=== PATIENT | female | born 1955 | race Caucasian/White ===

== ENCOUNTER 2020-04-20 12:11 | Inpatient (IN) | payer MEDICARE, MEDICAID ==
[~2020-04-20] VITALS: Ht 160 cm; Wt 47.8 kg
[~2020-04-20 12:11] MED LIST: ACET1TAB55 PO; BACL10TA2 PO; BACT2OIN10 TOP; BISA10SU4 PR; BISA5TAB29 PO; BISA5TAB7 PO; CAL-1CHW PO; CALC500T61 PO; CEFD1CAP8 PO; CRAN425C2 PO; DIAZ2TAB PO; DOCU100C16 PO; DRIS50003 PO; FENT25DI33 TD; FLEEENE4 PR; KETO2SHA8 TOP; LEVO88TA3 PO; MAPA500C PO; MILK120011 PO; OXYC1TAB23 PO; PERC5TAB12 PO; TYLE325T5 PO; VITMTA PO; cholecalciferol OR; fentanyl patch TOP; ketoconazole; milk of magnesia OR; multivitamin OR; tylenol OR
[2020-04-20 18:25] VITALS: BP 148/91
[2020-04-20] MEDS ORDERED: ACETAMINOPHEN TAB 650MG DOSE (2X325MG) PO PRN (19:45)
[2020-04-20] MEDS ORDERED: LEVO112T2 PO (19:50)
[2020-04-20] MEDS ORDERED: VITA50005 PO (19:55)
[2020-04-20] MEDS ORDERED: MILKSUS3 PO (19:55)
[2020-04-20] MEDS ORDERED: K-PHTAB2 PO (19:59)
[2020-04-20] MEDS ORDERED: ENSULIQ9 PO (19:59)
[2020-04-20] MEDS ORDERED: VANCOMYCIN HCL 1,000 MG, VIAL MATE ADAPTER 1 EACH in D5W 250 ML IV SCH (20:00)
[2020-04-20] MEDS ORDERED: HYDR-4517 PO (20:02)
[2020-04-20] MEDS ORDERED: SENN-80 PO (20:02)
[2020-04-20] MEDS ORDERED: ACET650S3 PR (20:02)
[2020-04-20] MEDS ORDERED: FENT75DI5 TD (20:03)
[2020-04-20] MEDS ORDERED: KETO2SHA8 TOP (20:05)
[2020-04-20] MEDS ORDERED: OXYB-54 PO (20:10)
[2020-04-20] MEDS ORDERED: MIRA1POW3 PO (20:10)
[2020-04-20] MEDS ORDERED: GUAI100L6 PO (20:10)
[2020-04-20] MEDS ORDERED: BISA5TAB77 PO (20:10)
[2020-04-20] MEDS ORDERED: BISA10SU27 PR (20:10)
[2020-04-20] MEDS ORDERED: ESTR1CRE PV (20:13)
[2020-04-20] MEDS ORDERED: FLEEENE12 PR (20:13)
--- NOTE | 2020-04-20 20:20 | HPEPDOC ---
General Date of Admission Apr 20, 2020 at 18:25 Date of Service: Apr 20, 2020 Chief Complaint The patient is a 64-year-old female admitted with a reason for visit of Metabolic Encephalopathy. Source: Patient, Family Exam Limitations: Clinical conditions Timing/Duration: Day(s) Severity: Moderate ( ) History of Present Illness Patient is 64 years old female with past mental history of nephrolithiasis, recurrent UTI, multiple sclerosis, tetraplegic was transferred from [facility] with UTI. Patient was admitted to the [facility] on 04/18/2020 with sepsis secondary to UTI. Patient received antibiotic treatment with ceftriaxone. During hospital stay patient developed oropharyngeal dysfunction and was unable to tolerate oral intake. Patient was transferred to [facility] for possible PEG placement. Blood culture was positive for gram- positive cocci in clusters. Patient denied fever, chills, chest pain, palpitations, nausea, vomiting, diarrhea Home Medications Scheduled Baclofen (Baclofen) 10 Mg Tab, 10 MG PO QID, (Reported) Ergocalciferol (Vitamin D2) (Vitamin D2) 50,000 Units Cap, 50,000 UNITS PO QWEEK , (Reported) Estradiol (Estrace) 42.5 Gm Cream.appl, 1 APLCT PV QHS, (Reported) Ketoconazole (Ketoconazole) 120 Ml Shampoo, 1 DOSE TOP DAILY, (Reported) Lactose-Reduced Food (Ensure Plus) 237 Ml Liquid, 237 ML PO DAILY, (Reported) Levothyroxine Sodium (Levothyroxine Sodium) 112 Mcg Tablet, 112 MCG PO QAM, (Reported) Oxybutynin Chloride (Oxybutynin Chloride ER) 5 Mg Tab.er.24, 5 MG PO DAILY, (Reported) Polyethylene Glycol 3350 (Miralax) 17 Gm Powd.pack, 17 GM PO DAILY, (Reported) Sennosides (Senna) 8.6 Mg Tablet, 17.2 MG PO QHS, (Reported) Sod Phos Di, [place]/K Phos [place] (K-Phos Neutral Tablet) 250 Mg Tablet, 250 MG PO TID, (Reported) Sodium Phosphate,[place]-Dibasic (Fleet Enema) 133 Ml Enema, 1 SILVESTRE MT DAILY, (Reported) fentaNYL (fentaNYL) 75 Mcg Patch.td72, 75 MCG TD Q3D, (Reported) Scheduled PRN Acetaminophen (Acetaminophen) 325 Mg Tab, 650 MG PO Q6H PRN for FEVER, (Reported) Acetaminophen (Acetaminophen) 650 Mg Supp.rect, 650 MG MT Q6H PRN for PAIN, (Reported) Bisacodyl (Bisacodyl) 10 Mg Supp.rect, 10 MG MT QHS PRN for CONSTIPATION, (Reported) Bisacodyl (Bisacodyl) 5 Mg Tablet.dr, 5 MG PO QHS PRN for CONSTIPATION, (Reported) Guaifenesin (Guaifenesin) 100 Mg/5 Ml Liquid, 10 ML PO Q4H PRN for emeli, (Reported) Hydrocodone/Acetaminophen (Hydrocodone-Acetamin 10-325 mg) 1 Each Tablet, 1 TAB PO Q6H PRN for PAIN, (Reported) Magnesium Hydroxide (Milk of Magnesia) 400 Mg/5 Ml Oral.susp, 30 ML PO DAILY PRN for CONSTIPATION, (Reported) Allergies Coded Allergies: MS - Ciprofloxacin (Verified Allergy, Unknown, UNKNOWN REACTION, 03/13/15) Past Medical History Medical History Multiple sclerosis, tetraplegic, GERD, anxiety, chronic anemia, depression, c hronic constipation, hypothyroidism, sleep apnea, nephrolithiasis, vancomycin resistant enterococcus infections, osteoporosis, neurology gallbladder due to MS Surgical History Dental surgery, nephrostomy, tubal ligation Family History I personally reviewed family history and found not pertinent Social History * Smoker: former Smoker Alcohol: Denies Drugs: denies A-FIB/CHADSVASC A-FIB History Current/History of A-Fib/PAF?: No Current PO Anticoag Therapy: No Review of Systems Constitutional: Denies: Chills Eyes: Denies: Pain ENT: Denies: Head Aches Skin: Denies: Rash Pulmonary: Denies: Dyspnea Cardiovascular: Denies: Chest Pain Gastrointestinal: Denies: Nausea, Vomiting Genitourinary: Denies: Dysuria Hematologic: Denies: Bruising, Bleeding Excessively Endocrine: Denies: Polydipsia Musculoskeletal: Denies: Neck Pain Neurological: Reports: Incoordination (quadriplegic), Other Symptoms (didn't reach) Psych: Reports: Anxiety Physical Examination General Exam: Positive: Cooperative, Mild Distress Eye Exam: Positive: PERRLA ENT Exam: Positive: Atraumatic Neck Exam: Positive: Supple; Negative: JVD Chest Exam: Positive: Clear to auscultation Heart Exam: Positive: Rate Normal Telemetry: Positive: No significant arrhythmia Abdomen Exam: Positive: Normal bowel sounds, Soft Extremity Exam: Negative: Clubbing, Cyanosis Skin Exam: Positive: Nl turgor and temperature Neuro Exam: Positive: Other (quadriplegic) Psych Exam: Positive: Anxiety Vital Signs Vital Signs Date Time Temp Pulse Resp B/P (MAP) Pulse Ox O2 Delivery O2 Flow Rate FiO2 04/20/20 18:25 98.3 97 19 148/91 (110) 95 Room Air Assessment/Plan Patient is 64 years old female with past mental history of nephrolithiasis, recurrent UTI, multiple sclerosis, tetraplegic was transferred from [facility] with UTI. Patient was admitted to the [facility] on 04/18/2020 with sepsis secondary to UTI. Patient received antibiotic treatment with ceftriaxone. During hospital stay patient developed oropharyngeal dysfunction and was unable to tolerate oral intake. Patient was transferred to [facility] for possible PEG placement. Blood culture was positive for gram- positive cocci in clusters. Patient denied fever, chills, chest pain, palpitations, nausea, vomiting, diarrhea Problems (1) UTI (urinary tract infection) Status: Acute Problem Text: Patient has been treated for UTI in [facility] with ceftriaxone However patient has history of VRE and multiple UTIs in the past Blood culture positive for gram-positive cocci in clusters I will start Linezolid IV Will repeat blood culture, urine culture IV fluid (2) Hypothyroidism Status: Chronic Problem Text: Continue home meds (3) Metabolic encephalopathy Problem Text: Patient slightly confused Secondary to UTI Continue treatment with antibiotics (4) Multiple sclerosis Status: Chronic Problem Text: Follow-up with neurologist in the outpatient settings (5) Oropharyngeal aspiration Status: Acute Problem Text: Could be secondary to natural progression of multiple sclerosis or secondary to UTI Speech evaluation tomorrow. We'll discuss with surgical team PEG placement Plan / VTE VTE Prophylaxis Ordered?: Yes TG HARVEY DO Apr 20, 2020 20:20
[2020-04-20] MEDS ORDERED: MOM 30ML SUSPENSION UDC PO PRN (20:30)
[2020-04-20] MEDS ORDERED: guaiFENesin SYRUP 200 MG/10 ML UDC PO PRN (20:30)
[2020-04-20] MEDS ORDERED: BISACODYL 10 MG SUPP PR PRN (20:30)
[2020-04-20] MEDS: D5W/0.9% SODIUM CHLORIDE 1,000 ML IV SCH (20:52)
[2020-04-20] MEDS ORDERED: SENNA 8.6 MG TAB (SENOKOT) PO SCH (21:00)
[2020-04-20] MEDS: K-PHOS NEUTRAL 250MG TABLET (SOD.PHOSPHATE/POT.PHOSPHATE) PO SCH (21:00)
[2020-04-20] MEDS: BACLOFEN 10 MG TAB PO SCH (21:00)
[2020-04-20] MEDS: LINEZOLID 600 MG in IV 1 EA IV SCH (21:01)
[2020-04-20 21:02] LABS: HEMOGLOBIN 10.7 g/dl (12.0-15.5); MEAN CORPUSCULAR HEMOGLOBIN 25.4 pg (27.0-33.0); MEAN CORPUSCULAR HGB CONC 30.6 g/dl (32.0-36.5); MEAN CORPUSCULAR VOLUME 83.1 fl (80.0-96.0); PLATELET COUNT, AUTOMATED 254 10^3/uL (150-450); RED BLOOD COUNT 4.21 10^6/uL (4.00-5.40); WHITE BLOOD COUNT 12.5 10^3/uL (4.0-10.0)
[2020-04-20 21:19] LABS: ALBUMIN 3.4 GM/DL (3.2-5.2); ALT/SGPT 13 U/L (12-78); BILIRUBIN,TOTAL 0.5 MG/DL (0.2-1.0); BLOOD UREA NITROGEN 9 MG/DL (7-18); CALCIUM LEVEL 8.5 MG/DL (8.8-10.2); CARBON DIOXIDE LEVEL 15 MEQ/L (21-32); CHLORIDE LEVEL 112 MEQ/L (98-107); CREATININE FOR GFR 0.49 MG/DL (0.55-1.30); GLOMERULAR FILTRATION RATE > 60.0 (>45); GLUCOSE, FASTING 53 MG/DL (70-100); POTASSIUM SERUM 3.3 MEQ/L (3.5-5.1); SODIUM LEVEL 138 MEQ/L (136-145); TOTAL PROTEIN 7.6 GM/DL (6.4-8.2)
[2020-04-20 22:00] VITALS: BP 146/86
[2020-04-20] MEDS ORDERED: ACETAMINOPHEN 650 MG SUPP PR PRN (22:00)
[2020-04-21] MEDS: D5W/0.9% SODIUM CHLORIDE 1,000 ML IV SCH (04:20)
[2020-04-21] MEDS ORDERED: LEVOTHYROXINE 112MCG TABLET (0.112MG) PO SCH (06:00)
[2020-04-21] MEDS ORDERED: KCL 10MEQ/100ML SWI (KRUN) 10 MEQ in IV 1 EA IV ONE (08:15)
[2020-04-21] MEDS: BACLOFEN 10 MG TAB PO SCH (08:22)
[2020-04-21] MEDS: K-PHOS NEUTRAL 250MG TABLET (SOD.PHOSPHATE/POT.PHOSPHATE) PO SCH (08:22)
[2020-04-21] MEDS ORDERED: MIRALAX *UNIT DOSE* 17GM PACKET PO SCH (09:00)
[2020-04-21] MEDS ORDERED: ENOXAPARIN 30MG/0.3ML SYRINGE (J1650 PER 10MG) SC SCH (09:00)
[2020-04-21] MEDS ORDERED: oxyBUTYnin *DITROPAN XL* 5 MG TABCR PO SCH (09:00)
[2020-04-21] MEDS ORDERED: FLEET ENEMA PR SCH (09:00)
--- NOTE | 2020-04-21 10:09 | REPVR ---
PROCEDURE INFORMATION: Exam: US Retroperitoneal Limited, Kidneys Exam date and time: 04/21/2020 9:52 AM Age: 64 years old Clinical indication: Screening exam; Other: Metabolic encephalopathy; Additional info: Kidneys and bladder TECHNIQUE: Imaging protocol: Real-time ultrasound of the retroperitoneum with image documentation. Examination was focused on the kidneys. COMPARISON: CT ABD PELVIS W/O FOL BY WIT 06/13/2015 12:01 PM FINDINGS: Right kidney: Right kidney measures 8.6 x 4.0 x 4.5 cm. There is preservation of the parenchymal echotexture. No hydronephrosis. There are two calculi within the mid to lower pole of the right kidney measuring 10 x 10 mm and 7 x 9 mm respectively. Left kidney: Left kidney measures 10.5 x 4.3 x 5.5 cm. Preservation of the parenchymal echotexture. Mild left hydronephrosis. No definite calculi visualized. Bladder: Urinary bladder is partially distended and otherwise unremarkable. Bilateral ureteral jets are visualized. IMPRESSION: 1. Right nephrolithiasis. No evidence of hydronephrosis on the right. 2. Mild left hydronephrosis. 3. Bilateral ureteral jets are visualized. Electronically signed by: Emre Dior On 04/21/2020 10:09:52 AM
[2020-04-21] MEDS: LINEZOLID 600 MG in IV 1 EA IV SCH (10:48)
[2020-04-21] MEDS ORDERED: LINE1TAB6 PO (10:50)
--- NOTE | 2020-04-21 14:52 | DS.PDOC ---
Discharge Summary General Date of Admission Apr 20, 2020 at 18:25 Date of Discharge 04/21/20 Discharge Summary PROCEDURES PERFORMED DURING STAY: [None]. ADMITTING DIAGNOSES: UTI (urinary tract infection) Hypothyroidism Metabolic encephalopathy Multiple sclerosis Oropharyngeal aspiration DISCHARGE DIAGNOSES: UTI (urinary tract infection) Hypothyroidism Metabolic encephalopathy Multiple sclerosis Oropharyngeal aspiration COMPLICATIONS/CHIEF COMPLAINT: Metabolic Encephalopathy. HISTORY OF PRESENT ILLNESS: Patient is 64 years old female with past mental history of nephrolithiasis, recurrent UTI, multiple sclerosis, tetraplegic [facility]2020 with sepsis secondary to UTI. Patient received antibiotic treatment with ceftriaxone. During hospital stay patient developed oropharyngeal dysfunction and was unable to tolerate oral intake. Patient was transferred to [facility] for possible PEG placement. Blood culture was positive for gram-positive cocci in clusters. Patient denied fever, chills, chest pain, palpitations, nausea, vomiting, diarrhea HOSPITAL COURSE: During hospital stay the following issues addressed (1) UTI (urinary tract infection) Patient has been treated for [facility]TI in [facility] with ceftriaxone However patient has history of VRE and multiple UTIs in the past Blood culture positive for gram-positive cocci in clusters Linezolid IV started blood culture, urine culture pending IV fluid (2) Hypothyroidism Continue home meds (3) Metabolic encephalopathy Patient slightly confused Secondary to UTI Continue treatment with antibiotics (4) Multiple sclerosis Follow-up with neurologist in the outpatient settings (5) Oropharyngeal aspiration Could be secondary to natural progression of multiple sclerosis or secondary to UTI Speech therapist evaluated patient and modified diet. No need for PEG tube placement DISCHARGE MEDICATIONS: Please see below. ALLERGIES: Please see below. PHYSICAL EXAMINATION ON DISCHARGE: Physical Examination General Exam: Positive: Cooperative, Mild Distress Eye Exam: Positive: PERRLA ENT Exam: Positive: Atraumatic Neck Exam: Positive: Supple; Negative: JVD Chest Exam: Positive: Clear to auscultation Heart Exam: Positive: Rate Normal Telemetry: Positive: No significant arrhythmia Abdomen Exam: Positive: Normal bowel sounds, Soft Extremity Exam: Negative: Clubbing, Cyanosis Skin Exam: Positive: Nl turgor and temperature Neuro Exam: Positive: Other (quadriplegic) Psych Exam: Positive: Anxiety LABORATORY DATA: Please see below. IMAGING: [facility] NAME: GRAEME JENSEN DATE OF : 1955 BUSINESS NUMBER: [id number] AGE: 64 SEX: F REPORT #: [id number] ROOM: [address] TECHNOLOGIST: AMANDA DOCTOR: TG HARVEY DO Ordered for Date&Time: 04/21/2054 cc: [~ rep ct ivnm] Service Date&Time: 04/21/20951 This report is in Signed status. Interpretation performed by [facility]. Thank you for having your radiology procedures performed at [facility] RADIOLOGY REPORT Date&Time printed: [~ rep prt dt last] [~ rep prt tm last] Page 2 of 2 [place] [id number] RADIOLOGY REPORT This report is in Signed status. Interpretation performed by [facility]. Thank you for having your radiology procedures performed at [facility] RADIOLOGY REPORT Date&Time printed: [~ rep prt dt last] [~ rep prt tm last] Page 1 of 1 PROCEDURE INFORMATION: Exam: US Retroperitoneal Limited, Kidneys Exam date and time: 04/21/2020 9:52 AM Age: 64 years old Clinical indication: Screening exam; Other: Metabolic encephalopathy; Additional info: Kidneys and bladder TECHNIQUE: Imaging protocol: Real-time ultrasound of the retroperitoneum with image documentation. Examination was focused on the kidneys. COMPARISON: CT ABD PELVIS W/O FOL BY ADIA 06/13/2015 12:01 PM FINDINGS: Right kidney: Right kidney measures 8.6 x 4.0 x 4.5 cm. There is preservation of the parenchymal echotexture. No hydronephrosis. There are two calculi within the mid to lower pole of the right kidney measuring 10 x 10 mm and 7 x 9 mm respectively. Left kidney: Left kidney measures 10.5 x 4.3 x 5.5 cm. Preservation of the parenchymal echotexture. Mild left hydronephrosis. No definite calculi visualized. Bladder: Urinary bladder is partially distended and otherwise unremarkable. Bilateral ureteral jets are visualized. IMPRESSION: 1. Right nephrolithiasis. No evidence of hydronephrosis on the right. 2. Mild left hydronephrosis. 3. Bilateral ureteral jets are visualized. Electronically signed by: Collins Dior On 04/21/2020 10:09:52 AM DD: COLLINS DIOR MD 04/21/20951 DT: VR 04/21/209 DS: GERALD 04/21/20 100 [~ rep ct labl] PROGNOSIS: ACTIVITY: [As tolerated]. DIET: Modified diet DISPOSITION: Snf Other [facility]. ITEMS TO FOLLOWUP ON ON OUTPATIENT: Follow-up with PCP, neurologist and urologist DISCHARGE CONDITION: [Stable]. TIME SPENT ON DISCHARGE: Greater than 40 minutes. Vital Signs/I&Os Vital Signs Date Time Temp Pulse Resp B/P (MAP) Pulse Ox O2 Delivery O2 Flow Rate FiO2 04/20/20 22:00 98.6 97 20 146/86 (106) 97 Room Air I&O- Last 24 Hours up to 6 AM 04/21/20 06:00 Intake Total 300 ml Balance 300 ml Laboratory Data Labs 24H Laboratory Tests 2 04/20/20 20:41: Urine Color STRAW, Urine Appearance CLOUDYH, Urine pH 6.0, Urine Specific Grav ity 1.010, Urine Protein NEGATIVE, Urine Glucose (UA) NEGATIVE, Urine Ketones 2+H, Urine Blood 2+H, Urine Nitrite NEGATIVE, Urine Bilirubin NEGATIVE, Urine Urobilinogen 0.2, Urine Leukocyte Esterase 3+H, Urine WBC (Auto) 89H, Urine RBC (Auto) 30H, Urine Hyaline Casts (Auto) 0, Urine Bacteria (Auto) NEGATIVE, Urine Squamous Epithelial Cells 8, Urine Transitional Epithelial Cells 1, Urine Amorphous Sediment SMALLH, Urine Mucus (Auto) SMALL, Urine Sperm (Auto) 04/20/20 20:44: Nucleated Red Blood Cells % (auto) 0.0, Anion Gap 11, Glomerular Filtration Rate > 60.0, Lactic Acid Level 1.1, Calcium Level 8.5L, Total Bilirubin 0.5, Aspartate Amino Transf (AST/SGOT) 13, Alanine Aminotransferase (ALT/SGPT) 13, Alkaline Phosphatase 59, Total Protein 7.6, Albumin 3.4, Albumin/Globulin Ratio 0.8L, Methicillin-Resist S.aureus DNA PCR NOT DETECTED CBC/BMP Laboratory Tests 04/20/20 20:44 Microbiology Microbiology 04/21/20 Respiratory Virus Panel (PCR) (KRISTINA) - Final, Complete 04/20/20 Blood Culture, Received Pending 04/20/20 Blood Culture, Received Pending 04/20/20 Urine Culture, Received Pending Discharge Medications Scheduled Baclofen (Baclofen) 10 Mg Tab, 10 MG PO QID, (Reported) Ergocalciferol (Vitamin D2) (Vitamin D2) 50,000 Units Cap, 50,000 UNITS PO QWEEK, (Reported) Estradiol (Estrace) 42.5 Gm Cream.appl, 1 APLCT PV QHS, (Reported) Ketoconazole (Ketoconazole) 120 Ml Shampoo, 1 DOSE TOP DAILY, (Reported) Lactose-Reduced Food (Ensure Plus) 237 Ml Liquid, 237 ML PO DAILY, (Reported) Levothyroxine Sodium (Levothyroxine Sodium) 112 Mcg Tablet, 112 MCG PO QAM, (Reported) Linezolid (Linezolid) 600 Mg Tablet, 1 TAB PO BID Oxybutynin Chloride (Oxybutynin Chloride ER) 5 Mg Tab.er.24, 5 MG PO DAILY, (Reported) Polyethylene Glycol 3350 (Miralax) 17 Gm Powd.pack, 17 GM PO DAILY, (Reported) Sennosides (Senna) 8.6 Mg Tablet, 17.2 MG PO QHS, (Reported) Sod Phos Di, [place]/K Phos [place] (K-Phos Neutral Tablet) 250 Mg Tablet, 250 MG PO TID, (Reported) Sodium Phosphate,[place]-Dibasic (Fleet Enema) 133 Ml Enema, 1 SILVESTRE [place] DAILY, (Reported) fentaNYL (fentaNYL) 75 Mcg Patch.td72, 75 MCG TD Q3D, (Reported) Scheduled PRN Acetaminophen (Acetaminophen) 325 Mg Tab, 650 MG PO Q6H PRN for FEVER, (Reported) Acetaminophen (Acetaminophen) 650 Mg Supp.rect, 650 MG RI Q6H PRN for PAIN, (Reported) Bisacodyl (Bisacodyl) 10 Mg Supp.rect, 10 MG RI QHS PRN for CONSTIPATION, (Reported) Bisacodyl (Bisacodyl) 5 Mg Tablet.dr, 5 MG PO QHS PRN for CONSTIPATION, (Reported) Guaifenesin (Guaifenesin) 100 Mg/5 Ml Liquid, 10 ML PO Q4H PRN for emeli, (Reported) Hydrocodone/Acetaminophen (Hydrocodone-Acetamin 10-325 mg) 1 Each Tablet, 1 TAB PO Q6H PRN for PAIN, (Reported) Magnesium Hydroxide (Milk of Magnesia) 400 Mg/5 Ml Oral.susp, 30 ML PO DAILY PRN for CONSTIPATION, (Reported) Allergies Coded Allergies: ciprofloxacin (Verified Allergy, Unknown, 04/20/20) TG HARVEY DO Apr 21, 2020 14:52
== END 2020-04-21 12:00 | DRG 689 ==
LOC: M MS5PR 18:25
PROVIDERS: ADMIT Internal Medicine; ATTEND Internal Medicine
DX: N39.0 Urinary tract infection, site not specified (principal); G93.41 Metabolic encephalopathy; G82.50 Quadriplegia, unspecified; E03.9 Hypothyroidism, unspecified; G35 Multiple sclerosis; Z66 Do not resuscitate; Z79.899 Other long term (current) drug therapy; Z87.442 Personal history of urinary calculi; Z88.1 Allergy status to other antibiotic agents

== ENCOUNTER 2020-04-23 13:11 | Inpatient (IN) | payer MEDICARE, MEDICAID ==
[~2020-04-23 13:11] MED LIST changes: +ACET650S3 PR; +BISA10SU27 PR; +BISA5TAB77 PO; +ENSULIQ9 PO; +ESTR1CRE PV; +FENT75DI5 TD; +FLEEENE12 PR; +GUAI100L6 PO; +HYDR-4517 PO; +K-PHTAB2 PO; +LEVO112T2 PO; +LINE1TAB6 PO; +MILKSUS3 PO; +MIRA1POW3 PO; +OXYB-54 PO; +SENN-80 PO; +VITA50005 PO
[2020-04-23 14:17] LABS: BASO # 0.1 10^3/uL (0.0-0.2); BASO % 0.5 % (0.0-1.0); EOS # 0.6 10^3/uL (0.0-0.5); HEMATOCRIT 38.6 % (36.0-47.0); HEMOGLOBIN 12.3 g/dl (12.0-15.5); LYMPH # 3.5 10^3/uL (1.5-5.0); LYMPH % 22.6 % (24.0-44.0); MEAN CORPUSCULAR HEMOGLOBIN 25.8 pg (27.0-33.0); MEAN CORPUSCULAR HGB CONC 31.9 g/dl (32.0-36.5); MEAN CORPUSCULAR VOLUME 80.9 fl (80.0-96.0); MONO # 1.2 10^3/uL (0.0-0.8); MONO % 7.9 % (0.0-5.0); NEUTROPHILS # 10.1 10^3/uL (1.5-8.5); NEUTROPHILS % 64.5 % (36.0-66.0); PLATELET COUNT, AUTOMATED 330 10^3/uL (150-450); RED BLOOD COUNT 4.77 10^6/uL (4.00-5.40); WHITE BLOOD COUNT 15.7 10^3/uL (4.0-10.0)
--- NOTE | 2020-04-23 14:29 | REPVR ---
PROCEDURE INFORMATION: Exam: XR Chest, 1 View Exam date and time: 04/23/2020 2:05 PM Age: 64 years old Clinical indication: Cough and dyspnea; Additional info: Dyspnea/cough TECHNIQUE: Imaging protocol: XR of the chest Views: 1 view. COMPARISON: CR Chest, 2 view PA, Lat 06/13/2015 11:54 AM FINDINGS: Tubes, catheters and devices: External monitoring devices present. Lungs: Unremarkable. No consolidation. Pleural space: Unremarkable. No pleural effusion. No pneumothorax. Heart/Mediastinum: Unremarkable. No cardiomegaly. Bones/joints: Rotatory dextroscoliosis of the thoracic spine Generalized decrease in bone density. Deformity of the right humeral head suggest fracture likely chronic. IMPRESSION: No acute findings Electronically signed by: Zena Denney On 04/23/2020 14:28:30 PM
[2020-04-23 15:00] LABS: ALBUMIN 3.1 GM/DL (3.2-5.2); ALT/SGPT 13 U/L (12-78); BILIRUBIN,DIRECT 0.2 MG/DL (0.0-0.2); BILIRUBIN,TOTAL 0.6 MG/DL (0.2-1.0); BLOOD UREA NITROGEN 14 MG/DL (7-18); CARBON DIOXIDE LEVEL 25 MEQ/L (21-32); CHLORIDE LEVEL 105 MEQ/L (98-107); CK-MB VALUE MASS 2.3 NG/ML (<3.6); CPK CREATINE PHOSPHOKINASE 33 U/L (26-192); CREATININE FOR GFR 0.61 MG/DL (0.55-1.30); GLOMERULAR FILTRATION RATE > 60.0 (>45); GLUCOSE, FASTING 82 MG/DL (70-100); MB/CK RELATIVE INDEX 6.97 (< OR =4); NT-PRO BNP 1156 PG/ML (<125); POTASSIUM SERUM 2.7 MEQ/L (3.5-5.1); SODIUM LEVEL 139 MEQ/L (136-145); THYROXINE (T4) 15.9 UG/DL (4.5-12.0); TOTAL PROTEIN 7.7 GM/DL (6.4-8.2); TROPONIN I 0.02 NG/ML (< 0.10)
[2020-04-23] MEDS ORDERED: POTASSIUM CHLORIDE 10% LIQ 20 MEQ/15 ML UDC PO ONE ×2 (15:45→16:45)
[2020-04-23] MEDS ORDERED: KCL 10MEQ/100ML SWI (KRUN) 10 MEQ in IV 1 EA IV ONE (16:30)
[2020-04-23] MEDS ORDERED: LINE1TAB6 PO (17:11)
[2020-04-23] MEDS ORDERED: VITA50005 PO (17:11)
[2020-04-23] MEDS ORDERED: KPHOS50TA PO (17:11)
[2020-04-23] MEDS ORDERED: ACET1TAB55 PO (17:11)
[2020-04-23] MEDS ORDERED: MOM 30ML SUSPENSION UDC PO PRN (18:15)
--- NOTE | 2020-04-23 19:51 | HPEPDOC ---
[facility] Medical History & Physical Date of Admission Apr 23, 2020 Date of Service: Apr 23, 2020 Attending Physician: ALAN KEITH MD History and Physical CHIEF COMPLAINT: confusion HISTORY OF PRESENT ILLNESS: 65 yo F with a hx of advanced MS (bed bound, tetraplegic), nephrolithiasis, recurrent UTIs (hx of VRE), was brought from [place] in [place] after she developed AMS with confusion, hallucinations. Her sister is a bedside, and describes the patient stating that "wild dogs were eating my feet". Patient was admitted to [facility] on 04/18/20 with sepsis 2/2 UTI. She was empirically treated with ceftriaxone. Urine Cx available with patient chart from 04/18/20 - 1 bottle positive for MRSA sensitive to Levaquin, Gent, Linezolid. During that admission patient developed dysphagia, reduced PO intake and was transfered to [facility] for PEG placement on 04/20/20. Per chart review, patient was started on Linezolid for then suspected gram positive bacteremia. RE[employer]URANCE CLAIMS ANALYST eval however did not indicate need for PEG, and patent was discharged to [facility] with PO linezolid for 10 days. Patient now returns with continue reduced PO intake, AMS with hallucination. WBC 15.5. Afebrile. THS 5.4. FT4 15.9. Trop 0.02. CKMB 6.97. K 2.7. LA 1.2. CXR showed no acute findings. Patient admitted for failure to thrive, REINSURANCE CLAIMS ANALYST eval, workup of bacteremia. PAST MEDICAL HISTORY: MS Tetraplegia Hypothyroidism GERD Nephrolithiasis UTI (VRE) GERD Chronic anemia Depression Anxiety Osteoporosis Neurogenic bladder 2/2 MS PAST SURGICAL HISTORY: nephrostomy tubal ligation dental surgery SOCIAL HISTORY: Resides in [place]. Otherwise no smoking, no drinking etoh, no illicit drug use FAMILY HISTORY: hx of unspecified cancer in father No MS in family ALLERGIES: Please see below. REVIEW OF SYSTEMS: limited, as patient is altered CONSTITUTIONAL: denies fevers, chills HEENT: denies blurred vision CARDIOVASCULAR: denies chest pain. RESPIRATORY: denies shortness of breath. GASTROINTESTINAL: denies abdominal pain . GENITOURINARY: unable to confirm or deny dysuria. MUSCULOSKELETAL: able to move R arm NEUROLOGICAL: unable to move both legs, L arm PSYCHIATRIC: AAO 0-1, confused. Per sister - had hallucination - dogs biting her legs HOME MEDICATIONS: Please see below. PHYSICAL EXAMINATION: VITAL SIGNS: please see below General: comfortable HEENT: PERRLA, EOMI, sclerae clear Neck: supple, normal ROM, no JVD Resp: lungs CTAB, no wheeze, no rales, no crackles CVS: RRR, normal S1, S2, blowing systolic murmur Abdo: soft, no masses, no hepatosplenomegaly, BS+, no rebound tenderness Extremities: no edema, pulses 2+ MSK: no joint deformities, normal ROM Neuro: unable to move both legs, left arm. contractures. minimal movement of R arm/hand, can grasp towel. contracted. Psych: calm, AAO x 0-1 LABORATORY DATA: See below. IMAGING: CXR (04/23): No acute abnormality MICROBIOLOGY: Please see below. ASSESSMENT: 65 yo F with a hx of advanced MS (bed bound, tetraplegic), nephrolithiasis, recurrent UTIs (hx of VRE), was brought from [place] in [place] after she developed AMS with confusion, hallucinations. Admitted for workup of acute encephalopathy likely secondary to infectious process. . PLAN: 1. Leukocytosis - Blood culture from 04/18/20 MRSA+ (1 bottle) at [facility] - started on linezolid at [facility] on 04/20/20, discharged with 10 days course - repeat BCx, UA, althoght I suspect little diagnostic yield at this stage. - resume IV linezolid - ordered TTE, examine for vegetations - IVF 2. Encephalopathy - likely 2/2 infectious process - continue IV antibiotics 3. Hypothyroidism - THS, FT4 elevated - increase home med - PCP f/u 4. Dysphagia - RE[employer]URANCE CLAIMS ANALYST eval 5. Hypokalemia - K 2.7 on admission - replace as needed - repeat BMP 6. MS - chronic, to f/u with neurologist in outpatient setting 7. Nephrolithiasis - hx of stents in past - reviewed renal US - L kidney mild hydronephrosis, no stones - R kidney, no hydronephrosis, 2 stones (10x10 mm, 7x9 mm) DVT ppx: lovenox Dispo: NH on DC Vital Signs Vital Signs Date Time Temp Pulse Resp B/P (MAP) Pulse Ox O2 Delivery O2 Flow Rate FiO2 04/23/20 15:02 97.6 83 19 123/56 (78) 96 Room Air Laboratory Data Labs 24H Laboratory Tests 2 04/23/20 13:58: Immature Granulocyte % (Auto) 0.5, Neutrophils (%) (Auto) 64.5, Lymphocytes (%) (Auto) 22.6L, Monocytes (%) (Auto) 7.9H, Eosinophils (%) (Auto) 4.0H, Basophils (%) (Auto) 0.5, Neutrophils # (Auto) 10.1H, Lymphocytes # (Auto) 3.5, Monocytes # (Auto) 1.2H, Eosinophils # (Auto) 0.6H, Basophils # (Auto) 0.1, Nucleated Red Blood Cells % (auto) 0.0, Anion Gap 9, Glomerular Filtration Rate > 60.0, Lactic Acid Level 1.2, Calcium Level 9.0, Total Bilirubin 0.6, Direct Bilirubin 0.2, Aspartate Amino Transf (AST/SGOT) 8, Alanine Aminotransferase (ALT/SGPT) 13, Alkaline Phosphatase 63, Total Creatine Kinase 33, Creatine Kinase MB 2.3, Creatine Kinase MB Relative Index 6.97H, Troponin I 0.02, KP-Uje-D-Type Natriuretic Peptide 1156H, Total Protein 7.7, Albumin 3.1L, Albumin/Globulin Ratio 0.7L, Thyroid Stimulating Hormone (TSH) 5.420H, Thyroxine (T4) 15.9H CBC/BMP Laboratory Tests 04/23/20 13:58 Microbiology Microbiology 04/23/20 Blood Culture, Received Pending 04/23/20 Blood Culture, Received Pending Home Medications Scheduled Baclofen (Baclofen) 10 Mg Tab, 10 MG PO QID Bisacodyl (Bisacodyl) 5 Mg Tablet.dr, 5 MG PO QHS Ergocalciferol (Vitamin D2) (Vitamin D2) 50,000 Units Cap, 50,000 UNITS PO QMONTH 13TH OF EACH MONTH Ergocalciferol (Vitamin D2) (Vitamin D2) 50,000 Units Cap, 50,000 UNITS PO DAILY FOR 7 DAYS START ON 04/22/20 Estradiol (Estrace) 42.5 Gm Cream.appl, 1 GM PV QHS Ketoconazole (Ketoconazole) 120 Ml Shampoo, 1 DOSE TOP QWEEK MONDAYS Lactose-Reduced Food (Ensure Plus) 237 Ml Liquid, 237 ML PO DAILY Levothyroxine Sodium (Levothyroxine Sodium) 112 Mcg Tablet, 112 MCG PO QAM Linezolid (Linezolid) 600 Mg Tablet, 600 MG PO BID FOR 10 DAYS, STARTED 04/21/20 AT 1900 Oxybutynin Chloride (Oxybutynin Chloride ER) 5 Mg Tab.er.24, 5 MG PO DAILY Polyethylene Glycol 3350 (Miralax) 17 Gm Powd.pack, 17 GM PO DAILY Potassium Phosphate Monobasic (K-Phos Original) 500 Mg Tablet.stephanie, 250 MG PO TID Sennosides (Senna) 8.6 Mg Tablet, 8.6 MG PO QHS fentaNYL (fentaNYL) 75 Mcg Patch.td72, 75 MCG TD Q3RD APPLIED TO LEFT CHEST Scheduled PRN Acetaminophen (Acetaminophen) 325 Mg Tab, 650 MG PO Q6H PRN for FEVER Acetaminophen (Acetaminophen) 650 Mg Supp.rect, 650 MG [place] Q6H PRN for PAIN Acetaminophen (Acetaminophen) 325 Mg Tablet, 650 MG PO BID PRN for PAIN LEVEL 1- 6 Bisacodyl (Bisacodyl) 10 Mg Supp.rect, 10 MG [place] QHS PRN for CONSTIPATION Guaifenesin (Guaifenesin) 100 Mg/5 Ml Liquid, 10 ML PO Q4H PRN for emeli Hydrocodone/Acetaminophen (Hydrocodone-Acetamin 10-325 mg) 1 Each Tablet, 1 TAB PO Q6H PRN for PAIN Magnesium Hydroxide (Milk of Magnesia) 400 Mg/5 Ml Oral.susp, 30 ML PO DAILY PRN for CONSTIPATION Sodium Phosphate,[place]-Dibasic (Fleet Enema) 133 Ml Enema, 1 SILVESTRE [place] DAILY PRN for CONSTIPATION Allergies Coded Allergies: ciprofloxacin (Verified Allergy, Unknown, 04/20/20) A-FIB/CHADSVASC A-FIB History Current/History of A-Fib/PAF?: No Current PO Anticoag Therapy: No ALAN KEITH MD Apr 23, 2020 19:51
[2020-04-23] MEDS ORDERED: guaiFENesin SYRUP 200 MG/10 ML UDC PO PRN (20:00)
[2020-04-23] MEDS ORDERED: NORCO, ANEXSIA 5/325MG TABLET (HYDROcodone/ACETAMINOPHEN) PO PRN (20:00)
[2020-04-23 20:30] VITALS: BP 96/63
[2020-04-23] MEDS ORDERED: POTASSIUM CHLORIDE 10 MEQ SR TABLET PO ONE (22:00)
[2020-04-23] MEDS: D5W 1,000 ML IV SCH (22:17)
[2020-04-23] MEDS: ENOXAPARIN 40MG/0.4ML SYRINGE (J1650 PER 10MG) SC SCH (22:18)
[2020-04-23] MEDS: ACETAMINOPHEN 325 MG TAB PO PRN (22:19)
[2020-04-23] MEDS: SENNA 8.6 MG TAB (SENOKOT) PO SCH (22:19)
[2020-04-23] MEDS: BACLOFEN 10 MG TAB PO SCH (22:19)
[2020-04-23] MEDS: BISACODYL 5 MG TAB PO SCH (22:20)
[2020-04-23] MEDS: DOCUSATE SODIUM 100 MG CAP PO SCH (22:21)
[2020-04-23 22:43] LABS: BLOOD UREA NITROGEN 13 MG/DL (7-18); CARBON DIOXIDE LEVEL 24 MEQ/L (21-32); CHLORIDE LEVEL 110 MEQ/L (98-107); GLOMERULAR FILTRATION RATE > 60.0 (>45); GLUCOSE, FASTING 90 MG/DL (70-100); POTASSIUM SERUM 4.4 MEQ/L (3.5-5.1); SODIUM LEVEL 139 MEQ/L (136-145)
[2020-04-23] MEDS: LINEZOLID 600 MG in IV 1 EA IV SCH (23:26)
[2020-04-24 06:00] VITALS: BP 116/70
[2020-04-24] MEDS ORDERED: LEVOTHYROXINE 112MCG TABLET (0.112MG) PO SCH (06:00)
[2020-04-24 06:18] LABS: BASO # 0.1 10^3/uL (0.0-0.2); BASO % 0.5 % (0.0-1.0); EOS # 0.4 10^3/uL (0.0-0.5); EOS % 3.2 % (0.0-3.0); HEMATOCRIT 40.6 % (36.0-47.0); HEMOGLOBIN 12.5 g/dl (12.0-15.5); LYMPH # 3.1 10^3/uL (1.5-5.0); MEAN CORPUSCULAR HEMOGLOBIN 25.5 pg (27.0-33.0); MEAN CORPUSCULAR HGB CONC 30.8 g/dl (32.0-36.5); MEAN CORPUSCULAR VOLUME 82.7 fl (80.0-96.0); MONO % 7.3 % (0.0-5.0); NEUTROPHILS # 8.4 10^3/uL (1.5-8.5); NEUTROPHILS % 64.6 % (36.0-66.0); PLATELET COUNT, AUTOMATED 327 10^3/uL (150-450); RED BLOOD COUNT 4.91 10^6/uL (4.00-5.40); WHITE BLOOD COUNT 12.9 10^3/uL (4.0-10.0)
[2020-04-24] MEDS: ACETAMINOPHEN 325 MG TAB PO PRN ×2 (06:27→22:36)
[2020-04-24 06:38] LABS: ALBUMIN 2.9 GM/DL (3.2-5.2); ALT/SGPT 12 U/L (12-78); BILIRUBIN,TOTAL 0.6 MG/DL (0.2-1.0); BLOOD UREA NITROGEN 14 MG/DL (7-18); CALCIUM LEVEL 8.8 MG/DL (8.8-10.2); CARBON DIOXIDE LEVEL 26 MEQ/L (21-32); CHLORIDE LEVEL 106 MEQ/L (98-107); CREATININE FOR GFR 0.62 MG/DL (0.55-1.30); GLOMERULAR FILTRATION RATE > 60.0 (>45); GLUCOSE, FASTING 118 MG/DL (70-100); MAGNESIUM LEVEL 2.1 MG/DL (1.8-2.4); SODIUM LEVEL 139 MEQ/L (136-145); TOTAL PROTEIN 7.4 GM/DL (6.4-8.2)
[2020-04-24] MEDS: oxyBUTYnin *DITROPAN XL* 5 MG TABCR PO SCH (09:16)
[2020-04-24] MEDS: BACLOFEN 10 MG TAB PO SCH ×4 (09:16→22:35)
[2020-04-24] MEDS: DOCUSATE SODIUM 100 MG CAP PO SCH ×2 (09:17→22:36)
[2020-04-24] MEDS: LINEZOLID 600 MG in IV 1 EA IV SCH ×2 (09:18→22:35)
[2020-04-24] MEDS: D5W 1,000 ML IV SCH (09:19)
--- NOTE | 2020-04-24 11:00 | IPNPDOC ---
Date Seen The patient was seen on 04/24/20. Progress Note SUBJECTIVE: Patient was seen and examined at bedside. Confused, disoriented to time and place, but oriented to person. Denies pain, fevers, chills. No acute events overnight. Afebrile. OBJECTIVE PHYSICAL EXAMINATION: VITAL SIGNS: Please see below. General: comfortable HEENT: PERRLA, EOMI, sclerae clear Neck: supple, normal ROM, no JVD Resp: lungs CTAB, no wheeze, no rales, no crackles CVS: RRR, normal S1, S2, blowing systolic murmur Abdo: soft, no masses, no hepatosplenomegaly, BS+, no rebound tenderness Extremities: no edema, pulses 2+ MSK: no joint deformities, normal ROM Neuro: unable to move both legs, left arm. contractures. minimal movement of R arm/hand, can grasp towel. contracted. Psych: calm, AAO x 0-1 LABORATORY DATA, IMAGING STUDIES, MICROBIOLOGY: Please see below. Echocardiogram: ordered, pending. DVT prophylaxis ordered?: Y, lovenox ASSESSMENT: 65 yo F with a hx of advanced MS (bed bound, tetraplegic), nephrolithiasis, recurrent UTIs (hx of VRE), was brought from [place] in [place] after she developed AMS with confusion, hallucinations. Admitted for workup of acute encephalopathy likely secondary to infectious process. . PLAN: 1. Leukocytosis - WBC trending down 15.7-> 12.9 - Blood culture from 04/18/20 MRSA+ (1 bottle) at [facility] - started on linezolid at [facility] on 04/20/20, discharged with 10 days course - repeat BCx, UA, althoght I suspect little diagnostic yield at this stage. - resume IV linezolid - ordered TTE, examine for vegetations - IVFf 2. Encephalopathy - likely 2/2 infectious process - continue IV antibiotics 3. Hypothyroidism - THS, FT4 elevated - increase home med synthroid to 125 mcg/day - PCP f/u 4. Dysphagia - MVA REACTOR OPERATOR eval - decision for PEG after re-eval 5. Hypokalemia - K 4.0. 6. MS - chronic, to f/u with neurologist in outpatient setting - tetraplegia - frequent turning 7. Nephrolithiasis - hx of stents in past - reviewed renal US - L kidney mild hydronephrosis, no stones - R kidney, no hydronephrosis, 2 stones (10x10 mm, 7x9 mm) - Cr remains wnl, if rising, consider urology consult DVT ppx: lovenox Dispo: NH on DC VS, I&O, 24H, Fishbone Vital Signs/I&O Vital Signs Date Time Temp Pulse Resp B/P (MAP) Pulse Ox O2 Delivery O2 Flow Rate FiO2 04/24/20 06:00 97.8 83 18 116/70 (85) 98 Room Air I&O- Last 24 Hours up to 6 AM 04/24/20 06:00 Intake Total 0 ml Output Total 500 ml Balance -500 ml Laboratory Data 24H LABS Laboratory Tests 2 04/23/20 13:58: Immature Granulocyte % (Auto) 0.5, Neutrophils (%) (Auto) 64.5, Lymphocytes (%) (Auto) 22.6L, Monocytes (%) (Auto) 7.9H, Eosinophils (%) (Auto) 4.0H, Basophils (%) (Auto) 0.5, Neutrophils # (Auto) 10.1H, Lymphocytes # (Auto) 3.5, Monocytes # (Auto) 1.2H, Eosinophils # (Auto) 0.6H, Basophils # (Auto) 0.1, Nucleated Red Blood Cells % (auto) 0.0, Anion Gap 9, Glomerular Filtration Rate > 60.0, Lactic Acid Level 1.2, Calcium Level 9.0, Total Bilirubin 0.6, Direct Bilirubin 0.2, Aspartate Amino Transf (AST/SGOT) 8, Alanine Aminotransferase (ALT/SGPT) 13, Alkaline Phosphatase 63, Total Creatine Kinase 33, Creatine Kinase MB 2.3, Creatine Kinase MB Relative Index 6.97H, Troponin I 0.02, SO-Pls-Q-Type Natriuretic Peptide 1156H, Total Protein 7.7, Albumin 3.1L, Albumin/Globulin Ratio 0.7L, Thyroid Stimulating Hormone (TSH) 5.420H, Thyroxine (T4) 15.9H 04/23/20 22:08: Anion Gap 5L, Glomerular Filtration Rate > 60.0, Calcium Level 9.0 04/23/20 22:59: Urine Color YELLOW, Urine Appearance HAZY, Urine pH 6.0, Urine Specific Burkett 1.014, Urine Protein 1+H, Urine Glucose (UA) 1+H, Urine Ketones 1+H, Urine Blood 1+H, Urine Nitrite NEGATIVE, Urine Bilirubin NEGATIVE, Urine Urobilinogen 0.2, Urine Leukocyte Esterase 1+H, Urine WBC (Auto) 67H, Urine RBC (Auto) 7H, Urine Hyaline Casts (Auto) 1, Urine Bacteria (Auto) NEGATIVE, Urine Squamous Epithelial Cells 4, Urine Mucus (Auto) SMALL, Urine Sperm (Auto) 04/24/20 05:28: Immature Granulocyte % (Auto) 0.4, Neutrophils (%) (Auto) 64.6, Lymphocytes (%) (Auto) 24.0, Monocytes (%) (Auto) 7.3H, Eosinophils (%) (Auto) 3.2H, Basophils (%) (Auto) 0.5, Neutrophils # (Auto) 8.4, Lymphocytes # (Auto) 3.1, Monocytes # (Auto) 1.0H, Eosinophils # (Auto) 0.4, Basophils # (Auto) 0.1, Nucleated Red Blood Cells % (auto) 0.0, Anion Gap 7L, Glomerular Filtration Rate > 60.0, Calcium Level 8.8, Total Bilirubin 0.6, Aspartate Amino Transf (AST/SGOT) 7, Alanine Aminotransferase (ALT/SGPT) 12, Alkaline Phosphatase 62, Total Protein 7.4, Albumin 2.9L, Albumin/Globulin Ratio 0.6L, Magnesium Level 2.1 CBC/BMP Laboratory Tests 04/23/20 13:58 04/23/20 22:08 04/24/20 05:28 Microbiology Microbiology 04/23/20 Urine Culture, Received Pending 04/23/20 Blood Culture, Received Pending 04/23/20 Blood Culture, Received Pending ALAN KEITH MD Apr 24, 2020 11:00
[2020-04-24 14:00] VITALS: BP 115/64
[2020-04-24 20:00] VITALS: BP 158/83
[2020-04-24] MEDS: ENOXAPARIN 40MG/0.4ML SYRINGE (J1650 PER 10MG) SC SCH (22:35)
[2020-04-24] MEDS: SENNA 8.6 MG TAB (SENOKOT) PO SCH (22:35)
[2020-04-24] MEDS: BISACODYL 5 MG TAB PO SCH (22:35)
[2020-04-25] MEDS: D5W 1,000 ML IV SCH ×2 (00:51→08:31)
[2020-04-25] MEDS: LEVOTHYROXINE 125MCG TABLET (0.125MG) PO SCH (05:41)
[2020-04-25 06:00] VITALS: BP 119/70
[2020-04-25 08:24] LABS: BASO % 0.5 % (0.0-1.0); EOS # 0.6 10^3/uL (0.0-0.5); EOS % 6.8 % (0.0-3.0); HEMATOCRIT 44.3 % (36.0-47.0); HEMOGLOBIN 13.5 g/dl (12.0-15.5); LYMPH # 1.9 10^3/uL (1.5-5.0); LYMPH % 21.5 % (24.0-44.0); MEAN CORPUSCULAR HEMOGLOBIN 25.4 pg (27.0-33.0); MEAN CORPUSCULAR HGB CONC 30.5 g/dl (32.0-36.5); MEAN CORPUSCULAR VOLUME 83.4 fl (80.0-96.0); MONO # 0.7 10^3/uL (0.0-0.8); MONO % 7.6 % (0.0-5.0); NEUTROPHILS # 5.5 10^3/uL (1.5-8.5); NEUTROPHILS % 63.4 % (36.0-66.0); PLATELET COUNT, AUTOMATED 287 10^3/uL (150-450); RED BLOOD COUNT 5.31 10^6/uL (4.00-5.40); WHITE BLOOD COUNT 8.6 10^3/uL (4.0-10.0)
[2020-04-25] MEDS: DOCUSATE SODIUM 100 MG CAP PO SCH ×2 (08:31→21:00)
[2020-04-25] MEDS: oxyBUTYnin *DITROPAN XL* 5 MG TABCR PO SCH (08:31)
[2020-04-25] MEDS: BACLOFEN 10 MG TAB PO SCH ×4 (08:31→21:23)
[2020-04-25] MEDS: LINEZOLID 600 MG in IV 1 EA IV SCH ×2 (08:31→21:25)
[2020-04-25 09:16] LABS: ALBUMIN 2.9 GM/DL (3.2-5.2); ALT/SGPT 11 U/L (12-78); BILIRUBIN,TOTAL 0.6 MG/DL (0.2-1.0); BLOOD UREA NITROGEN 7 MG/DL (7-18); CALCIUM LEVEL 8.8 MG/DL (8.8-10.2); CARBON DIOXIDE LEVEL 22 MEQ/L (21-32); CHLORIDE LEVEL 106 MEQ/L (98-107); CREATININE FOR GFR 0.68 MG/DL (0.55-1.30); GLOMERULAR FILTRATION RATE > 60.0 (>45); GLUCOSE, FASTING 102 MG/DL (70-100); SODIUM LEVEL 136 MEQ/L (136-145); TOTAL PROTEIN 7.9 GM/DL (6.4-8.2)
[2020-04-25] MEDS: ACETAMINOPHEN TAB 650MG DOSE (2X325MG) PO PRN (10:58)
[2020-04-25] MEDS ORDERED: POTASSIUM CHLORIDE 10 MEQ SR TABLET PO ONE (11:00)
--- NOTE | 2020-04-25 13:47 | IPNPDOC ---
Date Seen The patient was seen on 04/25/20. Progress Note SUBJECTIVE: Patient was seen and examined at bedside. Confused, disoriented to time and place, but oriented to person. Denies pain, fevers, chills. No acute events overnight. Afebrile. OBJECTIVE PHYSICAL EXAMINATION: VITAL SIGNS: Please see below. General: comfortable HEENT: PERRLA, EOMI, sclerae clear Neck: supple, normal ROM, no JVD Resp: lungs CTAB, no wheeze, no rales, no crackles CVS: RRR, normal S1, S2, blowing systolic murmur Abdo: soft, no masses, no hepatosplenomegaly, BS+, no rebound tenderness Extremities: no edema, pulses 2+ MSK: no joint deformities, normal ROM Neuro: unable to move both legs, left arm. contractures. minimal movement of R arm/hand, can grasp towel. contracted. Skin: examined back, sacrum. Barrier ointment. No ulceration noted. No skin breakdown on lower back. Psych: calm, AAO x 0-1 LABORATORY DATA, IMAGING STUDIES, MICROBIOLOGY: Please see below. Echocardiogram: ordered, pending. DVT prophylaxis ordered?: Y, lovenox ASSESSMENT: 65 yo F with a hx of advanced MS (bed bound, tetraplegic), nephrolithiasis, recurrent UTIs (hx of VRE), was brought from [place] in [place] after she developed AMS with confusion, hallucinations. Admitted for workup of acute encephalopathy likely secondary to infectious process. . PLAN: 1. Leukocytosis - WBC trending down 15.7-> 12.9 --> 8.6 - Blood culture from 04/18/20 MRSA+ (1 bottle) at [facility] - started on linezolid at [facility] on 04/20/20, discharged with 10 days course - repeat BCx, UA, althoght I suspect little diagnostic yield at this stage. - UCX - no growth - prelim BCx no growth - resume IV linezolid - ordered TTE, examine for vegetations - IVF 2. Encephalopathy - likely 2/2 infectious process - continue IV antibiotics 3. Hypothyroidism - THS, FT4 elevated - increase home med synthroid to 125 mcg/day - PCP f/u 4. Dysphagia - ANIMAL SKINNER eval: mechanical soft diet, regular/thin liquids - PEG tube not indicated at this time 5. Hypokalemia - K 4.0. 6. MS - chronic, to f/u with neurologist in outpatient setting - tetraplegia - frequent turning 7. Nephrolithiasis - hx of stents in past - reviewed renal US - L kidney mild hydronephrosis, no stones - R kidney, no hydronephrosis, 2 stones (10x10 mm, 7x9 mm) - Cr remains wnl, if rising, consider urology consult DVT ppx: lovenox Dispo: NH on DC VS, I&O, 24H, Fishbone Vital Signs/I&O Vital Signs Date Time Temp Pulse Resp B/P (MAP) Pulse Ox O2 Delivery O2 Flow Rate FiO2 04/25/20 06:00 98.8 80 20 119/70 (86) 99 Room Air I&O- Last 24 Hours up to 6 AM 04/25/20 05:59 Intake Total 2320 ml Output Total 1450 ml Balance 870 ml Laboratory Data 24H LABS Laboratory Tests 2 04/25/20 07:46: Immature Granulocyte % (Auto) 0.2, Neutrophils (%) (Auto) 63.4, Lymphocytes (%) (Auto) 21.5L, Monocytes (%) (Auto) 7.6H, Eosinophils (%) (Auto) 6.8H, Basophils (%) (Auto) 0.5, Neutrophils # (Auto) 5.5, Lymphocytes # (Auto) 1.9, Monocytes # (Auto) 0.7, Eosinophils # (Auto) 0.6H, Basophils # (Auto) 0.0, Nucleated Red Blood Cells % (auto) 0.0, Anion Gap 8, Glomerular Filtration Rate > 60.0, Calc ium Level 8.8, Magnesium Level 2.0, Total Bilirubin 0.6, Aspartate Amino Transf (AST/SGOT) 13, Alanine Aminotransferase (ALT/SGPT) 11L, Alkaline Phosphatase 63, Total Protein 7.9, Albumin 2.9L, Albumin/Globulin Ratio 0.6L CBC/BMP Laboratory Tests 04/25/20 07:46 Microbiology Microbiology 04/23/20 Urine Culture - Final, Complete 04/23/20 Blood Culture - Preliminary, Resulted No growth after 24 hours . All specim... 04/23/20 Blood Culture - Preliminary, Resulted No growth after 24 hours . All specim... ALAN KEITH MD Apr 25, 2020 13:47
[2020-04-25 14:00] VITALS: BP 137/84
[2020-04-25] MEDS: SENNA 8.6 MG TAB (SENOKOT) PO SCH (21:00)
[2020-04-25] MEDS: BISACODYL 5 MG TAB PO SCH (21:00)
[2020-04-25] MEDS: ENOXAPARIN 40MG/0.4ML SYRINGE (J1650 PER 10MG) SC SCH (21:24)
[2020-04-25 22:00] VITALS: BP 119/70
[2020-04-26] MEDS: D5W 1,000 ML IV SCH ×2 (00:34→10:16)
[2020-04-26 06:00] VITALS: BP 137/84
[2020-04-26] MEDS: LEVOTHYROXINE 125MCG TABLET (0.125MG) PO SCH (06:10)
[2020-04-26 07:52] LABS: BASO # 0.1 10^3/uL (0.0-0.2); BASO % 0.7 % (0.0-1.0); EOS # 0.6 10^3/uL (0.0-0.5); EOS % 5.4 % (0.0-3.0); HEMATOCRIT 41.1 % (36.0-47.0); HEMOGLOBIN 12.3 g/dl (12.0-15.5); LYMPH # 2.7 10^3/uL (1.5-5.0); LYMPH % 24.6 % (24.0-44.0); MEAN CORPUSCULAR HEMOGLOBIN 25.3 pg (27.0-33.0); MEAN CORPUSCULAR HGB CONC 29.9 g/dl (32.0-36.5); MEAN CORPUSCULAR VOLUME 84.4 fl (80.0-96.0); MONO # 0.6 10^3/uL (0.0-0.8); MONO % 5.8 % (0.0-5.0); NEUTROPHILS # 6.9 10^3/uL (1.5-8.5); NEUTROPHILS % 63.1 % (36.0-66.0); PLATELET COUNT, AUTOMATED 318 10^3/uL (150-450); RED BLOOD COUNT 4.87 10^6/uL (4.00-5.40); WHITE BLOOD COUNT 10.9 10^3/uL (4.0-10.0)
[2020-04-26 08:23] LABS: ALBUMIN 2.8 GM/DL (3.2-5.2); ALT/SGPT 10 U/L (12-78); BILIRUBIN,TOTAL 0.4 MG/DL (0.2-1.0); BLOOD UREA NITROGEN 5 MG/DL (7-18); CALCIUM LEVEL 8.5 MG/DL (8.8-10.2); CARBON DIOXIDE LEVEL 25 MEQ/L (21-32); CHLORIDE LEVEL 104 MEQ/L (98-107); GLOMERULAR FILTRATION RATE > 60.0 (>45); GLUCOSE, FASTING 109 MG/DL (70-100); MAGNESIUM LEVEL 1.9 MG/DL (1.8-2.4); POTASSIUM SERUM 3.8 MEQ/L (3.5-5.1); SODIUM LEVEL 136 MEQ/L (136-145)
[2020-04-26] MEDS: LINEZOLID 600 MG in IV 1 EA IV SCH ×2 (10:16→20:59)
[2020-04-26] MEDS: oxyBUTYnin *DITROPAN XL* 5 MG TABCR PO SCH (10:17)
[2020-04-26] MEDS: BACLOFEN 10 MG TAB PO SCH ×4 (10:17→20:59)
[2020-04-26] MEDS: DOCUSATE SODIUM 100 MG CAP PO SCH ×2 (10:17→20:59)
--- NOTE | 2020-04-26 10:58 | IPNPDOC ---
Date Seen The patient was seen on 04/26/20. Progress Note SUBJECTIVE: Patient was seen and examined at bedside. Confused, disoriented to time and place, but oriented to person. Denies pain, fevers, chills. No acute events overnight. Afebrile. OBJECTIVE PHYSICAL EXAMINATION: VITAL SIGNS: Please see below. General: comfortable HEENT: PERRLA, EOMI, sclerae clear Neck: supple, normal ROM, no JVD Resp: lungs CTAB, no wheeze, no rales, no crackles CVS: RRR, normal S1, S2, blowing systolic murmur Abdo: soft, no masses, no hepatosplenomegaly, BS+, no rebound tenderness Extremities: no edema, pulses 2+ MSK: no joint deformities, normal ROM Neuro: unable to move both legs, left arm. contractures. minimal movement of R arm/hand, can grasp towel. contracted. Skin: examined back, sacrum. Barrier ointment. No ulceration noted. No skin breakdown on lower back. Psych: calm, AAO x 0-1 LABORATORY DATA, IMAGING STUDIES, MICROBIOLOGY: Please see below. Echocardiogram: ordered, pending. DVT prophylaxis ordered?: Y, lovenox ASSESSMENT: 65 yo F with a hx of advanced MS (bed bound, tetraplegic), nephrolithiasis, recurrent UTIs (hx of VRE), was brought from [place] in [place] after she developed AMS with confusion, hallucinations. Admitted for workup of acute encephalopathy likely secondary to infectious process. . PLAN: 1. Leukocytosis - WBC trending down 15.7-> 12.9 --> 8.6 - Blood culture from 04/18/20 MRSA+ (1 bottle) at [facility] - Urine cx from 04/20/20 - positive for enteroccocus sens to linezolid - started on linezolid at [facility] on 04/20/20, discharged with 10 days course - repeat BCx, UA, althoght I suspect little diagnostic yield at this stage. - UCX - no growth - prelim BCx no growth - resume IV linezolid - TTE negative for vegetations 2. Encephalopathy - likely 2/2 infectious process - continue IV antibiotics 3. Hypothyroidism - THS, FT4 elevated - increase home med synthroid to 125 mcg/day - PCP f/u 4. Dysphagia - MEDICAL DOCTOR MD/MEDICAL DIRECTOR eval: mechanical soft diet, regular/thin liquids - PEG tube not indicated at this time 5. Hypokalemia - K 4.0. 6. MS - chronic, to f/u with neurologist in outpatient setting - tetraplegia - frequent turning 7. Nephrolithiasis - hx of stents in past - reviewed renal US - L kidney mild hydronephrosis, no stones - R kidney, no hydronephrosis, 2 stones (10x10 mm, 7x9 mm) - Cr remains wnl - discussed with Dr. Adame(urology), refer patient to clinic within 1 week, for eval of stones, will consider lithotripsy to assist passage, may be contributing to recurrent UTI DVT ppx: lovenox Dispo: NH on DC VS, I&O, 24H, Fishbone Vital Signs/I&O Vital Signs Date Time Temp Pulse Resp B/P (MAP) Pulse Ox O2 Delivery O2 Flow Rate FiO2 04/26/20 06:00 98.2 85 16 137/84 (101) 96 Room Air I&O- Last 24 Hours up to 6 AM 04/26/20 06:00 Intake Total 1600 ml Output Total 1300 ml Balance 300 ml Laboratory Data 24H LABS Laboratory Tests 2 04/26/20 07:32: Immature Granulocyte % (Auto) 0.4, Neutrophils (%) (Auto) 63.1, Lymphocytes (%) (Auto) 24.6, Monocytes (%) (Auto) 5.8H, Eosinophils (%) (Auto) 5.4H, Basophils (%) (Auto) 0.7, Neutrophils # (Auto) 6.9, Lymphocytes # (Auto) 2.7, Monocytes # (Auto) 0.6, Eosinophils # (Auto) 0.6H, Basophils # (Auto) 0.1, Nucleated Red Blood Cells % (auto) 0.0, Anion Gap 7L, Glomerular Filtration Rate > 60.0, Calci um Level 8.5L, Magnesium Level 1.9, Total Bilirubin 0.4, Aspartate Amino Transf (AST/SGOT) 10, Alanine Aminotransferase (ALT/SGPT) 10L, Alkaline Phosphatase 63, Total Protein 7.0, Albumin 2.8L, Albumin/Globulin Ratio 0.7L CBC/BMP Laboratory Tests 04/26/20 07:32 Microbiology Microbiology 04/23/20 Urine Culture - Final, Complete 04/23/20 Blood Culture - Preliminary, Resulted No Growth after 48 hours. All Specime... 04/23/20 Blood Culture - Preliminary, Resulted No Growth after 48 hours. All Specime... ALAN KEITH MD Apr 26, 2020 10:58
--- NOTE | 2020-04-26 11:18 | ECGEPIP ---
[facility] - ED Test Date: 2020-04-23 Pat Name: GRAEME JENSEN Department: Room: - Gender: Female Fly Raiser Lockstitch: kk : [id number] Requested By: TEO Silva Order Number: [id number] Reading MD: Naldo Palomino Measurements Intervals [place] Rate: 87 P: 26 AL: 141 QRS: -4 QRSD: 139 T: 90 QT: 420 QTc: 506 Interpretive Statements SINUS RHYTHM LEFT ATRIAL ENLARGEMENT LEFT BUNDLE BRANCH BLOCK NO PRIORS FOR COMPARISON Electronically Signed on 04-26-2020 11:18:44 EDT by Naldo Palomino
[2020-04-26 14:00] VITALS: BP 150/98
[2020-04-26] MEDS: BISACODYL 5 MG TAB PO SCH (20:54)
[2020-04-26] MEDS: SENNA 8.6 MG TAB (SENOKOT) PO SCH (20:54)
[2020-04-26] MEDS: ENOXAPARIN 40MG/0.4ML SYRINGE (J1650 PER 10MG) SC SCH (20:59)
[2020-04-26] MEDS: ACETAMINOPHEN 325 MG TAB PO PRN (21:00)
[2020-04-26 22:00] VITALS: BP 139/94
[2020-04-27] MEDS: D5W 1,000 ML IV SCH ×3 (02:50→22:11)
[2020-04-27 06:00] VITALS: BP 119/81
[2020-04-27] MEDS: LEVOTHYROXINE 125MCG TABLET (0.125MG) PO SCH (06:07)
--- NOTE | 2020-04-27 07:42 | IPNPDOC ---
Date Seen The patient was seen on 04/27/20. Progress Note SUBJECTIVE: Patient was seen and examined at bedside. Confused, disoriented to time and place, but oriented to person. Denies pain, fevers, chills. No acute events overnight. Afebrile. OBJECTIVE PHYSICAL EXAMINATION: VITAL SIGNS: Please see below. General: comfortable HEENT: PERRLA, EOMI, sclerae clear Neck: supple, normal ROM, no JVD Resp: lungs CTAB, no wheeze, no rales, no crackles CVS: RRR, normal S1, S2, blowing systolic murmur Abdo: soft, no masses, no hepatosplenomegaly, BS+, no rebound tenderness Extremities: no edema, pulses 2+ MSK: no joint deformities, normal ROM Neuro: unable to move both legs, left arm. contractures. minimal movement of R arm/hand, can grasp towel. contracted. Skin: examined back, sacrum. Barrier ointment. No ulceration noted. No skin breakdown on lower back. Psych: calm, AAO x 0-1 LABORATORY DATA, IMAGING STUDIES, MICROBIOLOGY: Please see below. Echocardiogram: ordered, pending. DVT prophylaxis ordered?: Y, lovenox ASSESSMENT: 65 yo F with a hx of advanced MS (bed bound, tetraplegic), nephrolithiasis, recurrent UTIs (hx of VRE), was brought from [place] in [place] after she developed AMS with confusion, hallucinations. Admitted for workup of acute encephalopathy likely secondary to infectious process. . PLAN: 1. Leukocytosis - WBC trending down 15.7-> 12.9 --> 8.6 - Blood culture from 04/18/20 MRSA+ (1 bottle) at [facility] - Urine cx from 04/20/20 - positive for enteroccocus sens to linezolid - started on linezolid at [facility] on 04/20/20, discharged with 10 days course - repeat BCx, UA, althoght I suspect little diagnostic yield at this stage. - UCX - no growth - prelim BCx no growth - resume IV linezolid - TTE negative for vegetations 2. Encephalopathy - likely 2/2 infectious process - continue IV antibiotics 3. Hypothyroidism - THS, FT4 elevated - increase home med synthroid to 125 mcg/day - PCP f/u 4. Dysphagia - PADDER eval: mechanical soft diet, regular/thin liquids - PEG tube not indicated at this time 5. Hypokalemia - K 4.0. 6. MS - chronic, to f/u with neurologist in outpatient setting - tetraplegia - frequent turning 7. Nephrolithiasis - hx of stents in past - reviewed renal US - L kidney mild hydronephrosis, no stones - R kidney, no hydronephrosis, 2 stones (10x10 mm, 7x9 mm) - Cr remains wnl - discussed with Dr. Adame(urology), refer patient to clinic within 1 week, for eval of stones, will consider lithotripsy to assist passage, may be contributing to recurrent UTI DVT ppx: lovenox Dispo: NH on DC VS, I&O, 24H, Fishbone Vital Signs/I&O Vital Signs Date Time Temp Pulse Resp B/P (MAP) Pulse Ox O2 Delivery O2 Flow Rate FiO2 04/27/20 06:00 97.3 86 18 119/81 (94) 98 Room Air I&O- Last 24 Hours up to 6 AM 04/27/20 05:59 Intake Total 2200 ml Balance 2200 ml Laboratory Data Microbiology Microbiology 04/23/20 Urine Culture - Final, Complete 04/23/20 Blood Culture - Preliminary, Resulted No Growth after 72 hours. All specime... 04/23/20 Blood Culture - Preliminary, Resulted No Growth after 72 hours. All specime... ALAN KEITH MD Apr 27, 2020 07:42
[2020-04-27] MEDS: LINEZOLID 600 MG in IV 1 EA IV SCH ×2 (08:44→20:38)
[2020-04-27] MEDS: DOCUSATE SODIUM 100 MG CAP PO SCH ×2 (08:44→20:37)
[2020-04-27] MEDS: BACLOFEN 10 MG TAB PO SCH ×4 (08:44→20:37)
[2020-04-27] MEDS: oxyBUTYnin *DITROPAN XL* 5 MG TABCR PO SCH (08:44)
[2020-04-27 10:52] LABS: BASO # 0.1 10^3/uL (0.0-0.2); BASO % 0.7 % (0.0-1.0); EOS # 0.6 10^3/uL (0.0-0.5); EOS % 6.1 % (0.0-3.0); HEMATOCRIT 42.3 % (36.0-47.0); HEMOGLOBIN 12.8 g/dl (12.0-15.5); LYMPH # 2.7 10^3/uL (1.5-5.0); LYMPH % 28.3 % (24.0-44.0); MEAN CORPUSCULAR HEMOGLOBIN 25.3 pg (27.0-33.0); MEAN CORPUSCULAR HGB CONC 30.3 g/dl (32.0-36.5); MEAN CORPUSCULAR VOLUME 83.8 fl (80.0-96.0); MONO # 0.7 10^3/uL (0.0-0.8); MONO % 7.4 % (0.0-5.0); NEUTROPHILS # 5.4 10^3/uL (1.5-8.5); NEUTROPHILS % 57.1 % (36.0-66.0); PLATELET COUNT, AUTOMATED 339 10^3/uL (150-450); RED BLOOD COUNT 5.05 10^6/uL (4.00-5.40); WHITE BLOOD COUNT 9.4 10^3/uL (4.0-10.0)
[2020-04-27 11:15] LABS: ALBUMIN 2.7 GM/DL (3.2-5.2); ALT/SGPT 10 U/L (12-78); BILIRUBIN,TOTAL 0.3 MG/DL (0.2-1.0); BLOOD UREA NITROGEN 6 MG/DL (7-18); CALCIUM LEVEL 8.8 MG/DL (8.8-10.2); CARBON DIOXIDE LEVEL 27 MEQ/L (21-32); CHLORIDE LEVEL 101 MEQ/L (98-107); CREATININE FOR GFR 0.61 MG/DL (0.55-1.30); GLOMERULAR FILTRATION RATE > 60.0 (>45); GLUCOSE, FASTING 116 MG/DL (70-100); MAGNESIUM LEVEL 2.1 MG/DL (1.8-2.4); POTASSIUM SERUM 3.7 MEQ/L (3.5-5.1); SODIUM LEVEL 134 MEQ/L (136-145); TOTAL PROTEIN 7.1 GM/DL (6.4-8.2)
[2020-04-27 14:00] VITALS: BP 119/79
[2020-04-27] MEDS: BISACODYL 5 MG TAB PO SCH (20:37)
[2020-04-27] MEDS: SENNA 8.6 MG TAB (SENOKOT) PO SCH (20:37)
[2020-04-27] MEDS: ENOXAPARIN 40MG/0.4ML SYRINGE (J1650 PER 10MG) SC SCH (20:38)
[2020-04-27 22:00] VITALS: BP 119/83
[2020-04-28 05:37] LABS: BASO # 0.1 10^3/uL (0.0-0.2); BASO % 0.9 % (0.0-1.0); EOS # 0.8 10^3/uL (0.0-0.5); EOS % 5.1 % (0.0-3.0); HEMATOCRIT 42.8 % (36.0-47.0); HEMOGLOBIN 13.1 g/dl (12.0-15.5); LYMPH # 2.9 10^3/uL (1.5-5.0); MEAN CORPUSCULAR HEMOGLOBIN 25.8 pg (27.0-33.0); MEAN CORPUSCULAR HGB CONC 30.6 g/dl (32.0-36.5); MEAN CORPUSCULAR VOLUME 84.4 fl (80.0-96.0); MONO # 0.9 10^3/uL (0.0-0.8); MONO % 5.7 % (0.0-5.0); NEUTROPHILS # 10.3 10^3/uL (1.5-8.5); NEUTROPHILS % 68.8 % (36.0-66.0); PLATELET COUNT, AUTOMATED 357 10^3/uL (150-450); RED BLOOD COUNT 5.07 10^6/uL (4.00-5.40)
[2020-04-28 06:00] LABS: ALBUMIN 2.7 GM/DL (3.2-5.2); ALT/SGPT 9 U/L (12-78); BILIRUBIN,TOTAL 0.5 MG/DL (0.2-1.0); BLOOD UREA NITROGEN 6 MG/DL (7-18); CALCIUM LEVEL 8.7 MG/DL (8.8-10.2); CARBON DIOXIDE LEVEL 24 MEQ/L (21-32); CHLORIDE LEVEL 102 MEQ/L (98-107); CREATININE FOR GFR 0.77 MG/DL (0.55-1.30); GLOMERULAR FILTRATION RATE > 60.0 (>45); GLUCOSE, FASTING 112 MG/DL (70-100); MAGNESIUM LEVEL 1.9 MG/DL (1.8-2.4); POTASSIUM SERUM 3.9 MEQ/L (3.5-5.1); SODIUM LEVEL 137 MEQ/L (136-145)
[2020-04-28] MEDS: LEVOTHYROXINE 125MCG TABLET (0.125MG) PO SCH (06:07)
[2020-04-28] MEDS: ACETAMINOPHEN TAB 650MG DOSE (2X325MG) PO PRN (06:33)
[2020-04-28] MEDS: D5W 1,000 ML IV SCH (07:04)
--- NOTE | 2020-04-28 07:48 | ECHO ---
DATE OF PROCEDURE: 04/24/2020 Age: Gender: Female Height: 160 cm Weight: 56 kg REFERRING PHYSICIAN: Gilberto Patel MD INDICATION: Sepsis. MEASUREMENTS: 2D Measurements: Intraventricular septum 1.13 cm Posterior wall 0.79 cm Proximal ascending aorta 2.8 cm Left ventricle diastole 4.1 cm Left atrium 2.3 cm Doppler Measurements: No aortic regurgitation No aortic stenosis Aortic valve velocity 135 cm/s LVOT velocity 113 cm/s LVOT VTI 20.3 cm Mild mitral regurgitation No mitral stenosis Mitral E velocity 56.3 cm/s Mitral A velocity 80.0 cm/s Mitral deceleration time 280 msec Trace tricuspid regurgitation No pulmonic regurgitation MITRAL ANNULAR TISSUE DOPPLER E prime septal 6.4 cm/s, E prime lateral 5.1 cm/s DESCRIPTION: Rhythm was sinus with a left bundle branch block type morphology. This was a moderately technically difficult echocardiogram. This was a 2D, M- mode, color flow Doppler, and pulsed wave Doppler examination including mitral annular tissue Doppler. CONCLUSIONS: 1. Normal left ventricle internal dimensions and wall thickness. Normal regional LV wall motion and wall thickening. Normal LV systolic function. LVEF 60% by visual estimate. Grade 1 LV diastolic dysfunction. 2. Moderately technically difficult echocardiogram. 3. Mild mitral annular calcification. Mild mitral regurgitation. 4. Very mild aortic valve sclerosis of a 3-cuspid aortic valve. No aortic regurgitation. 5. Otherwise normal appearing echocardiogram Doppler. No pericardial effusion. MTDD
[2020-04-28] MEDS: oxyBUTYnin *DITROPAN XL* 5 MG TABCR PO SCH (09:00)
--- NOTE | 2020-04-28 09:26 | REPVR ---
PROCEDURE INFORMATION: Exam: US Duplex Lower Extremity Veins, Bilateral Exam date and time: 04/28/2020 9:19 AM Age: 64 years old Clinical indication: Pain; Leg, lower; Bilateral; Additional info: R/p dvt TECHNIQUE: Imaging protocol: Real-time duplex ultrasound of the extremities with 2-D [place] scale, color Doppler flow and spectral waveform analysis with image documentation. Complete exam focused on the bilateral lower extremity veins. COMPARISON: No relevant prior studies available. FINDINGS: Right deep veins: Unremarkable. The common femoral, femoral and popliteal veins are patent without thrombus. Normal Doppler waveforms. Normal compressibility and/or augmentation response. Right superficial veins: Saphenofemoral junction is patent without thrombus. Left deep veins: Unremarkable. The common femoral, femoral and popliteal veins are patent without thrombus. Normal Doppler waveforms. Normal compressibility and/or augmentation response. Left superficial veins: Saphenofemoral junction is patent without thrombus. Soft tissues: Unremarkable. IMPRESSION: No evidence of deep vein thrombosis in the lower extremities bilaterally. Electronically signed by: Sergio Ku On 04/28/2020 09:26:02 AM
[2020-04-28] MEDS ORDERED: ISOVUE-370 76% 100ML VIAL As Ordered ONE (09:42)
--- NOTE | 2020-04-28 10:29 | IPNPDOC ---
Date Seen The patient was seen on 04/28/20. Progress Note SUBJECTIVE: Patient was seen and examined at bedside. Disoriented to time and place, but oriented to person. Denies pain, fevers, chills. Tachycardic overnight. Denies chest pain or shortness of breath. No acute events overnight. Afebrile. Noted to have WBC elevation to 15 this morning. OBJECTIVE PHYSICAL EXAMINATION: VITAL SIGNS: Please see below. General: comfortable HEENT: PERRLA, EOMI, sclerae clear Neck: supple, normal ROM, no JVD Resp: lungs CTAB, no wheeze, no rales, no crackles CVS: RRR, normal S1, S2, blowing systolic murmur Abdo: soft, no masses, no hepatosplenomegaly, BS+, no rebound tenderness Extremities: no edema, pulses 2+ MSK: no joint deformities, normal ROM Neuro: unable to move both legs, left arm. contractures. minimal movement of R arm/hand, can grasp towel. contracted. Skin: examined back, sacrum. Barrier ointment. No ulceration noted. No skin breakdown on lower back. Psych: calm, AAO x 0-1 LABORATORY DATA, IMAGING STUDIES, MICROBIOLOGY: Please see below. Echocardiogram: ordered, pending. DVT prophylaxis ordered?: Y, lovenox ASSESSMENT: 65 yo F with a hx of advanced MS (bed bound, tetraplegic), nephrolithiasis, recurrent UTIs (hx of VRE), was brought from [place] in [place] after she developed AMS with confusion, hallucinations. Admitted for workup of acute encephalopathy likely secondary to infectious process. . PLAN: 1. Suspected bacteremia - Blood culture from 04/18/20 MRSA+ (1 bottle) at [facility] - Urine cx from 04/20/20 - positive for enteroccocus sens to linezolid - started on linezolid at [facility] on 04/20/20, discharged with 10 days course - UCX - no growth - prelim BCx no growth - TTE negative for vegetations - discussed with Dr. Marshall. Concern for VISA (vancomycin intermediate staphyloccocus) infection. - will see patient. 2. Encephalopathy - likely 2/2 infectious process 3. Hypothyroidism - THS, FT4 elevated - increase home med synthroid to 125 mcg/day - PCP f/u 4. Dysphagia - FINE ARTS INSTRUCTOR eval: mechanical soft diet, regular/thin liquids - PEG tube not indicated at this time 5. Hypokalemia - K 4.0. 6. MS - chronic, to f/u with neurologist in outpatient setting - tetraplegia - frequent turning 7. Nephrolithiasis - hx of stents in past - reviewed renal US - L kidney mild hydronephrosis, no stones - R kidney, no hydronephrosis, 2 stones (10x10 mm, 7x9 mm) - Cr remains wnl - discussed with Dr. Adame(urology), refer patient to clinic within 1 week, for eval of stones, will consider lithotripsy to assist passage, may be contributing to recurrent UTI 8. Tachycardia - D-dimer 850 - Wells score for PE 3 - hx prolonged immobilzation - obtain CTA/PE - venous BLE dupplex negative for DVT DVT ppx: lovenox Dispo: NH on DC VS, I&O, 24H, Fishbone Vital Signs/I&O Vital Signs Date Time Temp Pulse Resp B/P (MAP) Pulse Ox O2 Delivery O2 Flow Rate FiO2 04/27/20 22:00 98.6 118 18 119/83 (95) 96 Room Air I&O- Last 24 Hours up to 6 AM 04/28/20 06:00 Intake Total 1540 ml Output Total 100 ml Balance 1440 ml Laboratory Data 24H LABS Laboratory Tests 2 04/28/20 05:11: Immature Granulocyte % (Auto) 0.5, Neutrophils (%) (Auto) 68.8H, Lymphocytes (%) (Auto) 19.0L, Monocytes (%) (Auto) 5.7H, Eosinophils (%) (Auto) 5.1H, Basophils (%) (Auto) 0.9, Neutrophils # (Auto) 10.3H, Lymphocytes # (Auto) 2.9, Monocytes # (Auto) 0.9H, Eosinophils # (Auto) 0.8H, Basophils # (Auto) 0.1, Nucleated Red Blood Cells % (auto) 0.0, Anion Gap 11, Glomerular Filtration Rate > 60.0, Calcium Level 8.7L, Magnesium Level 1.9, Total Bilirubin 0.5#, Aspartate Amino Transf (AST/SGOT) 12, Alanine Aminotransferase (ALT/SGPT) 9L, Alkaline Phosphatase 76, Total Protein 7.0, Albumin 2.7L, Albumin/Globulin Ratio 0.6L 04/28/20 08:14: D-Dimer, Quantitative 850.32H CBC/BMP Laboratory Tests 04/28/20 05:11 Microbiology Microbiology 04/23/20 Urine Culture - Final, Complete 04/23/20 Blood Culture - Preliminary, Resulted No Growth after 72 hours. All specime... 04/23/20 Blood Culture - Preliminary, Resulted No Growth after 72 hours. All specime... ALAN KEITH MD Apr 28, 2020 10:29
--- NOTE | 2020-04-28 10:53 | REPVR ---
PROCEDURE INFORMATION: Exam: CT Angiography Chest With Contrast Exam date and time: 04/28/2020 9:51 AM Age: 64 years old Clinical indication: Chest pain; Additional info: R/O pe TECHNIQUE: Imaging protocol: Computed tomographic angiography of the chest with intravenous contrast. 3D rendering (Not supervised by radiologist): MIP and/or 3D reconstructed images were created by the technologist. Radiation optimization: All CT scans at this facility use at least one of these dose optimization techniques: automated exposure control; mA and/or kV adjustment per patient size (includes targeted exams where dose is matched to clinical indication); or iterative reconstruction. Contrast material: [id number]; Contrast volume: 75 ml; Contrast route: INTRAVENOUS (IV); COMPARISON: CT CHEST W/O CONTRAST - OUTSIDE PRIOR 02/04/2015 9:59 AM FINDINGS: Pulmonary arteries: No CT evidence of acute pulmonary embolism. Aorta: No CT evidence of acute thoracic aortic dissection, thoracic aneurysm or acute intramural thoracic aortic hematoma. Lungs: Mild bilateral centrilobular emphysema is present. Pleural space: Unremarkable. No pneumothorax. No pleural effusion. Heart: The heart size is normal. Minimal coronary artery calcification is present. Lymph nodes: Unremarkable. No enlarged lymph nodes. Liver: Multiple hypodense masses are present in the left and right lobes of the liver with the largest measuring 2.4 cm in AP diameter on image 142 of series 401. These have benign features with well-defined castellanos and internal homogeneous low attenuation density of less than 20 Hounsfield units and are likely small simple cysts or hemangiomas. Kidneys and ureters: There is a questionable metallic coil versus calcification less likely present within the left kidney on image 168 of series 401. Bones/joints: A chronic anterior wedge compression fracture of the T12 vertebral body is present, with anterior height loss less than 25%. A questionable old fracture deformity is seen in the proximal right humerus. Soft tissues: Unremarkable. IMPRESSION: 1. No CT evidence of acute pulmonary embolism. 2. No CT evidence of acute thoracic aortic dissection, thoracic aneurysm or acute intramural thoracic aortic hematoma. 3. The heart size is normal. Minimal coronary artery calcification is present. 4. Mild bilateral centrilobular emphysema is present. 5. A chronic anterior wedge compression fracture of the T12 vertebral body is present, with anterior height loss less than 25%. 6. A questionable old fracture deformity is seen in the proximal right humerus. 7. Multiple hypodense masses are present in the left and right lobes of the liver with the largest measuring 2.4 cm in AP diameter on image 142 of series 401. These have benign features with well-defined castellanos and internal homogeneous low attenuation density of less than 20 Hounsfield units and are likely small simple cysts or hemangiomas. No further follow-up is recommended. Reference: Managing Incidental Findings on Abdominal CT: White Paper of the ACR Incidental Findings Committee Yovani Smith MD, et al. JACR, May 2010. 8. There is a questionable endovascular metallic coil versus calculus less likely present within the left kidney, on image 168 of series 401. Electronically signed by: Sergio Ku On 04/28/2020 10:53:07 AM
[2020-04-28] MEDS: DOCUSATE SODIUM 100 MG CAP PO SCH ×2 (11:04→21:48)
[2020-04-28] MEDS: BACLOFEN 10 MG TAB PO SCH ×4 (11:04→21:49)
[2020-04-28] MEDS: LINEZOLID 600 MG in IV 1 EA IV SCH (11:05)
[2020-04-28 14:00] VITALS: BP 106/60
[2020-04-28] MEDS: SENNA 8.6 MG TAB (SENOKOT) PO SCH ×2 (21:00→21:48)
[2020-04-28] MEDS: BISACODYL 5 MG TAB PO SCH ×2 (21:00→21:49)
[2020-04-28] MEDS: ENOXAPARIN 40MG/0.4ML SYRINGE (J1650 PER 10MG) SC SCH (21:49)
[2020-04-28 22:00] VITALS: BP 104/67
[2020-04-29] MEDS: D5W 1,000 ML IV SCH ×2 (05:19→12:19)
[2020-04-29] MEDS: LEVOTHYROXINE 125MCG TABLET (0.125MG) PO SCH (05:19)
[2020-04-29 06:00] VITALS: BP 106/62
[2020-04-29 06:12] LABS: BASO # 0.1 10^3/uL (0.0-0.2); BASO % 0.8 % (0.0-1.0); EOS # 0.9 10^3/uL (0.0-0.5); EOS % 7.8 % (0.0-3.0); HEMATOCRIT 41.9 % (36.0-47.0); HEMOGLOBIN 12.9 g/dl (12.0-15.5); LYMPH # 2.7 10^3/uL (1.5-5.0); LYMPH % 23.2 % (24.0-44.0); MEAN CORPUSCULAR HEMOGLOBIN 25.6 pg (27.0-33.0); MEAN CORPUSCULAR HGB CONC 30.8 g/dl (32.0-36.5); MEAN CORPUSCULAR VOLUME 83.3 fl (80.0-96.0); MONO # 0.8 10^3/uL (0.0-0.8); MONO % 6.5 % (0.0-5.0); NEUTROPHILS # 7.2 10^3/uL (1.5-8.5); NEUTROPHILS % 61.4 % (36.0-66.0); PLATELET COUNT, AUTOMATED 312 10^3/uL (150-450); RED BLOOD COUNT 5.03 10^6/uL (4.00-5.40); WHITE BLOOD COUNT 11.8 10^3/uL (4.0-10.0)
[2020-04-29 06:32] LABS: ERYTHROCYTE SEDIMENTATION RATE 27 mm/hr (0-30)
[2020-04-29 07:56] LABS: ALBUMIN 2.6 GM/DL (3.2-5.2); ALT/SGPT 10 U/L (12-78); BILIRUBIN,TOTAL 0.4 MG/DL (0.2-1.0); BLOOD UREA NITROGEN 8 MG/DL (7-18); C REACTIVE PROTEIN QUANTITATIV 2.02 MG/DL (0.00-0.30); CALCIUM LEVEL 8.7 MG/DL (8.8-10.2); CARBON DIOXIDE LEVEL 27 MEQ/L (21-32); CHLORIDE LEVEL 102 MEQ/L (98-107); CREATININE FOR GFR 0.76 MG/DL (0.55-1.30); GLOMERULAR FILTRATION RATE > 60.0 (>45); GLUCOSE, FASTING 104 MG/DL (70-100); MAGNESIUM LEVEL 2.3 MG/DL (1.8-2.4); POTASSIUM SERUM 3.5 MEQ/L (3.5-5.1); SODIUM LEVEL 136 MEQ/L (136-145); TOTAL PROTEIN 7.4 GM/DL (6.4-8.2)
[2020-04-29] MEDS: DOCUSATE SODIUM 100 MG CAP PO SCH ×2 (09:00→21:00)
[2020-04-29] MEDS: BACLOFEN 10 MG TAB PO SCH ×4 (09:10→22:20)
[2020-04-29] MEDS: oxyBUTYnin *DITROPAN XL* 5 MG TABCR PO SCH (09:10)
[2020-04-29] MEDS: ACETAMINOPHEN 325 MG TAB PO PRN (12:28)
[2020-04-29 14:00] VITALS: BP 96/64
[2020-04-29] MEDS ORDERED: LEVO125T4 PO (20:10)
--- NOTE | 2020-04-29 20:25 | IPNPDOC ---
Date Seen The patient was seen on 04/29/20. Progress Note SUBJECTIVE: WBC decreased, afebrile, all cx NG. Discussed case with Dr. Marshall. Keeping off all abx at this time. Echo: no concerning acute findings. Patient denies chest pain, fevers, chills, n/v/d, abdominal pain, lightheadedness. Remains tachycardic. OBJECTIVE: PHYSICAL EXAMINATION: VITAL SIGNS: Please see below. General: comfortable, in NAD resting in bed HEENT: PERRLA, EOMI, sclerae clear Neck: supple, no JVD Resp: lungs CTAB, no wheeze, no rales, no crackles CVS: RRR, normal S1, S2, blowing systolic murmur Abdo: soft, no masses, no hepatosplenomegaly, BS+, no rebound tenderness Extremities: contracted upper ext b/l- baseline. Thin, no edema, pulses 2+ MSK: joint deformities of the upper ext/hands, ROM not tested Neuro: AAOx2, unable to move both legs, left arm. minimal movement of R arm/hand, can grasp towel- all chronic findings, no new focal deficits Skin: Intact, no ulcers, erythema Psych: mood and affect appropriate LABORATORY DATA, IMAGING STUDIES, MICROBIOLOGY: Please see below. Echocardiogram: 1. Normal left ventricle internal dimensions and wall thickness. Normal regional LV wall motion and wall thickening. Normal LV systolic function. LVEF 60% by visual estimate. Grade 1 LV diastolic dysfunction. 2. Moderately technically difficult echocardiogram. 3. Mild mitral annular calcification. Mild mitral regurgitation. 4. Very mild aortic valve sclerosis of a 3-cuspid aortic valve. No aortic regurgitation. 5. Otherwise normal appearing echocardiogram Doppler. No pericardial effusion. CTA chest: neg for PE, see complete report US lower ext: neg for DVT ASSESSMENT: 65 yo F with a hx of advanced MS (bed bound, tetraplegic), nephrolithiasis, recurrent UTIs (hx of VRE) admitted to [facility] for acute encephalopathy likely secondary to infectious process, poss prior UTI. PLAN: 1. Suspected bacteremia possibly from recurrent UTI - Blood culture from 04/18/20 MRSA+ (1 bottle) at [facility], ? VISA (vancomycin intermediate staphyloccocus) infection. - Urine cx from 04/20/20 - positive for enteroccocus sens to linezolid. Later di scharged with 10 days course - UCX here- no growth - BCx- NGTD - inflammatory markers elevated;however, not dramatically - TTE negative for vegetations - At this time, there is no proof that the patient had VISA, a reportable bacteria to the state. Dr. Marshall will be looking further into this. For now; however, with all cultures and w/u neg, there is no indication to continue abx. Tachycardia is isolated with no other s/s of SIRS or sepsis. 2. Encephalopathy likely 2/2 to infectious process -Since resolved and patient is at believed baseline -No confirmation of bacteremia as mentioned above. 3. Hypothyroidism - THS, FT4 elevated - C/w increased dose of synthroid 125 mcg/day - PCP f/u 4. Dysphagia - PARA PROFESSIONAL eval: mechanical soft diet, regular/thin liquids - PEG tube not indicated at this time 5. Hypokalemia - K wnl, f/u in AM 6. MS - chronic, to f/u with neurologist in outpatient setting - tetraplegia - frequent turning 7. Nephrolithiasis - hx of stents in past - reviewed renal US - L kidney mild hydronephrosis, no stones - R kidney, no hydronephrosis, 2 stones (10x10 mm, 7x9 mm) - Cr remains wnl - discussed with Dr. Adame(urology), refer patient to clinic within 1 week, for eval of stones, will consider lithotripsy to assist passage, may be contributing to recurrent UTI 8. Tachycardia possibly baseline, poss anxiety? - D-dimer 850, CTA neg for PE - f/u with PCP 9. DVT ppx - lovenox Dispo: NH on DC VS, I&O, 24H, Fishbone Vital Signs/I&O Vital Signs Date Time Temp Pulse Resp B/P (MAP) Pulse Ox O2 Delivery O2 Flow Rate FiO2 04/29/20 14:00 97.6 117 16 96/64 (75) 97 Room Air I&O- Last 24 Hours up to 6 AM 04/29/20 06:00 Intake Total 2300 ml Output Total 0 ml Balance 2300 ml Laboratory Data 24H LABS Laboratory Tests 2 04/29/20 05:33: Anion Gap 7L, Glomerular Filtration Rate > 60.0, Calcium Level 8.7L, Magnesium Level 2.3, Total Bilirubin 0.4, Aspartate Amino Transf (AST/SGOT) 11, Alanine Aminotransferase (ALT/SGPT) 10L, Alkaline Phosphatase 75, C-Reactive Protein, Quantitative 2.02H, Total Protein 7.4, Albumin 2.6L, Albumin/Globulin Ratio 0.5L 04/29/20 05:34: Immature Granulocyte % (Auto) 0.3, Neutrophils (%) (Auto) 61.4, Lymphocytes (%) (Auto) 23.2L, Monocytes (%) (Auto) 6.5H, Eosinophils (%) (Auto) 7.8H, Basophils (%) (Auto) 0.8, Neutrophils # (Auto) 7.2, Lymphocytes # (Auto) 2.7, Monocytes # (Auto) 0.8, Eosinophils # (Auto) 0.9H, Basophils # (Auto) 0.1, Nucleated Red B lood Cells % (auto) 0.0, Erythrocyte Sedimentation Rate 27, Procalcitonin 0.09 04/29/20 16:20: Coronavirus (COVID-19)(PCR) NEGATIVE CBC/BMP Laboratory Tests 04/29/20 05:33 04/29/20 05:34 Microbiology Microbiology 04/23/20 Urine Culture - Final, Complete 04/23/20 Blood Culture - Final, Complete NO GROWTH AFTER 5 DAYS 04/23/20 Blood Culture - Final, Complete NO GROWTH AFTER 5 DAYS Current Medications Current Medications Medications (Trade) Dose Ordered Sig/Akua Route PRN Reason Start Time Stop Time Status Last Admin Dose Admin Acetaminophen (Tylenol Tab) 650 mg Q4H PRN PO PAIN OR FEVER 04/23/20 18:15 04/28/20 16:56 DC 04/28/20 06:33 Acetaminophen (Tylenol Tab) 650 mg Q6H PRN PO FEVER 04/23/20 20:00 04/29/20 12:28 Acetaminophen/ Hydrocodone Bitart ([place], Anexsia 5/325) 1 tab Q6HP PRN PO MILD/MODERATE PAIN (PS 1-7) 04/23/20 20:00 Baclofen (Lioresal) 10 mg QID PO 04/23/20 21:00 04/29/20 16:16 Bisacodyl (Dulcolax Tab) 5 mg QHS PO 04/23/20 21:00 04/24/20 22:35 Dextrose/Water 1,000 ml @ 80 mls/hr [id number] IV 04/23/20 18:11 04/29/20 12:19 Docusate Sodium (Colace) 100 mg BID PO 04/23/20 21:00 04/28/20 21:48 Enoxaparin Sodium (Lovenox) 40 mg DAILY@2100 SC 04/23/20 21:00 04/28/20 21:49 Guaifenesin (Robitussin) 10 ml Q4HP PRN PO CONGESTION 04/23/20 20:00 Home Med (Med Rec Complete!) ASDIRECTED XX 04/23/20 17:15 04/23/20 17:14 DC Levothyroxine Sodium (Synthroid) 112 mcg QAM@0600 PO 04/24/20 06:00 04/24/20 10:59 DC 04/24/20 06:26 Levothyroxine Sodium (Synthroid) 125 mcg QAM@0600 PO 04/25/20 06:00 04/29/20 05:19 Linezolid 600 mg/ IV Miscellaneous Supplies 300 ml @ 150 mls/hr Q12H IV 04/23/20 21:00 04/28/20 16:33 DC 04/28/20 11:05 Magnesium Hydroxide (Milk Of Magnesia) 30 ml DAILY PRN PO CONSTIPATION 04/23/20 18:15 Oxybutynin Chloride (Ditropan Xl) 5 mg DAILY PO 04/24/20 09:00 04/29/20 09:10 Senna (Senokot) 1 tab QHS PO 04/23/20 21:00 04/24/20 22:35 Allergies Coded Allergies: ciprofloxacin (Verified Allergy, Unknown, 04/20/20) Keila Tesfaye MD Apr 29, 2020 20:25
[2020-04-29] MEDS: BISACODYL 5 MG TAB PO SCH (21:00)
[2020-04-29] MEDS: SENNA 8.6 MG TAB (SENOKOT) PO SCH (21:00)
[2020-04-29 22:00] VITALS: BP 114/85
[2020-04-29] MEDS: ENOXAPARIN 40MG/0.4ML SYRINGE (J1650 PER 10MG) SC SCH (22:21)
[2020-04-30] MEDS: D5W 1,000 ML IV SCH (00:11)
[2020-04-30 06:00] VITALS: BP 119/76
[2020-04-30] MEDS: LEVOTHYROXINE 125MCG TABLET (0.125MG) PO SCH (06:15)
[2020-04-30 06:40] LABS: BASO # 0.1 10^3/uL (0.0-0.2); BASO % 0.7 % (0.0-1.0); EOS # 0.7 10^3/uL (0.0-0.5); EOS % 6.5 % (0.0-3.0); HEMATOCRIT 44.8 % (36.0-47.0); HEMOGLOBIN 13.7 g/dl (12.0-15.5); LYMPH # 2.4 10^3/uL (1.5-5.0); LYMPH % 21.4 % (24.0-44.0); MEAN CORPUSCULAR HEMOGLOBIN 25.7 pg (27.0-33.0); MEAN CORPUSCULAR HGB CONC 30.6 g/dl (32.0-36.5); MEAN CORPUSCULAR VOLUME 84.1 fl (80.0-96.0); MONO # 1.1 10^3/uL (0.0-0.8); MONO % 9.7 % (0.0-5.0); NEUTROPHILS # 6.8 10^3/uL (1.5-8.5); NEUTROPHILS % 61.2 % (36.0-66.0); PLATELET COUNT, AUTOMATED 243 10^3/uL (150-450); RED BLOOD COUNT 5.33 10^6/uL (4.00-5.40); WHITE BLOOD COUNT 11.1 10^3/uL (4.0-10.0)
[2020-04-30 06:58] LABS: ALBUMIN 2.7 GM/DL (3.2-5.2); ALT/SGPT 10 U/L (12-78); BILIRUBIN,TOTAL 0.4 MG/DL (0.2-1.0); BLOOD UREA NITROGEN 9 MG/DL (7-18); CALCIUM LEVEL 8.7 MG/DL (8.8-10.2); CARBON DIOXIDE LEVEL 26 MEQ/L (21-32); CHLORIDE LEVEL 106 MEQ/L (98-107); CREATININE FOR GFR 0.66 MG/DL (0.55-1.30); GLOMERULAR FILTRATION RATE > 60.0 (>45); GLUCOSE, FASTING 101 MG/DL (70-100); MAGNESIUM LEVEL 2.3 MG/DL (1.8-2.4); POTASSIUM SERUM 3.6 MEQ/L (3.5-5.1); SODIUM LEVEL 139 MEQ/L (136-145); TOTAL PROTEIN 7.5 GM/DL (6.4-8.2)
--- NOTE | 2020-04-30 14:08 | DS.PDOC ---
Discharge Summary General Date of Admission Apr 23, 2020 at 18:08 Date of Discharge 04/30/20 Attending Physician: Keila Tesfaye MD Discharge Summary HISTORY OF PRESENT ILLNESS: Patient is a 65 yo F with a hx of advanced MS (bed bound, tetraplegic), nephrolithiasis, recurrent UTIs (hx of VRE), was transferred from [place] in [place] after she developed AMS with confusion, hallucinations. Her sister is a bedside, and describes the patient stating that "wild dogs were eating my feet". Patient was admitted to [facility] on 04/18/20 with sepsis 2/2 UTI. She was empirically treated with ceftriaxone. Urine Cx available with patient chart from 04/18/20 - 1 bottle positive for MRSA sensitive to Levaquin, Gent, Linezolid. During that admission patient developed dysphagia, reduced PO intake and was transfered to [facility] for PEG placement on 04/20/20. Per chart review, patient was started on Linezolid for then suspected gram positive bacteremia. FLAG DECORATOR eval however did not indicate need for PEG, and patent was discharged to [place] with PO linezolid for 10 days. Patient returned with continue reduced PO intake, AMS with hallucination. WBC 15.5. Afebrile. THS 5.4. FT4 15.9. Trop 0.02. CKMB 6.97. K 2.7. LA 1.2. CXR showed no acute findings. Patient admitted for failure to thrive, dysphagia requiring FLAG DECORATOR workup and further workup of bacteremia. HOSPITAL COURSE: There was a high suspicion for suspected bacteremia possibly from recurrent UTI from outside facility. Blood culture from 04/18/20 MRSA+ (1 bottle) at [facility], ? VISA (vancomycin intermediate staphyloccocus) infection was also a concern. Urine cx from 04/20/20 - positive for enteroccocus sens to linezolid and she was later discharged with 10 days course. However, UCx and BCx at our facility were both negative. Inflammatory markers were elevated;however, not dramatically. TTE done here was negative for vegetations and a low suspicion as cause for possible infection. Encephalopathy was believed to be likely 2/2 to infectious process but this quickly resolved and patient is at believed baseline . At this time there is no documented proof that the patient had VISA, a reportable bacteria to the state. Dr. Marshall (infectious disease) will be looking further into this. For now; however, with all cultures and w/u neg, there is no indication to continue abx. Tachycardia is isolated with no other s/s of SIRS or sepsis. All other chronic issues remained stable this hospital stay. On 04/30/20 patient was discharged back to SNF and denied chest pain, shortness of breath, n/v/d, fevers, chills, abdominal pain. PAST MEDICAL HISTORY: MS Tetraplegia Hypothyroidism GERD Nephrolithiasis UTI (VRE) GERD Chronic anemia Depression Anxiety Osteoporosis Neurogenic bladder 2/2 MS PAST SURGICAL HISTORY: nephrostomy tubal ligation dental surgery SOCIAL HISTORY: Resides in [place]. Otherwise no smoking, no drinking etoh, no illicit drug use FAMILY HISTORY: hx of unspecified cancer in father No MS in family ALLERGIES: Please see below. DISCHARGE MEDICATIONS: Please see below. PHYSICAL EXAMINATION: VITAL SIGNS: Please see below. General: comfortable, in NAD resting in bed HEENT: PERRLA, EOMI, sclerae clear Neck: supple, no JVD Resp: lungs CTAB, no wheeze, no rales, no crackles CVS: RRR, normal S1, S2, blowing systolic murmur Abdo: soft, no masses, no hepatosplenomegaly, BS+, no rebound tenderness Extremities: contracted upper ext b/l- baseline. Thin, no edema, pulses 2+ MSK: joint deformities of the upper ext/hands, ROM not tested Neuro: AAOx2, unable to move both legs, left arm. minimal movement of R arm/hand, can grasp- all chronic findings, no new focal deficits Skin: Intact, no ulcers, erythema Psych: mood and affect appropriate LABORATORY DATA, IMAGING STUDIES, MICROBIOLOGY: Please see below. Echocardiogram: 1. Normal left ventricle internal dimensions and wall thickness. Normal regional LV wall motion and wall thickening. Normal LV systolic function. LVEF 60% by visual estimate. Grade 1 LV diastolic dysfunction. 2. Moderately technically difficult echocardiogram. 3. Mild mitral annular calcification. Mild mitral regurgitation. 4. Very mild aortic valve sclerosis of a 3-cuspid aortic valve. No aortic regurgitation. 5. Otherwise normal appearing echocardiogram Doppler. No pericardial effusion. CTA chest: neg for PE, see complete report US lower ext: neg for DVT ASSESSMENT: 65 yo F with a hx of advanced MS (bed bound, tetraplegic), nephrolithiasis, recurrent UTIs (hx of VRE) admitted to [facility] for acute encephalopathy likely secondary to infectious process, poss prior UTI. PLAN: 1. Suspected bacteremia possibly from recurrent UTI - Blood culture from 04/18/20 MRSA+ (1 bottle) at [facility], ? VISA (vancomycin intermediate staphyloccocus) infection. - Urine cx from 04/20/20 - positive for enteroccocus sens to linezolid. Later discharged with 10 days course - UCX here- no growth - BCx- NGTD - inflammatory markers elevated;however, not dramatically - TTE negative for vegetations - At this time, there is no proof that the patient had VISA, a reportable bacteria to the state. Dr. Marshall will be looking further into this. For now; h owever, with all cultures and w/u neg, there is no indication to continue abx. Tachycardia is isolated with no other s/s of SIRS or sepsis. 2. Encephalopathy likely 2/2 to infectious process -Since resolved and patient is at believed baseline -No confirmation of bacteremia here as mentioned above. 3. Hypothyroidism - THS, FT4 elevated - C/w increased dose of synthroid 125 mcg/day - PCP f/u 4. Dysphagia - FLAG DECORATOR eval: mechanical soft diet, regular/thin liquids - PEG tube not indicated at this time 5. Hypokalemia - K wnl, f/u in AM 6. MS - chronic, to f/u with neurologist in outpatient setting - tetraplegia - frequent turning 7. Nephrolithiasis - hx of stents in past - reviewed renal US - L kidney mild hydronephrosis, no stones - R kidney, no hydronephrosis, 2 stones (10x10 mm, 7x9 mm) - Cr remains wnl - discussed with Dr. Adame(urology) this admission. Would recommend referral to outpatient clinic and would consider lithotripsy to assist passage, may be contributing to recurrent UTI 8. Tachycardia possibly baseline, poss anxiety? - D-dimer 850, CTA neg for PE - f/u with PCP Dispo: SNF today. TIME SPENT ON DISCHARGE: Greater than 30 minutes. Vital Signs/I&Os Vital Signs Date Time Temp Pulse Resp B/P (MAP) Pulse Ox O2 Delivery O2 Flow Rate FiO2 04/30/20 06:00 98.0 100 18 119/76 (90) 96 Room Air I&O- Last 24 Hours up to 6 AM 04/30/20 06:00 Intake Total 1110 ml Output Total 0 ml Balance 1110 ml Laboratory Data Labs 24H Laboratory Tests 2 04/29/20 16:20: Coronavirus (COVID-19)(PCR) NEGATIVE 04/30/20 06:14: Immature Granulocyte % (Auto) 0.5, Neutrophils (%) (Auto) 61.2, Lymphocytes (%) (Auto) 21.4L, Monocytes (%) (Auto) 9.7H, Eosinophils (%) (Auto) 6.5H, Basophils (%) (Auto) 0.7, Neutrophils # (Auto) 6.8, Lymphocytes # (Auto) 2.4, Monocytes # (Auto) 1.1H, Eosinophils # (Auto) 0.7H, Basophils # (Auto) 0.1, Nucleated Red Blood Cells % (auto) 0.0, Anion Gap 7L, Glomerular Filtration Rate > 60.0, Calcium Level 8.7L, Magnesium Level 2.3, Total Bilirubin 0.4, Aspartate Amino Transf (AST/SGOT) 10, Alanine Aminotransferase (ALT/SGPT) 10L, Alkaline Phosphatase 76, Total Protein 7.5, Albumin 2.7L, Albumin/Globulin Ratio 0.6L CBC/BMP Laboratory Tests 04/30/20 06:14 Microbiology Microbiology 04/23/20 Urine Culture - Final, Complete 04/23/20 Blood Culture - Final, Complete NO GROWTH AFTER 5 DAYS 04/23/20 Blood Culture - Final, Complete NO GROWTH AFTER 5 DAYS Discharge Medications Scheduled Baclofen (Baclofen) 10 Mg Tab, 10 MG PO QID, (Reported) Bisacodyl (Bisacodyl) 5 Mg Tablet.dr, 5 MG PO QHS, (Reported) Ergocalciferol (Vitamin D2) (Vitamin D2) 50,000 Units Cap, 50,000 UNITS PO QMONTH, (Reported) 13TH OF EACH MONTH Ergocalciferol (Vitamin D2) (Vitamin D2) 50,000 Units Cap, 50,000 UNITS PO DAILY, (Reported) FOR 7 DAYS START ON 04/22/20 Estradiol (Estrace) 42.5 Gm Cream.appl, 1 GM PV QHS, (Reported) Ketoconazole (Ketoconazole) 120 Ml Shampoo, 1 DOSE TOP QWEEK, (Reported) MONDAYS Lactose-Reduced Food (Ensure Plus) 237 Ml Liquid, 237 ML PO DAILY, (Reported) Levothyroxine Sodium (Levothyroxine Sodium) 125 Mcg Tablet, 125 MCG PO QAM@0600 Oxybutynin Chloride (Oxybutynin Chloride ER) 5 Mg Tab.er.24, 5 MG PO DAILY, (Reported) Polyethylene Glycol 3350 (Miralax) 17 Gm Powd.pack, 17 GM PO DAILY, (Reported) Potassium Phosphate Monobasic (K-Phos Original) 500 Mg Tablet.stephanie, 250 MG PO TID, (Reported) Sennosides (Senna) 8.6 Mg Tablet, 8.6 MG PO QHS, (Reported) fentaNYL (fentaNYL) 75 Mcg Patch.td72, 75 MCG TD Q3RD, (Reported) APPLIED TO LEFT CHEST Scheduled PRN Acetaminophen (Acetaminophen) 325 Mg Tab, 650 MG PO Q6H PRN for FEVER, (Reported) Acetaminophen (Acetaminophen) 650 Mg Supp.rect, 650 MG CO Q6H PRN for PAIN, (Reported) Acetaminophen (Acetaminophen) 325 Mg Tablet, 650 MG PO BID PRN for PAIN LEVEL 1- 6, (Reported) Bisacodyl (Bisacodyl) 10 Mg Supp.rect, 10 MG CO QHS PRN for CONSTIPATION, (Reported) Guaifenesin (Guaifenesin) 100 Mg/5 Ml Liquid, 10 ML PO Q4H PRN for emeli, (Report ed) Hydrocodone/Acetaminophen (Hydrocodone-Acetamin 10-325 mg) 1 Each Tablet, 1 TAB PO Q6H PRN for PAIN, (Reported) Magnesium Hydroxide (Milk of Magnesia) 400 Mg/5 Ml Oral.susp, 30 ML PO DAILY PRN for CONSTIPATION, (Reported) Sodium Phosphate,Shackelford-Dibasic (Fleet Enema) 133 Ml Enema, 1 SILVESTRE CO DAILY PRN for CONSTIPATION, (Reported) Allergies Coded Allergies: ciprofloxacin (Verified Allergy, Unknown, 04/20/20) Keila Tesfaye MD Apr 30, 2020 14:08
--- NOTE | 2020-05-09 07:22 | CR ---
DATE OF CONSULTATION: 04/28/2020 REASON FOR CONSULTATION: Recurrent urinary tract infection. HISTORY OF PRESENT ILLNESS: Patient is a 64-year-old female with significant past medical history of recurrent urinary tract infection (UTI) with staghorn calculi, who was admitted to [facility] on 04/08/2020 with a UTI and sepsis, treated with Rocephin with a single blood culture growing vancomycin- intermediate Staphylococcus aureus and the other blood culture being negative. Transferred from that facility on April 20 for possible percutaneous endoscopic gastrostomy (PEG) placement to [facility], discharged the following day after dietary modification, on linezolid after a positive urine culture, and readmitted on 04/23/2020 with altered mental status and encephalopathy. Per the sister, who is her primary counter roller, she typically gets foul-smelling urine and becomes acutely altered any time she has a UTI. She typically has at least three per year and follows with urology for same. Currently, the sister states that she has improved on antibiotics but is still somewhat altered and confused compared to her normal baseline. MEDICAL HISTORY: 1. History of multiple sclerosis (MS). 2. quadriplegic, bed-bound since 2004. 3. Hypothyroidism. 4. Gastroesophageal reflux disease (GERD). 5. chronic constipation. 6. History of vancomycin-resistant enterococcus. 7. recurrent UTI with staghorn calculi. 8. History of pyelonephritis. 9. History of oropharyngeal aspiration. 10. History of neurogenic bladder secondary to MS.. 11. Osteoporosis. 12. Depression. 13. Anxiety. SURGICAL HISTORY: 1. Multiple lithotripsies. 2. History of bilateral nephrostomy tube placement. 3. History of left-sided nephrolithotomy. 4. Left ureteral stent and tubal ligation. SOCIAL HISTORY: [facility]. Quit smoking in 1994. No alcohol or illicit drug use. FAMILY HISTORY: Unspecified cancer in the family. OBJECTIVE: PHYSICAL EXAMINATION: VITAL SIGNS: Afebrile throughout stay. Temperature 97.8, pulse 110, respiratory rate 20, blood pressure 106/60, saturating 98% on room air. Intake and output: In 1060, 100 out in the last 24 hours. Patient is chronically incontinent at baseline with multiple voids throughout the day. GENERAL: Patient is an elderly appearing female, lying in bed with chronic contractures but appears generally comfortable. HEENT: Head is normocephalic, atraumatic. Extraocular muscles intact (EOMI). Lips are dry and cracked. Mucous membranes are somewhat dry as well. NECK: Trachea is midline. Neck is bent laterally to the right. CARDIOVASCULAR: Tachycardic rate, regular rhythm. Loud systolic murmur auscultated over right and left upper sternal border. No gallops. No rubs. LUNGS: Clear to auscultation bilaterally. No wheezes, crackles, rhonchi. ABDOMEN: Soft, nontender, nondistended. No hepatosplenomegaly. No masses or ecchymosis. EXTREMITIES: Chronic contractures in bilateral upper extremities at the level of the elbow and metacarpophalangeals (MCPs). Chronic contractures of the knees bilaterally. No swelling or edema. SKIN: No skin rashes or changes. LABORATORY DATA: White blood cell count of 15, hemoglobin 13.1, hematocrit 42.8, platelet count of 357 with neutrophil predominance of 68. Sodium 137, potassium 3.9, chloride 102, bicarbonate 24, BUN 6, creatinine 0.77, glucose 112, calcium 8.7, magnesium 1.9. Total bilirubin 0.5, AST 12, ALT 9, alkaline phosphatase 76, CRP 2.1, total protein 7, albumin 2.7. Urinalysis (UA) positive with 1+ leukocyte esterase. Urine white blood cells of 67. Urine red blood cells of 7. Nitrites negative. Urine squamous epithelial cells of 4. Urine specific gravity of 1.014. This UA was done on 04/23/2020. Coagulation done today D-dimer of 850. IMAGING: CT angiogram of chest with contrast: impression: No CT evidence of acute pulmonary embolus (PE). No CT evidence of acute thoracic aortic dissection, thoracic aneurysm, or acute intramural thoracic aortic hematoma. The heart size is normal. Minimal coronary artery acification is present. Mild bilateral central lobular emphysema is present. 5) A chronic anterior wedge compression of the T12 vertebral body is present with anterior loss less than 25%. A questionable old fracture deformity is seen in the proximal right humerus. Multiple hypodense masses are present in the left and right lobes of the liver with the largest measuring 2.4 cm in AP diameter on image 142 of series 401. These have benign features with well-defined castellanos and internal homogeneous low- attenuation density of less than 20 Hounsfield units and are likely small simple cysts or hemangiomas. No further followup is recommended. There is questionable endovascular metallic coil versus calculus, less likely present within the left kidney on image 168 of series 401. Echocardiogram 04/25/2020, showing normal left ventricle internal dimensions and wall thickness. Normal regional LV wall motion and wall thickening. Normal LV systolic function. Left ventricular ejection fraction (LVEF) 60% by visual estimate, grade 1 LV diastolic dysfunction. Moderate technically difficult echocardiogram. Mild mitral annular calcification. Mild mitral regurgitation. Very mild aortic valve sclerosis of a 3-cuspid aortic valve. No aortic regurgitation. Otherwise, normal-appearing echocardiogram Doppler. No pericardial effusion. ASSESSMENT: Patient is a 64-year-old female presenting with altered mental status and foul- smelling urine with a past medical history of recurrent urinary tract infections (UTIs), found to have a recent positive urine culture on April 20 and has completed 9 days of both intravenous (IV) and oral linezolid at this point. PLAN: At this point, her C-reactive protein (CRP) is relatively low. We will trend an erythrocyte sedimentation rate (ESR) for tomorrow morning as well as a CRP. It is unclear why her leukocytosis has suddenly recurred; however, at this time we will stop her antibiotics, as she has been on a more than 10-day course, including the Rocephin, and the linezolid itself may be the cause of her altered mental status at this point. If her white blood cell count continues to trend up, consider a CT abdomen and pelvis for further evaluation of possible infectious sources. We will attempt to reach out to [facility] to see if we can get a hold of the blood culture showing vancomycin-intermediate Staphylococcus aureus to determine, as the culture itself was not sent to the [facility], and our lab may consider sending it to the [facility] since it is such a rare source of infection. [facility]
--- NOTE | 2020-05-09 07:25 | IPN ---
DATE: 04/29/2020 SUBJECTIVE: Gerardo seems to be doing fairly well. She did not eat well. She ate less than 25% of her lunch, but otherwise has no complaints. No nausea, vomiting or diarrhea. Her sister, Raquel, is at the bedside. LABORATORY DATA: White count 11.8, hemoglobin 12.9, hematocrit 41.9, platelets 312,000. ESR 27. Sodium 136, potassium 3.5, chloride 102, bicarb 26, BUN 8, creatinine 0.76, glucose 104, calcium 8.7. Total bilirubin 0.4, AST 11, ALT 10. CRP 2.02. Blood cultures two sets were negative on 03/23/2020. Urine culture was negative. PHYSICAL EXAMINATION: VITAL SIGNS: Temperature 98.4, pulse 87, respirations 18, blood pressure 103/51, 02 sat 95% on room air. HEART: With systolic ejection murmur 3/6 at the left upper sternal border. LUNGS: Clear anteriorly. No wheezes, rales or rhonchi. ABDOMEN: Soft, nontender. EXTREMITIES: With severe contractures of upper and lower extremities with flexion at the knees and elbows and hands. IMPRESSION: 1. Urinary tract infection with enterococcus on 04/20/2020. Patient finished seven days of Linezolid. 2. Confusion: Seems to have improved off Linezolid. 3. History of multiple sclerosis. PLAN: Continue off antibiotics. There is a blood culture that was at [facility], identified as Vancomycin intermediate Staph Aureus on 04/18/2020. I suspect this was a mistake or a contaminant or a false identification as our blood cultures had not grown that. ESR is 26, which makes it very unlikely that she has a bacteremia. Continue monitoring for any sign of infection, repeated fever. If recurrent fever, please redraw two sets of blood cultures by at least 1 to 2 hours. MTDD
--- NOTE | 2020-05-09 13:59 | REP ---
PORTABLE CHEST X-RAY: SINGLE VIEW HISTORY: Elevated white blood cell count. COMPARISON: Chest x-ray 04/23/2020. FINDINGS: There is a dextroconvex curve in the thoracic spine as before. There is diffuse osteopenia. The lungs are symmetrically aerated and free of infiltrate. Heart size is borderline unchanged. Pulmonary vasculature is not increased. There is no evidence of pleural effusion. IMPRESSION: No acute disease. MTDD
== END 2020-04-30 07:18 | DRG 871 ==
LOC: EDBD 13:11 → M ED 13:11 → M ED INP 18:08 → ENRESERV 18:31 → M MS5PR 20:21
PROVIDERS: ADMIT Family Medicine; ATTEND Internal Medicine
DX: R78.81 Bacteremia (principal); G82.50 Quadriplegia, unspecified; G93.40 Encephalopathy, unspecified; N39.0 Urinary tract infection, site not specified; D72.829 Elevated white blood cell count, unspecified; G35 Multiple sclerosis; E87.6 Hypokalemia; R13.10 Dysphagia, unspecified; R44.1 Visual hallucinations; E03.9 Hypothyroidism, unspecified; Z66 Do not resuscitate; K21.9 Gastro-esophageal reflux disease without esophagitis; D64.9 Anemia, unspecified; R62.7 Adult failure to thrive; F32.9 Major depressive disorder, single episode, unspecified; F41.9 Anxiety disorder, unspecified; M81.0 Age-related osteoporosis without current pathological fracture; N31.9 Neuromuscular dysfunction of bladder, unspecified; Z74.01 Bed confinement status; Z87.442 Personal history of urinary calculi; Z79.899 Other long term (current) drug therapy; Z88.1 Allergy status to other antibiotic agents; Z20.828 Contact with and (suspected) exposure to other viral communicable diseases

== ENCOUNTER 2020-08-25 10:28 | Inpatient (IN) | payer MEDICARE, MEDICAID ==
[~2020-08-25] VITALS: Ht 160 cm; Wt 43.7 kg
[~2020-08-25 10:28] MED LIST changes: +KPHOS50TA PO; +LEVO125T4 PO
[2020-08-25 15:30] VITALS: BP 125/63
[2020-08-25] MEDS ORDERED: ACETAMINOPHEN TAB 650MG DOSE (2X325MG) PO PRN (16:30)
--- NOTE | 2020-08-25 17:10 | HPEPDOC ---
[facility] Medical History & Physical Date of Admission Aug 25, 2020 Date of Service: Aug 25, 2020 History and Physical Chief complaint: Transferred from [place] for pseudomonas UTI History of present illness: Patient is a 65-year-old female who is transferred from [facility] for urinary tract infection secondary to Pseudomonas. Patient was found to be COVID19 positive on , however, did not require any intervention for this. Patient presented to [facility] ER for burning with urination on 08/15. She was initially started on ceftriaxone for suspected Proteus UTI. She was changed to Cefepime on 08/24 for a Pseudomonas UTI (08/18). Currently patient denies any chest pain, shortness of breath, palpitations, nausea, vomiting, abdominal pain, diarrhea. I discussed with the patients sister, Raquel ([phone]). Patient has been having a regression in her ability to maintain her caloric intake and has had a weight loss since April 2020. Past Medical History: Multiple sclerosis (20 years; bed bound; Functional quadriplegia) SADI; not on CPAP Hypothyroidism Neurogenic bladder (s/p Borrero catheter) Anemia Anxiety / Depression Hx of Nephrolithiasis Constipation / History of fecal impaction Osteoporosis GERD Past Surgical History: Removal of upper teeth (12/2014) Dental surgery Tubal ligation Allergies: See below Medications: See below Family History: - No history of malignancies Social History: - Denies the use of alcohol or illicit drugs; Quit smoking - Denies recent travel or sick contacts - Lives at [facility] (half-way) - Occupation; prior banker Review of Systems: 10 point review of systems complete, all negative otherwise stated in HPI Physical exam: - Vitals: BP [125/63], HR [76], RR [16], Sat [97%NC2L], Temp [97.3F] - General: Lying in bed, Cachectic, Speaking in full sentences, AAOx2 (not oriented to time) - HEENT: NC, AT, PERRLA - CVS: RRR, +S1S2 - Lungs: Fair air entry bilaterally, No appreciable wheezing / rales / rhonchi - Abdomen: Soft, Non-distended, Non-tender - Extremities: No lower extremity edema, No calf tenderness - Neuro: No focal motor or sensory deficit - Skin: No visible rashes Labs: See below Imaging: See below EKG: See below Assessment and Plan: Dysphagia / Poor oral intake - possibly 2/2 progression of MS - Patient was transferred to [facility] from [facility] for poor oral intake - Discussed with family and they have reported continued weight loss and poor oral intake since April - Family has been in talks with General surgery about potential PEG tube placement - Currently patient has an NG tube in place - Will evaluate ability to swallow and determine total caloric requirement - Will get speech therapy / dietary consult - Discussed with her sister; healthcare proxy; Raquel Sheldon; will consider IR placement of PEG tube if required based on speech / dietary recommendations Suspected exacerbation of MS - Multiple sclerosis (20 years; bed bound; Functional quadriplegia) - Patient was empirically treated for an MS - Will get MRI brain with and without contrast to evaluate for exacerbation - Will start Solumedrol if MRI imaging is positive Pseudomonas UTI - Neurogenic bladder (s/p Borrero catheter) - Urine cultures from 08/18 was positive for Pseudomonas UTI - Will repeat CBC / CMP / Mg / Lactic acid / UA / Blood cultures / PCT - Will c/w Cefepime (Day #2) COVID19 infection - Diagnosed on 08/11/2020; repeat on 08/21/2020 positive - Currently is not experiencing any respiratory symptoms - CTA please [facility] on 08/14 was consistent with COVID-like changes - Saturating well; will titrate down on supplemental oxygen SADI - not on CPAP - Chronic hypoxia; patient has been on 2L of [place] oxygen while at [facility] - Will check continuouspulse oximeter Hypothyroidism - c/w Levothyroxine Anemia - Lobar from [facility] reveals stable hemoglobin Anxiety / Depression Hx of Nephrolithiasis Constipation / History of fecal impaction - c/w Bowel regimen as ordered Osteoporosis DVT prophylaxis - Will start Heparin Code status: - DNR / Trial intubation (non-invasive) Disposition: - Discussed with healthcare proxy, Raquel at [phone] Vital Signs Vital Signs Date Time Temp Pulse Resp B/P (MAP) Pulse Ox O2 Delivery O2 Flow Rate FiO2 08/25/20 15:30 97.3 76 16 125/63 (83) 97 Nasal Cannula 2.0 Laboratory Data Labs 24H Laboratory Tests 2 08/25/20 16:47: Home Medications Scheduled Baclofen (Baclofen) 10 Mg Tab, 10 MG PO QID Bisacodyl (Bisacodyl) 5 Mg Tablet.dr, 5 MG PO QHS Ergocalciferol (Vitamin D2) (Vitamin D2) 50,000 Units Cap, 50,000 UNITS PO QMONTH 13TH OF EACH MONTH Ergocalciferol (Vitamin D2) (Vitamin D2) 50,000 Units Cap, 50,000 UNITS PO DAILY FOR 7 DAYS START ON 04/22/20 Estradiol (Estrace) 42.5 Gm Cream.appl, 1 GM PV QHS Ketoconazole (Ketoconazole) 120 Ml Shampoo, 1 DOSE TOP QWEEK MONDAYS Lactose-Reduced Food (Ensure Plus) 237 Ml Liquid, 237 ML PO DAILY Levothyroxine Sodium (Levothyroxine Sodium) 125 Mcg Tablet, 125 MCG PO QAM@0600 Oxybutynin Chloride (Oxybutynin Chloride ER) 5 Mg Tab.er.24, 5 MG PO DAILY Polyethylene Glycol 3350 (Miralax) 17 Gm Powd.pack, 17 GM PO DAILY Potassium Phosphate Monobasic (K-Phos Original) 500 Mg Tablet.stephanie, 250 MG PO TID Sennosides (Senna) 8.6 Mg Tablet, 8.6 MG PO QHS fentaNYL (fentaNYL) 75 Mcg Patch.td72, 75 MCG TD Q3RD APPLIED TO LEFT CHEST Scheduled PRN Acetaminophen (Acetaminophen) 325 Mg Tab, 650 MG PO Q6H PRN for FEVER Acetaminophen (Acetaminophen) 650 Mg Supp.rect, 650 MG OR Q6H PRN for PAIN Acetaminophen (Acetaminophen) 325 Mg Tablet, 650 MG PO BID PRN for PAIN LEVEL 1- 6 Bisacodyl (Bisacodyl) 10 Mg Supp.rect, 10 MG OR QHS PRN for CONSTIPATION Guaifenesin (Guaifenesin) 100 Mg/5 Ml Liquid, 10 ML PO Q4H PRN for emeli Hydrocodone/Acetaminophen (Hydrocodone-Acetamin 10-325 mg) 1 Each Tablet, 1 TAB PO Q6H PRN for PAIN Magnesium Hydroxide (Milk of Magnesia) 400 Mg/5 Ml Oral.susp, 30 ML PO DAILY PRN for CONSTIPATION Sodium Phosphate,[place]-Dibasic (Fleet Enema) 133 Ml Enema, 1 SILVESTRE OR DAILY PRN for CONSTIPATION Allergies Coded Allergies: ciprofloxacin (Verified Allergy, Unknown, 04/20/20) HOWARD MILLARD MD Aug 25, 2020 17:10
[2020-08-25 17:26] LABS: HEMATOCRIT 33.7 % (36.0-47.0); MEAN CORPUSCULAR HEMOGLOBIN 24.3 pg (27.0-33.0); MEAN CORPUSCULAR HGB CONC 29.7 g/dl (32.0-36.5); MEAN CORPUSCULAR VOLUME 81.8 fl (80.0-96.0); PLATELET COUNT, AUTOMATED 451 10^3/uL (150-450); RED BLOOD COUNT 4.12 10^6/uL (4.00-5.40); WHITE BLOOD COUNT 8.8 10^3/uL (4.0-10.0)
[2020-08-25 17:51] LABS: ALBUMIN 2.4 GM/DL (3.2-5.2); ALT/SGPT 7 U/L (12-78); BILIRUBIN,TOTAL 0.3 MG/DL (0.2-1.0); BLOOD UREA NITROGEN 16 MG/DL (7-18); CALCIUM LEVEL 9.3 MG/DL (8.8-10.2); CARBON DIOXIDE LEVEL 29 MEQ/L (21-32); CHLORIDE LEVEL 106 MEQ/L (98-107); CREATININE FOR GFR 0.33 MG/DL (0.55-1.30); GLOMERULAR FILTRATION RATE > 60.0 (>45); GLUCOSE, FASTING 146 MG/DL (70-100); POTASSIUM SERUM 4.6 MEQ/L (3.5-5.1); SODIUM LEVEL 139 MEQ/L (136-145); TOTAL PROTEIN 7.1 GM/DL (6.4-8.2)
[2020-08-25] MEDS ORDERED: [UNRECOGNIZED DRUG - CODE] IV (18:12)
[2020-08-25] MEDS ORDERED: SENO8.6T10 PO (18:12)
[2020-08-25] MEDS ORDERED: K-PHTAB2 PO (18:12)
[2020-08-25] MEDS ORDERED: ENOX30IN3 SC (18:12)
[2020-08-25] MEDS ORDERED: METO1TAB32 PO (18:12)
[2020-08-25] MEDS ORDERED: SYNT112T2 PO (18:12)
[2020-08-25] MEDS ORDERED: POTA10CA32 PO (18:12)
[2020-08-25] MEDS ORDERED: CEFE1INJ IV (18:13)
[2020-08-25] MEDS ORDERED: BISACODYL 10 MG SUPP PR PRN (19:15)
[2020-08-25] MEDS ORDERED: MOM 30ML SUSPENSION UDC PO PRN (19:15)
[2020-08-25] MEDS ORDERED: fentaNYL 75 MCG/HR PATCH TD SCH (19:15)
[2020-08-25] MEDS ORDERED: FENTANYL REMOVAL DOCUMENTATION MISC XX SCH (19:15)
[2020-08-25] MEDS ORDERED: guaiFENesin SYRUP 200 MG/10 ML UDC PO PRN (19:15)
[2020-08-25] MEDS ORDERED: MIRALAX *UNIT DOSE* 17GM PACKET PO PRN (19:15)
[2020-08-25] MEDS ORDERED: FLEET ENEMA PR PRN (19:15)
[2020-08-25] MEDS ORDERED: NORCO, ANEXSIA 5/325MG TABLET (HYDROcodone/ACETAMINOPHEN) PO PRN (19:15)
[2020-08-25] MEDS ORDERED: CEFEPIME HCL 2 GM in D5W MINI-BAG PLUS 50 ML IV SCH (20:00)
[2020-08-25] MEDS ORDERED: oxyBUTYnin *DITROPAN XL* 5 MG TABCR PO SCH (21:00)
[2020-08-25] MEDS ORDERED: PROHANCE 279.3MG/ML 5ML VIAL As Ordered ONE (21:11)
[2020-08-25] MEDS: BISACODYL 5 MG TAB PO SCH (22:10)
[2020-08-25] MEDS: HEPARIN SOD (PORCINE) 5000UNITS/ML 1ML VIAL/SYRINGE SC SCH (22:10)
[2020-08-25] MEDS: SENOKOT S TAB PO SCH (22:10)
[2020-08-25] MEDS: BACLOFEN 10 MG TAB PO SCH (22:10)
--- NOTE | 2020-08-25 22:23 | REPVR ---
PROCEDURE INFORMATION: Exam: MR Head Without and With Contrast Exam date and time: 08/25/2020 8:58 PM Age: 65 years old Clinical indication: Altered mental status/memory loss and weakness, extremity; Bilateral; Confusion or disorientation; Patient HX: HX m/s decline in condition; Additional info: Evaluate for ms flare TECHNIQUE: Imaging protocol: MR of the head without and with intravenous contrast. 3D rendering (Not supervised by radiologist): MIP and/or 3D reconstructed images were created by the technologist. Contrast material: PROHANCE; Contrast volume: 8 ml; Contrast route: INTRAVENOUS (IV); COMPARISON: No relevant prior studies available. FINDINGS: Brain: There are extensive periventricular, deep white matter, and pericallosal white matter T2 hyperintense foci in both cerebral hemispheres, brainstem, and upper cervical spinal cord. No enhancing white matter plaques are seen. No mass or other abnormal enhancement. No signs of a recent infarction. No mass effect or midline shift. Generalized cerebral volume loss. Cerebral ventricles: Normal. No ventriculomegaly. Bones/joints: Unremarkable. Paranasal sinuses: Normal as visualized. No acute sinusitis. Mastoid air cells: Normal as visualized. No mastoid effusion. Orbital cavity: Unremarkable. Soft tissues: Unremarkable. IMPRESSION: 1. Extensive white matter changes typical of multiple sclerosis. No signs of active demyelination. 2. No acute findings. Electronically signed by: Bob Arzate On 08/25/2020 22:22:39 PM
[2020-08-25] MEDS: CEFEPIME HCL 2 GM in D5W MINI-BAG PLUS 50 ML IV SCH (22:57)
[2020-08-26 01:28] VITALS: O2SAT 97
[2020-08-26] MEDS: CEFEPIME HCL 2 GM in D5W MINI-BAG PLUS 50 ML IV SCH ×3 (05:42→22:15)
[2020-08-26] MEDS: HEPARIN SOD (PORCINE) 5000UNITS/ML 1ML VIAL/SYRINGE SC SCH ×3 (05:43→22:16)
[2020-08-26] MEDS: LEVOTHYROXINE 112MCG TABLET (0.112MG) PO SCH (05:43)
[2020-08-26 06:00] VITALS: BP 120/63
[2020-08-26 06:40] LABS: BASO % 0.1 % (0.0-1.0); HEMATOCRIT 33.2 % (36.0-47.0); HEMOGLOBIN 9.7 g/dl (12.0-15.5); LYMPH # 1.1 10^3/uL (1.5-5.0); LYMPH % 14.8 % (24.0-44.0); MEAN CORPUSCULAR HEMOGLOBIN 23.7 pg (27.0-33.0); MEAN CORPUSCULAR HGB CONC 29.2 g/dl (32.0-36.5); MONO # 0.6 10^3/uL (0.0-0.8); MONO % 8.2 % (0.0-5.0); NEUTROPHILS # 5.6 10^3/uL (1.5-8.5); NEUTROPHILS % 76.4 % (36.0-66.0); PLATELET COUNT, AUTOMATED 313 10^3/uL (150-450); WHITE BLOOD COUNT 7.3 10^3/uL (4.0-10.0)
[2020-08-26 07:02] LABS: BLOOD UREA NITROGEN 18 MG/DL (7-18); CALCIUM LEVEL 9.1 MG/DL (8.8-10.2); CARBON DIOXIDE LEVEL 27 MEQ/L (21-32); CHLORIDE LEVEL 105 MEQ/L (98-107); CREATININE FOR GFR 0.48 MG/DL (0.55-1.30); GLOMERULAR FILTRATION RATE > 60.0 (>45); GLUCOSE, FASTING 189 MG/DL (70-100); MAGNESIUM LEVEL 2.3 MG/DL (1.8-2.4); POTASSIUM SERUM 4.3 MEQ/L (3.5-5.1); SODIUM LEVEL 138 MEQ/L (136-145)
[2020-08-26] MEDS ORDERED: METOPROLOL SUCC *XL* 25MG TAB (TopROL *XL*) PO SCH (09:00)
[2020-08-26] MEDS: BACLOFEN 10 MG TAB PO SCH ×4 (10:35→22:16)
[2020-08-26] MEDS: METOPROLOL TART 25 MG TABLET PO SCH (10:35)
[2020-08-26] MEDS: oxyBUTYnin 5 MG TAB PO SCH ×2 (10:35→22:16)
[2020-08-26 14:00] VITALS: BP 111/60
--- NOTE | 2020-08-26 14:59 | IPNPDOC ---
Date Seen The patient was seen on 08/26/20. Progress Note SUBJECTIVE: no c/o sob, fever, chills, or cough. OBJECTIVE PHYSICAL EXAMINATION: VITAL SIGNS: Please see below. GENERAL: NG tube. no distress. aaox3 answering questions a appropriately cachectic no pallor bitemporal wasting HEENT: no JVD moist mm NG tube CARDIOVASCULAR: S1S2 RRR RESPIRATORY: diminished no rales ABDOMINAL: soft nt nd +bs chronic torres EXTREMITIES: contracted b/l UE, LE mm atrophy b/l . no c/c/e. LABORATORY DATA, IMAGING STUDIES, MICROBIOLOGY: Please see below. MRI BRAIN 08/25/20 Exam: MR Head Without and With Contrast Exam date and time: 08/25/2020 8:58 PM Age: 65 years old Clinical indication: Altered mental status/memory loss and weakness, extremity; Bilateral; Confusion or disorientation; Patient HX: HX m/s decline in condition; Additional info: Evaluate for ms flare TECHNIQUE: Imaging protocol: MR of the head without and with intravenous contrast. 3D rendering (Not supervised by radiologist): MIP and/or 3D reconstructed images were created by the technologist. Contrast material: PROHANCE; Contrast volume: 8 ml; Contrast route: INTRAVENOUS (IV); COMPARISON: No relevant prior studies available. FINDINGS: Brain: There are extensive periventricular, deep white matter, and pericallosal white matter T2 hyperintense foci in both cerebral hemispheres, brainstem, and upper cervical spinal cord. No enhancing white matter plaques are seen. No mass or other abnormal enhancement. No signs of a recent infarction. No mass effect or midline shift. Generalized cerebral volume loss. Cerebral ventricles: Normal. No ventriculomegaly. Bones/joints: Unremarkable. Paranasal sinuses: Normal as visualized. No acute sinusitis. Mastoid air cells: Normal as visualized. No mastoid effusion. Orbital cavity: Unremarkable. Soft tissues: Unremarkable. IMPRESSION: 1. Extensive white matter changes typical of multiple sclerosis. No signs of active demyelination. 2. No acute findings. Electronically signed by: Bob Arzate On 08/25/2020 22:22:39 PM ASSESSMENT AND PLAN: 65y/o F with chronic progressive MS with functional quadriplegia, neurogenic bladder w chronic torres catheter, SADI, Hypothyroidism, anxiety/depression, anemia of chronic disease, severe protein calorie malnutrition BMI 17.1 w cachexia and muscle atrophy / bitemporal wasting transferred from [facility] where she presented with UTI, treated for Pseudomonas for feeding tube placement. Dysphagia -NG tube placed -for PEG tube placement -production laborer for tube feed recommendations -meds changed Failure to thrive/ Severe protein calorie malnutrition Multiple sclerosis (20 years; bed bound; Functional quadriplegia) -with contractures -MRI Brain: no acute changes indicative of exacerbation -chronic indwelling torres catheter SADI; not on CPAP -no acute issues Hypothyroidism -on synthroid Neurogenic bladder (s/p Torres catheter) Anemia -due to hronic disease -no acute indication for rbc transfusion Anxiety / Depression -chronic Constipation / History of fecal impaction -bowel regimen Osteoporosis -chronic GERD -PPI Pseudomonas UTI - IV Cefepime (Day #3) COVID19 infection - Diagnosed on 08/11/2020; repeat on 08/21/2020 positive - CTA please [facility] on 08/14 was consistent with COVID-like changes -droplet/contact precautions DVT prophylaxis - Heparin Code status: - DNR / Trial intubation (non-invasive) - healthcare proxy, Raquel at [phone] VS, I&O, 24H, Fishbone Vital Signs/I&O Vital Signs Date Time Temp Pulse Resp B/P (MAP) Pulse Ox O2 Delivery O2 Flow Rate FiO2 08/26/20 10:35 76 120/63 08/26/20 06:00 97.6 16 96 Room Air 08/25/20 15:30 2.0 I&O- Last 24 Hours up to 6 AM 08/26/20 06:00 Intake Total 525 ml Output Total 575 ml Balance -50 ml Laboratory Data 24H LABS Laboratory Tests 2 08/25/20 16:47: Urine Color YELLOW, Urine Appearance HAZY, Urine pH 7.0, Urine Specific [place] 1.015, Urine Protein NEGATIVE, Urine Glucose (UA) NEGATIVE, Urine Ketones NEGATIVE, Urine Blood NEGATIVE, Urine Nitrite NEGATIVE, Urine Bilirubin NEGATIVE, Urine Urobilinogen 0.2, Urine Leukocyte Esterase 1+H, Urine WBC (Auto) 24H, Urine RBC (Auto) 8H, Urine Hyaline Casts (Auto) 0, Urine Bacteria (Auto) NEGATIVE, Urine Squamous Epithelial Cells 1, Urine Yeast-Like Cells (Auto) MODERATEH, Urine Sperm (Auto) , Methicillin-Resist S.aureus DNA PCR NOT DETECTED 08/25/20 17:12: Nucleated Red Blood Cells % (auto) 0.0, Anion Gap 4L, Glomerular Filtration Rate > 60.0, Lactic Acid Level 1.1, Calcium Level 9.3, Total Bilirubin 0.3, Aspartate Amino Transf (AST/SGOT) < 3L, Alanine Aminotransferase (ALT/SGPT) 7L, Alkaline Phosphatase 56, Total Protein 7.1, Albumin 2.4L, Albumin/Globulin Ratio 0.5L 08/26/20 06:00: Nucleated Red Blood Cells % (auto) 0.0, Anion Gap 6L, Glomerular Filtration Rate > 60.0, Calcium Level 9.1, Immature Granulocyte % (Auto) 0.5, Neutrophils (%) (Auto) 76.4H, Lymphocytes (%) (Auto) 14.8L, Monocytes (%) (Auto) 8.2H, Eosinophils (%) (Auto) 0.0, Basophils (%) (Auto) 0.1, Neutrophils # (Auto) 5.6, Lymphocytes # (Auto) 1.1L, Monocytes # (Auto) 0.6, Eosinophils # (Auto) 0.0, Basophils # (Auto) 0.0, Magnesium Level 2.3 CBC/BMP Laboratory Tests 08/25/20 17:12 08/26/20 06:00 Microbiology Microbiology 08/25/20 Blood Culture, Received Pending 08/25/20 Blood Culture, Received Pending 08/25/20 Urine Culture, Received Pending MORE PAULINO MD Aug 26, 2020 14:51
[2020-08-26 22:00] VITALS: BP 100/53
[2020-08-26] MEDS: SENOKOT S TAB PO SCH (22:15)
[2020-08-26] MEDS: BISACODYL 5 MG TAB PO SCH (22:16)
[2020-08-27] MEDS: CEFEPIME HCL 2 GM in D5W MINI-BAG PLUS 50 ML IV SCH ×3 (05:46→21:33)
[2020-08-27] MEDS: LEVOTHYROXINE 112MCG TABLET (0.112MG) PO SCH (05:46)
[2020-08-27] MEDS: HEPARIN SOD (PORCINE) 5000UNITS/ML 1ML VIAL/SYRINGE SC SCH (05:46)
[2020-08-27 06:00] VITALS: BP 100/56
[2020-08-27 06:19] LABS: BLOOD UREA NITROGEN 18 MG/DL (7-18); CALCIUM LEVEL 9.2 MG/DL (8.8-10.2); CARBON DIOXIDE LEVEL 32 MEQ/L (21-32); CHLORIDE LEVEL 105 MEQ/L (98-107); CREATININE FOR GFR 0.33 MG/DL (0.55-1.30); GLOMERULAR FILTRATION RATE > 60.0 (>45); GLUCOSE, FASTING 99 MG/DL (70-100); MAGNESIUM LEVEL 2.2 MG/DL (1.8-2.4); POTASSIUM SERUM 4.1 MEQ/L (3.5-5.1); SODIUM LEVEL 137 MEQ/L (136-145)
[2020-08-27 06:39] LABS: BASO % 0.2 % (0.0-1.0); EOS % 0.3 % (0.0-3.0); HEMATOCRIT 35.1 % (36.0-47.0); HEMOGLOBIN 10.5 g/dl (12.0-15.5); LYMPH # 2.9 10^3/uL (1.5-5.0); LYMPH % 30.1 % (24.0-44.0); MEAN CORPUSCULAR HEMOGLOBIN 24.2 pg (27.0-33.0); MEAN CORPUSCULAR HGB CONC 29.9 g/dl (32.0-36.5); MEAN CORPUSCULAR VOLUME 81.1 fl (80.0-96.0); MONO # 1.2 10^3/uL (0.0-0.8); MONO % 12.7 % (0.0-5.0); NEUTROPHILS # 5.4 10^3/uL (1.5-8.5); RED BLOOD COUNT 4.33 10^6/uL (4.00-5.40); WHITE BLOOD COUNT 9.7 10^3/uL (4.0-10.0)
[2020-08-27 06:42] LABS: PLATELET COUNT, AUTOMATED 428 10^3/uL (150-450)
[2020-08-27] MEDS: METOPROLOL TART 25 MG TABLET PO SCH (09:00)
[2020-08-27] MEDS: BACLOFEN 10 MG TAB PO SCH ×4 (10:20→21:33)
[2020-08-27] MEDS: oxyBUTYnin 5 MG TAB PO SCH ×2 (10:20→21:33)
--- NOTE | 2020-08-27 11:11 | IPNPDOC ---
Date Seen The patient was seen on 08/27/20. Progress Note SUBJECTIVE: despite hypotension sbp in 90's mmhg, denies lightheadedness, dizziness able to speak normally. ng tube still in place. IR Dr. Jesus consulted for feeding tube placement tomorrow-hold tube feeds after midnight tonight. heparin sq held . OBJECTIVE PHYSICAL EXAMINATION: VITAL SIGNS: Please see below. GENERAL:appears older than stated age. no cyanosis NG tube. no distress. [id number] answering questions a appropriately cachectic no pallor bitemporal wasting HEENT: no JVD moist mm NG tube CARDIOVASCULAR: S1S2 RRR RESPIRATORY: diminished no rales ABDOMINAL: soft nt nd +bs chronic otrres EXTREMITIES: contracted b/l UE, LE mm atrophy b/l . no c/c/e. LABORATORY DATA, IMAGING STUDIES, MICROBIOLOGY: Please see below. MRI BRAIN 08/25/20 Exam: MR Head Without and With Contrast Exam date and time: 08/25/2020 8:58 PM Age: 65 years old Clinical indication: Altered mental status/memory loss and weakness, extremity; Bilateral; Confusion or disorientation; Patient HX: HX m/s decline in condition; Additional info: Evaluate for ms flare TECHNIQUE: Imaging protocol: MR of the head without and with intravenous contrast. 3D rendering (Not supervised by radiologist): MIP and/or 3D reconstructed images were created by the technologist. Contrast material: PROHANCE; Contrast volume: 8 ml; Contrast route: INTRAVENOUS (IV); COMPARISON: No relevant prior studies available. FINDINGS: Brain: There are extensive periventricular, deep white matter, and pericallosal white matter T2 hyperintense foci in both cerebral hemispheres, brainstem, and upper cervical spinal cord. No enhancing white matter plaques are seen. No mass or other abnormal enhancement. No signs of a recent infarction. No mass effect or midline shift. Generalized cerebral volume loss. Cerebral ventricles: Normal. No ventriculomegaly. Bones/joints: Unremarkable. Paranasal sinuses: Normal as visualized. No acute sinusitis. Mastoid air cells: Normal as visualized. No mastoid effusion. Orbital cavity: Unremarkable. Soft tissues: Unremarkable. IMPRESSION: 1. Extensive white matter changes typical of multiple sclerosis. No signs of active demyelination. 2. No acute findings. Electronically signed by: Bob Arzate On 08/25/2020 22:22:39 PM ASSESSMENT AND PLAN: 65y/o F with chronic progressive MS with functional quadriplegia, neurogenic bladder w chronic torres catheter, SADI, Hypothyroidism, anxiety/depression, anemia of chronic disease, severe protein calorie malnutrition BMI 17.1 w cachexia and muscle atrophy / bitemporal wasting transferred from [facility] where she presented with UTI, treated for Pseudomonas for feeding tube placement. Dysphagia -NG tube placed -for feeding tube placement by IR on 08/28/20 Dr. Jesus -for feeding tube placement by IR on 08/28/20 Dr. Jesus -meds changed to meds that can be crushed eg. metoprolol tartrate and detrol NOT extended release Failure to thrive/ Severe protein calorie malnutrition -for feeding tube placement by IR on 08/28/20 Dr. Jesus -for feeding tube placement by IR on 08/28/20 Dr. Jesus Multiple sclerosis (20 years; bed bound; Functional quadriplegia) -with contractures -MRI Brain: no acute changes indicative of exacerbation -chronic indwelling torres catheter SADI; not on CPAP -no acute issues Hypothyroidism -on synthroid Neurogenic bladder (s/p Torres catheter) Anemia -due to chronic disease -no acute indication for rbc transfusion Anxiety / Depression -chronic Constipation / History of fecal impaction -bowel regimen Osteoporosis -chronic GERD -PPI Pseudomonas UTI - IV Cefepime (Day #4) COVID19 infection - Diagnosed on 08/11/2020; repeat on 08/21/2020 positive - CTA please [facility] on 08/14 was consistent with COVID-like changes -droplet/contact precautions DVT prophylaxis - Heparin Code status: - DNR / Trial intubation (non-invasive) - healthcare proxy, Raquel at [phone] VS, I&O, 24H, Fishbone Vital Signs/I&O Vital Signs Date Time Temp Pulse Resp B/P (MAP) Pulse Ox O2 Delivery O2 Flow Rate FiO2 08/27/20 09:00 85 95/78 08/27/20 06:00 97.7 16 96 Room Air 08/25/20 15:30 2.0 I&O- Last 24 Hours up to 6 AM 08/27/20 06:00 Intake Total 475 ml Output Total 1300 ml Balance -825 ml Laboratory Data 24H LABS Laboratory Tests 2 08/27/20 05:35: Immature Granulocyte % (Auto) 0.7, Neutrophils (%) (Auto) 56.0, Lymphocytes (%) (Auto) 30.1, Monocytes (%) (Auto) 12.7H, Eosinophils (%) (Auto) 0.3, Basophils (%) (Auto) 0.2, Neutrophils # (Auto) 5.4, Lymphocytes # (Auto) 2.9, Monocytes # (Auto) 1.2H, Eosinophils # (Auto) 0.0, Basophils # (Auto) 0.0, Nucleated Red Blood Cells % (auto) 0.0, Anion Gap 0L, Glomerular Filtration Rate > 60.0, Calcium Level 9.2, Magnesium Level 2.2 CBC/BMP Laboratory Tests 08/27/20 05:35 Microbiology Microbiology 08/25/20 Blood Culture - Preliminary, Resulted No growth after 24 hours . All specim... 08/25/20 Blood Culture - Preliminary, Resulted No growth after 24 hours . All specim... 08/25/20 Urine Culture - Preliminary, Resulted Enterococcus Faecium MORE PAULINO MD Aug 27, 2020 11:11
[2020-08-27] MEDS: MAGNESIUM CITRATE 300 ML BTL NG ONE ×2 (13:00→14:42)
--- NOTE | 2020-08-27 13:34 | REP ---
INDICATION: constipation. COMPARISON: Comparison radiograph April 15, 2015.. TECHNIQUE: Two supine views the abdomen are provided. FINDINGS: A nasogastric tube is seen terminating in the right upper quadrant consistent with a position near the pylorus. There is diffuse osteopenia. Patient is rotated somewhat to the right. There is moderate stool in the distal colon and rectum. There are air-filled loops of nondilated small and large bowel in the abdomen. This is nonspecific. No obstructive lesion is seen. Right flank stripes intact. Left flank stripes obscured. There are metallic coil like densities in the left mid abdomen suggesting previous embolization therapy. These appear in the lower pole of the left kidney on previous CT. There is moderate osteoarthritis of the left hip. Degenerative spondylosis changes are seen in the lumbar spine. IMPRESSION: Nonspecific large and small bowel air-filled loops without dilation. Moderate stool in the rectum and rectosigmoid. No obstructive lesion seen. NG tube noted. <Electronically signed by Tomy Julien > 08/27/20 [id number]
[2020-08-27 14:00] VITALS: BP 125/68
[2020-08-27] MEDS ORDERED: MAGNESIUM CITRATE 300 ML BTL NG ONE (15:45)
[2020-08-27] MEDS: BISACODYL 5 MG TAB PO SCH (21:33)
[2020-08-27] MEDS: SENOKOT S TAB PO SCH (21:33)
[2020-08-27 22:00] VITALS: BP 122/66
[2020-08-28] MEDS: LEVOTHYROXINE 112MCG TABLET (0.112MG) PO SCH (05:59)
[2020-08-28] MEDS: CEFEPIME HCL 2 GM in D5W MINI-BAG PLUS 50 ML IV SCH ×2 (05:59→14:34)
[2020-08-28 06:00] VITALS: BP 112/68
[2020-08-28 06:08] LABS: BASO % 0.2 % (0.0-1.0); EOS # 0.3 10^3/uL (0.0-0.5); EOS % 2.6 % (0.0-3.0); HEMATOCRIT 38.1 % (36.0-47.0); HEMOGLOBIN 11.1 g/dl (12.0-15.5); LYMPH # 2.9 10^3/uL (1.5-5.0); MEAN CORPUSCULAR HEMOGLOBIN 23.6 pg (27.0-33.0); MEAN CORPUSCULAR HGB CONC 29.1 g/dl (32.0-36.5); MEAN CORPUSCULAR VOLUME 80.9 fl (80.0-96.0); MONO # 1.1 10^3/uL (0.0-0.8); MONO % 10.3 % (0.0-5.0); NEUTROPHILS # 6.4 10^3/uL (1.5-8.5); NEUTROPHILS % 59.3 % (36.0-66.0); PLATELET COUNT, AUTOMATED 450 10^3/uL (150-450); RED BLOOD COUNT 4.71 10^6/uL (4.00-5.40); WHITE BLOOD COUNT 10.8 10^3/uL (4.0-10.0)
[2020-08-28 06:28] LABS: BLOOD UREA NITROGEN 16 MG/DL (7-18); C REACTIVE PROTEIN QUANTITATIV 0.69 MG/DL (0.00-0.30); CARBON DIOXIDE LEVEL 33 MEQ/L (21-32); CHLORIDE LEVEL 103 MEQ/L (98-107); CREATININE FOR GFR 0.41 MG/DL (0.55-1.30); GLOMERULAR FILTRATION RATE > 60.0 (>45); GLUCOSE, FASTING 99 MG/DL (70-100); MAGNESIUM LEVEL 2.5 MG/DL (1.8-2.4); POTASSIUM SERUM 4.4 MEQ/L (3.5-5.1); SODIUM LEVEL 137 MEQ/L (136-145)
[2020-08-28 07:20] LABS: ERYTHROCYTE SEDIMENTATION RATE 45 mm/hr (0-30)
[2020-08-28] MEDS: METOPROLOL TART 25 MG TABLET PO SCH (09:00)
[2020-08-28] MEDS: BACLOFEN 10 MG TAB PO SCH ×4 (09:22→21:46)
[2020-08-28] MEDS: oxyBUTYnin 5 MG TAB PO SCH ×2 (09:23→21:46)
--- NOTE | 2020-08-28 10:56 | IPNPDOC ---
Date Seen The patient was seen on 08/28/20. Progress Note SUBJECTIVE: increased wbc 12 w/o fever smc urine cx: VRE on contact isolation started on zyvox.since admission on iv cefepime for pseudomonas in urine cx from outlying hospital. c/o slight cough mucusy white phlegm w/o fever or chills or sob. denies dysuria, torres w/o foul smelling urine, but cloudy. no flank pain OBJECTIVE PHYSICAL EXAMINATION: VITAL SIGNS: Please see below. GENERAL:cachectic bitemporal wasting slow to speak but comprehensible HEENT: no JVD dry mm NG tube in left nares CARDIOVASCULAR: S1S2 RRR RESPIRATORY: diminished no rales ABDOMINAL: soft nt nd +bs chronic torres EXTREMITIES: contracted b/l UE, LE mm atrophy b/l . no c/c/e. LABORATORY DATA, IMAGING STUDIES, MICROBIOLOGY: Please see below. MRI BRAIN 08/25/20 Exam: MR Head Without and With Contrast Exam date and time: 08/25/2020 8:58 PM Age: 65 years old Clinical indication: Altered mental status/memory loss and weakness, extremity; Bilateral; Confusion or disorientation; Patient HX: HX m/s decline in condition; Additional info: Evaluate for ms flare TECHNIQUE: Imaging protocol: MR of the head without and with intravenous contrast. 3D rendering (Not supervised by radiologist): MIP and/or 3D reconstructed images were created by the technologist. Contrast material: PROHANCE; Contrast volume: 8 ml; Contrast route: INTRAVENOUS (IV); COMPARISON: No relevant prior studies available. FINDINGS: Brain: There are extensive periventricular, deep white matter, and pericallosal white matter T2 hyperintense foci in both cerebral hemispheres, brainstem, and upper cervical spinal cord. No enhancing white matter plaques are seen. No mass or other abnormal enhancement. No signs of a recent infarction. No mass effect or midline shift. Generalized cerebral volume loss. Cerebral ventricles: Normal. No ventriculomegaly. Bones/joints: Unremarkable. Paranasal sinuses: Normal as visualized. No acute sinusitis. Mastoid air cells: Normal as visualized. No mastoid effusion. Orbital cavity: Unremarkable. Soft tissues: Unremarkable. IMPRESSION: 1. Extensive white matter changes typical of multiple sclerosis. No signs of active demyelination. 2. No acute findings. Electronically signed by: Bob Arzate On 08/25/2020 22:22:39 PM ASSESSMENT AND PLAN: 65y/o F with chronic progressive MS with functional quadriplegia, neurogenic bladder w chronic torres catheter, SADI, Hypothyroidism, anxiety/depression, anemia of chronic disease, severe protein calorie malnutrition BMI 17.1 w cachexia and muscle atrophy / bitemporal wasting transferred from [facility] where she presented with UTI, treated for Pseudomonas for feeding tube placement. Recurrent UTI -chronic indwelling catheter due to neurogenic bladder from progressive Multiple sclerosis -iv cefepime for pseudomonas from urine cx at [facility] prior to transfer to [facility] and zyvox for vre from [facility] urine cx -contact precautions for vre Dysphagia -NG tube placed for meds and nutrition -09/08/[address] tube [address] IR [address]. Jesus (10 days after covid+ test 08/27/20) Failure to thrive/ Severe protein calorie malnutrition -for feeding tube placement by IR on 08/28/20 Dr. Jesus -section plotter operator consulted for tube feedings Multiple sclerosis (20 years; bed bound; Functional quadriplegia) -with contractures and muscle atrophy, bed bound turn q2hrs and reposition. cough and incentive spirometry -MRI Brain: no acute changes indicative of exacerbation -chronic indwelling torres catheter SADI; not on CPAP -no acute issues Hypothyroidism -on synthroid Neurogenic bladder (s/p Torres catheter) Anemia -due to chronic disease -no acute indication for rbc transfusion Anxiety / Depression -chronic Constipation / History of fecal impaction -bowel regimen Osteoporosis -chronic GERD -PPI Pseudomonas UTI - IV Cefepime (Day #5) COVID19 infection - Diagnosed on 08/11/2020; repeat on 08/21/2020 positive - CTA please [facility] on 08/14 was consistent with COVID-like changes -droplet/contact precautions DVT prophylaxis - Heparin Code status: - DNR / Trial intubation (non-invasive) - healthcare proxy, Raquel at [phone] VS, I&O, 24H, Fishbone Vital Signs/I&O Vital Signs Date Time Temp Pulse Resp B/P (MAP) Pulse Ox O2 Delivery O2 Flow Rate FiO2 08/28/20 09:00 111 98/62 08/28/20 06:00 97.3 16 98 Room Air 08/25/20 15:30 2.0 I&O- Last 24 Hours up to 6 AM 08/28/20 06:00 Intake Total 1210 ml Output Total 650 ml Balance 560 ml Laboratory Data 24H LABS Laboratory Tests 2 08/27/20 11:22: Coronavirus (COVID-19)(PCR) POSITIVEA 08/28/20 05:24: Immature Granulocyte % (Auto) 0.6, Neutrophils (%) (Auto) 59.3, Lymphocytes (%) (Auto) 27.0, Monocytes (%) (Auto) 10.3H, Eosinophils (%) (Auto) 2.6, Basophils (%) (Auto) 0.2, Neutrophils # (Auto) 6.4, Lymphocytes # (Auto) 2.9, Monocytes # (Auto) 1.1H, Eosinophils # (Auto) 0.3, Basophils # (Auto) 0.0, Nucleated Red Blood Cells % (auto) 0.0, Erythrocyte Sedimentation Rate 45H, Anion Gap 1L, Glomerular Filtration Rate > 60.0, Calcium Level 9.0, Magnesium Level 2.5H, C- Reactive Protein, Quantitative 0.69H, Procalcitonin 0.09 CBC/BMP Laboratory Tests 08/28/20 05:24 Microbiology Microbiology 08/25/20 Blood Culture - Preliminary, Resulted No Growth after 48 hours. All Specime... 08/25/20 Blood Culture - Preliminary, Resulted No Growth after 48 hours. All Specime... 08/25/20 Urine Culture - Final, Complete Enterococcus Faecium (Vre) MORE PAULINO MD Aug 28, 2020 10:56
--- NOTE | 2020-08-28 11:38 | REP ---
INDICATION: cough on tube feeds r/o aspiration. recent covid + COMPARISON: 04/28/2020 TECHNIQUE: Portable AP view of the chest FINDINGS: Nasogastric tube courses below the left hemidiaphragm. The mediastinum and cardiac silhouette are stable and within normal limits for portable technique. The lung cristina demonstrate chronic appearing changes. Subtle superimposed bilateral and specifically left perihilar/infrahilar and right basilar airspace disease cannot definitively be excluded. No discrete focal consolidation. No effusion. Skeletal structures demonstrate stable degenerative changes. IMPRESSION: Chronic changes. Questionable left perihilar and right basilar early infiltrate. No discrete focal consolidation or effusion. <Electronically signed by Emre Herndon > 08/28/20 [id number]
[2020-08-28] MEDS ORDERED: LINEZOLID 600MG TABLET (ZYVOX) PO ONE (12:00)
[2020-08-28 14:00] VITALS: BP 101/63
[2020-08-28] MEDS ORDERED: LINEZOLID 600MG TABLET (ZYVOX) PO SCH (21:00)
[2020-08-28] MEDS: SENOKOT S TAB PO SCH (21:46)
[2020-08-28] MEDS: BISACODYL 5 MG TAB PO SCH (21:46)
[2020-08-28] MEDS: NYSTATIN 100,000 UNITS/GM TOPICAL PWD 15 GM TOP SCH (21:50)
[2020-08-28 22:00] VITALS: BP 102/64
[2020-08-29] MEDS: LEVOTHYROXINE 112MCG TABLET (0.112MG) PO SCH (05:58)
[2020-08-29 06:00] VITALS: BP 98/61
[2020-08-29 07:56] LABS: BASO % 0.2 % (0.0-1.0); EOS # 0.5 10^3/uL (0.0-0.5); EOS % 4.2 % (0.0-3.0); HEMATOCRIT 39.5 % (36.0-47.0); HEMOGLOBIN 11.9 g/dl (12.0-15.5); LYMPH # 2.4 10^3/uL (1.5-5.0); MEAN CORPUSCULAR HEMOGLOBIN 24.2 pg (27.0-33.0); MEAN CORPUSCULAR HGB CONC 30.1 g/dl (32.0-36.5); MEAN CORPUSCULAR VOLUME 80.3 fl (80.0-96.0); MONO % 8.8 % (0.0-5.0); NEUTROPHILS # 6.9 10^3/uL (1.5-8.5); NEUTROPHILS % 64.3 % (36.0-66.0); PLATELET COUNT, AUTOMATED 429 10^3/uL (150-450); RED BLOOD COUNT 4.92 10^6/uL (4.00-5.40); WHITE BLOOD COUNT 10.8 10^3/uL (4.0-10.0)
[2020-08-29 08:21] LABS: BLOOD UREA NITROGEN 14 MG/DL (7-18); CALCIUM LEVEL 9.3 MG/DL (8.8-10.2); CARBON DIOXIDE LEVEL 28 MEQ/L (21-32); CHLORIDE LEVEL 101 MEQ/L (98-107); CREATININE FOR GFR 0.39 MG/DL (0.55-1.30); GLOMERULAR FILTRATION RATE > 60.0 (>45); GLUCOSE, FASTING 109 MG/DL (70-100); MAGNESIUM LEVEL 2.6 MG/DL (1.8-2.4); POTASSIUM SERUM 4.8 MEQ/L (3.5-5.1); SODIUM LEVEL 138 MEQ/L (136-145)
[2020-08-29] MEDS: METOPROLOL TART 25 MG TABLET PO SCH (09:00)
[2020-08-29] MEDS: NYSTATIN 100,000 UNITS/GM TOPICAL PWD 15 GM TOP SCH ×2 (09:22→21:24)
[2020-08-29] MEDS: oxyBUTYnin 5 MG TAB PO SCH ×2 (09:22→21:23)
[2020-08-29] MEDS: BACLOFEN 10 MG TAB PO SCH ×4 (09:22→21:23)
--- NOTE | 2020-08-29 09:52 | CR ---
INFECTIOUS DISEASE CONSULTATION DATE: 08/28/2020 REASON FOR CONSULTATION: Asked for consultation by Dr. Rascon for evaluation of recurrent urinary tract infection (UTI) versus asymptomatic bacteriuria. HISTORY OF PRESENT ILLNESS: Gem is a 65-year-old female who was transferred from [facility] for urinary tract infection with pseudomonas and need for a gastrostomy (G) tube. The patient was found to have COVID on August 11, 2020 that was not treated. She presented to [facility] emergency room (ER) with burning on urination on August 15, 2020. She has a chronic Borrero catheter. She was treated with ceftriaxone for a proteus urinary tract infection. On August 24, 2020, she had another urinary culture done that had pseudomonas and she was switched to cefepime. The patient was transferred due to failure to thrive and in need for G tube. She has a nasogastric (NG) tube in place and is getting tube feeds through the NG tube while waiting to have a percutaneous endoscopic gastrostomy (PEG) tube placed. She has no chest pain, shortness of breath, palpitations, nausea, vomiting, abdominal pain or diarrhea. Her caregiver is her sister Raquel, telephone . Patient is getting worse from her multiple sclerosis standpoint and she is eating very poorly, but she is coherent and is able to give me a good history. She has had weight loss since April 2020. MEDICAL HISTORY: 1. Multiple sclerosis. She has been bed-bound since at least 20 years, has not walked since the 1970s. She was diagnosed when she was 21 years old. She was a functional quadriplegia. 2. Obstructive sleep apnea, not on continuous positive airway pressure (CPAP). 3. Hypothyroidism. 4. Neurogenic bladder requiring Borrero catheter. 5. Recurrent urinary tract infection and asymptomatic bacteriuria. 6. Anxiety/depression. 7. Nephrolithiasis. 8. Constipation. 9. History of fecal impaction. 10. Osteoporosis. 11. Gastroesophageal reflux disease. SURGICAL HISTORY: 1. Removal of upper teeth. 2. Tubal ligation. SOCIAL HISTORY: She was . She has two children. She is now in the half-way. Her of a heart attack in his early 50s. She quit smoking. Denies any sick contacts. She lives at [facility]. She was a banker. MEDICATIONS: - linezolid 600 mg by mouth twice a day - cefepime 2 g IV every 8 hours, currently day #4; she previously received ceftriaxone at [facility]. - baclofen 10 mg by mouth four times a day - Senokot two tablets by mouth at bedtime - Robitussin as needed - Milk of Magnesia as needed - hydrocodone as needed - Tylenol as needed LABORATORY DATA: White count was 8.8 on admission, currently is 10.8, hemoglobin 11.1, hematocrit 38.1, platelets 450, 59% neutrophils, 27% lymphocytes, 10% monocytes. Erythrocyte sedimentation rate (ESR) 45. Sodium 137, potassium 4.4, chloride 103, bicarbonate 33, BUN 16, creatinine 0.41, glucose 99, calcium 9, magnesium 2.5. C-reactive protein 0.69, procalcitonin 0.09. Urinalysis had 20 white cells, 8 red cells, moderate amount of yeast. COVID-19 PCR was still positive on August 27, 2020. Methicillin-resistant Staphylococcus aureus (MRSA) PCR was negative. Urine culture has carbapenem-resistant Enterobacteriaceae (CRE) on August 25, 2020, susceptible to linezolid, 100,000. Blood cultures, two sets, no growth after 72 hours. IMAGING DATA: Chest x-ray showed chronic changes, questionable left perihilar and bibasilar early infiltrate. No discreet focal consolidation or effusion. This is a portable AP chest. Brain MRI done on August 25, 2020 shows extensive white matter changes typical of multiple sclerosis. No signs of active demyelination. Abdominal x-ray showed nonspecific large and small bowel air loops without dilatation, moderate stool in her rectum and rectal sigmoid. PHYSICAL EXAMINATION: She is a pleasant female, alert, oriented times three. She is able to give me a good history. She currently does not complain of any urinary symptoms, no dysuria. She has a Borrero catheter draining clear light yellow urine. There is no sediment. She has a NG tube in place. HEART: Normal S1, S2. No murmurs, rubs or gallops appreciated. LUNGS: Clear. No wheezes, rales or rhonchi. ABDOMEN: Soft, nontender. No hepatosplenomegaly. EXTREMITIES: No edema. Emaciated, very thin. Multiple contractures of upper and lower extremities. She is not able to extend her legs or her arms. SKIN: She has seborrhea of the face with a malar rash. Mild erythema in both groin areas. There is poor dentition. Oropharynx clear with no thrush. NECK: Supple. No jugular venous distention (JVD). No adenopathy. IMPRESSION: This is a 65-year-old female with neurogenic bladder from multiple sclerosis who has had recurrent episodes of urinary tract infection treated versus bacteriuria. Patient currently is asymptomatic. She has been treated for Proteus urinary tract infection at [facility]. She is now receiving cefepime for the last four days for pseudomonas and now linezolid was added for VRE. Patient is not symptomatic and these do not need to be treated. She had COVID-19 diagnosed on August 11, 2020 and therefore, she cannot have surgery until she is COVID-19 negative PCR. PLAN: 1. For anorexia, she could be fed through an nasogastric tube until a G tube could be placed as an elective surgery. 2. Discontinue IV cefepime. 3. Discontinue linezolid. 4. Nystatin powder to the groin. She has mild erythema and moisture in that area. Urinalysis has yeast, probably from candidiasis. Case has been discussed with Dr. Rascon to discontinue all antibiotics. The G tube could be placed as an elective procedure as an outpatient once she is COVID negative.
--- NOTE | 2020-08-29 19:12 | IPN ---
PROGRESS NOTE DATE: 08/29/2020 Gem seems to be doing well. She wanted me to put the TV on for her. She has an nasogastric (NG) tube for feeding. She denies any dysuria or hematuria. She has a Borrero catheter. She is not complaining of any urinary symptoms. She is afebrile. Temperature is 97.6, pulse 93, respirations 16, blood pressure 98/61, oxygen saturation 96% on room air. HEART: Normal S1, S2. No murmurs. LUNGS: Clear. No wheezes, rales, or rhonchi. ABDOMEN: Soft, nontender. Catheter in place with light yellow urine. EXTREMITIES: Severe contractures of the hands and feet. Thin, emaciated. Hands with very long nails that are thick, onychomycotic, and digging into the palms of her hands, which are concerning to cause some ulceration of the hand. Urine culture had vancomycin-resistant enterococci (VRE) 100,000. Blood cultures are negative. IMPRESSION: 1. COVID-19 diagnosed August 11. Patient currently asymptomatic. 2. History of recurrent urinary tract infection with Borrero catheter. Patient was treated for Proteus with Rocephin. Then she was switched to cefepime for Zosyn yesterday. She received one dose of linezolid for VRE. I discontinued all her antibiotics, as we are just treating cultures and not symptoms. Patient currently has no fever, no white count, and clinically doing well. C-reactive protein (CRP) 0.69, procalcitonin 0.09. 3. Failure to thrive with anorexia and difficulty eating. Patient is being fed through a gastrostomy (G) tube. PLAN: Keep off antibiotics unless febrile or symptomatic. Infectious disease signing off. Patient just waiting for G-tube placement once cleared from a COVID standpoint.
[2020-08-29] MEDS: BISACODYL 5 MG TAB PO SCH (21:00)
[2020-08-29] MEDS: SENOKOT S TAB PO SCH (21:23)
[2020-08-29 22:00] VITALS: BP 114/63
[2020-08-30] MEDS: LEVOTHYROXINE 112MCG TABLET (0.112MG) PO SCH (05:31)
[2020-08-30 06:00] VITALS: BP 113/64
[2020-08-30 06:49] LABS: BASO % 0.3 % (0.0-1.0); EOS # 0.5 10^3/uL (0.0-0.5); EOS % 3.9 % (0.0-3.0); HEMATOCRIT 38.8 % (36.0-47.0); HEMOGLOBIN 11.3 g/dl (12.0-15.5); LYMPH # 2.3 10^3/uL (1.5-5.0); MEAN CORPUSCULAR HEMOGLOBIN 23.8 pg (27.0-33.0); MEAN CORPUSCULAR HGB CONC 29.1 g/dl (32.0-36.5); MEAN CORPUSCULAR VOLUME 81.7 fl (80.0-96.0); MONO # 0.9 10^3/uL (0.0-0.8); MONO % 8.2 % (0.0-5.0); NEUTROPHILS # 7.6 10^3/uL (1.5-8.5); NEUTROPHILS % 66.8 % (36.0-66.0); PLATELET COUNT, AUTOMATED 387 10^3/uL (150-450); RED BLOOD COUNT 4.75 10^6/uL (4.00-5.40); WHITE BLOOD COUNT 11.4 10^3/uL (4.0-10.0)
[2020-08-30 07:11] LABS: BLOOD UREA NITROGEN 38 MG/DL (7-18); CALCIUM LEVEL 9.5 MG/DL (8.8-10.2); CARBON DIOXIDE LEVEL 31 MEQ/L (21-32); CHLORIDE LEVEL 103 MEQ/L (98-107); CREATININE FOR GFR 0.42 MG/DL (0.55-1.30); GLOMERULAR FILTRATION RATE > 60.0 (>45); GLUCOSE, FASTING 144 MG/DL (70-100); MAGNESIUM LEVEL 2.3 MG/DL (1.8-2.4); POTASSIUM SERUM 4.4 MEQ/L (3.5-5.1); SODIUM LEVEL 138 MEQ/L (136-145)
[2020-08-30] MEDS ORDERED: MIRALAX *UNIT DOSE* 17GM PACKET PO SCH (09:00)
[2020-08-30] MEDS: oxyBUTYnin 5 MG TAB PO SCH (10:00)
[2020-08-30] MEDS: METOPROLOL TART 25 MG TABLET PO SCH (10:01)
[2020-08-30] MEDS: BACLOFEN 10 MG TAB PO SCH (10:01)
[2020-08-30] MEDS: NYSTATIN 100,000 UNITS/GM TOPICAL PWD 15 GM TOP SCH ×2 (10:02→21:36)
[2020-08-30] MEDS ORDERED: MOM 30ML SUSPENSION UDC NG PRN (12:30)
[2020-08-30] MEDS ORDERED: MIRALAX *UNIT DOSE* 17GM PACKET NG PRN (12:30)
[2020-08-30] MEDS: BACLOFEN 10 MG TAB NG SCH ×3 (14:06→21:35)
--- NOTE | 2020-08-30 14:17 | CR ---
CONSULTATION DATE: 08/30/2020 REASON FOR CONSULTATION: Decubitus ulcer. HISTORY OF PRESENT ILLNESS: Patient is a 65-year-old female patient with failure to thrive and multiple sclerosis (MS). She was admitted to the hospital as a transfer from [facility] for a urinary tract infection. She also was found to be positive for COVID on August 11; however, she is not required any intervention for that. Repeat testing has been positive as well, but she has been completely asymptomatic. She is waiting on admission to longterm; however, they have to wait until her COVID test become negative until they are able to accept her. At this point, I was asked to evaluate for a decubitus ulcer. She has a history of decubitus ulcers. They are stable currently, stage III over the right ischial tuberosity. There is also a small stage II over the sacrum. No current signs of infection, but there is some necrotic tissue there; therefore, I was asked to evaluate. Patient is unable to answer questions at this time. She is awake and alert but is answering questions inappropriately. She is only alert to person at this time. MEDICAL HISTORY: 1. Multiple sclerosis. 2. Obstructive sleep apnea. 3. Hypothyroidism. 4. Neurogenic bladder. 5. Anemia. 6. Anxiety. 7. Depression. 8. Nephrolithiasis. 9. Constipation. 10. Osteoporosis. 11. Gastroesophageal reflux disease (GERD). SURGICAL HISTORY: 1. Removal of upper teeth. 2. Dental surgery. 3. Tubal ligation. ALLERGIES: CIPRO. MEDICATIONS: Please see medical record. REVIEW OF SYSTEMS: Unable to fully obtain at this time; however, denies any pains. PHYSICAL EXAMINATION: GENERAL: Patient is awake and alert. VITAL SIGNS: Temperature 97.2, pulse 102, respirations 16, blood pressure 113/64, pulse ox 95% on room air. HEENT: Pupils equally round and reactive to light and accommodation. HEART: S1, S2, regular rate and rhythm. LUNG: Clear to auscultation bilaterally. ABDOMEN: Soft, nontender, nondistended. SKIN: There is a stage III-IV decubitus ulcer over the right ischial tuberosity. There appears to be visible bone in the wound; however, there is some overlying slough tissue and makes it difficult to fully identify at this time, but I am fairly certain that that is visible bone that I am seeing. Over her sacrum there is also an unstageable sacral decubitus ulcer that appears to be likely stage II, but, again, there is an eschar over top of that as well. LABORATORY DATA: White count 11.4, hemoglobin 11.3, platelets 387. Potassium 4.4, creatinine 0.42. IMAGING: Abdomen x-ray shows nonspecific large and small bowel air-filled loops without dilation. ASSESSMENT AND PLAN: Patient is a 65-year-old female with multiple sclerosis (MS), failure to thrive, currently with pressure sores, one on her right ischial tuberosity, one over the sacrum. Likely both are at least a stage II-III. The one on the ischial tuberosity is likely a stage IV. Recommendation at this time is to proceed with bedside debridement. Phone consent was obtained by myself and the nurse with the patient's proxy, which is her sister, and we will plan for the procedure at the bedside first thing tomorrow morning.
[2020-08-30] MEDS ORDERED: guaiFENesin SYRUP 200 MG/10 ML UDC NG PRN (15:15)
[2020-08-30] MEDS: MIRALAX *UNIT DOSE* 17GM PACKET NG SCH (19:40)
[2020-08-30] MEDS ORDERED: BISACODYL 5 MG TAB NG SCH (21:00)
[2020-08-30] MEDS ORDERED: SENOKOT S TAB NG SCH (21:00)
[2020-08-30] MEDS: SENOKOT S TAB NG SCH (21:34)
[2020-08-30] MEDS: oxyBUTYnin 5 MG TAB NG SCH (21:35)
[2020-08-30] MEDS: ACETAMINOPHEN TAB 650MG DOSE (2X325MG) NG PRN (21:35)
[2020-08-31] MEDS: NORCO, ANEXSIA 5/325MG TABLET (HYDROcodone/ACETAMINOPHEN) FT PRN ×2 (05:33→17:46)
[2020-08-31] MEDS: LEVOTHYROXINE 112MCG TABLET (0.112MG) NG SCH (05:33)
[2020-08-31 06:00] VITALS: BP 120/69
[2020-08-31 06:23] LABS: BASO % 0.2 % (0.0-1.0); EOS # 0.5 10^3/uL (0.0-0.5); EOS % 3.3 % (0.0-3.0); HEMATOCRIT 38.7 % (36.0-47.0); HEMOGLOBIN 11.3 g/dl (12.0-15.5); LYMPH # 3.1 10^3/uL (1.5-5.0); LYMPH % 18.9 % (24.0-44.0); MEAN CORPUSCULAR HEMOGLOBIN 24.1 pg (27.0-33.0); MEAN CORPUSCULAR HGB CONC 29.2 g/dl (32.0-36.5); MEAN CORPUSCULAR VOLUME 82.5 fl (80.0-96.0); MONO # 1.5 10^3/uL (0.0-0.8); MONO % 9.3 % (0.0-5.0); NEUTROPHILS % 67.4 % (36.0-66.0); PLATELET COUNT, AUTOMATED 426 10^3/uL (150-450); RED BLOOD COUNT 4.69 10^6/uL (4.00-5.40); WHITE BLOOD COUNT 16.4 10^3/uL (4.0-10.0)
[2020-08-31 06:47] LABS: BLOOD UREA NITROGEN 39 MG/DL (7-18); CALCIUM LEVEL 9.1 MG/DL (8.8-10.2); CARBON DIOXIDE LEVEL 30 MEQ/L (21-32); CHLORIDE LEVEL 103 MEQ/L (98-107); CREATININE FOR GFR 0.38 MG/DL (0.55-1.30); GLOMERULAR FILTRATION RATE > 60.0 (>45); GLUCOSE, FASTING 118 MG/DL (70-100); MAGNESIUM LEVEL 2.3 MG/DL (1.8-2.4); POTASSIUM SERUM 4.4 MEQ/L (3.5-5.1); SODIUM LEVEL 141 MEQ/L (136-145)
[2020-08-31] MEDS: SENOKOT S TAB NG SCH ×2 (08:03→20:40)
[2020-08-31] MEDS: oxyBUTYnin 5 MG TAB NG SCH ×2 (08:04→20:40)
[2020-08-31] MEDS: MIRALAX *UNIT DOSE* 17GM PACKET NG SCH (08:04)
[2020-08-31] MEDS: BACLOFEN 10 MG TAB NG SCH ×4 (08:04→20:40)
[2020-08-31] MEDS: METOPROLOL TART 25 MG TABLET NG SCH (08:04)
[2020-08-31] MEDS: NYSTATIN 100,000 UNITS/GM TOPICAL PWD 15 GM TOP SCH ×2 (08:05→20:41)
--- NOTE | 2020-08-31 11:16 | IPNPDOC ---
Text Note Date of Service The patient was seen on 08/31/20. NOTE No acute events overnight. I was able to obtain consent from her sister edison gray for a bedside debridement of her pressure ulcers today. VSSAF NAD skin - right ischial tuberosity pressure ulcer and sacral pressure ulcer. both about 4cm in diameter with slough tissue in the middle A) 65 y/o female with MS, and stage 3 pressure sores on her right ischial tuberosity and sacrum. P) bedside debridement was completed today recommend air mattress because the sores look worse today than they did yesterday. will follow as needed. Renny Carlson DO VS,Alma, I+O VS, Innae, I+O Laboratory Tests 08/31/20 05:33 Vital Signs Date Time Temp Pulse Resp B/P (MAP) Pulse Ox O2 Delivery O2 Flow Rate FiO2 08/31/20 08:04 106 106/58 08/31/20 06:11 16 Room Air 08/31/20 06:00 97.1 95 08/25/20 15:30 2.0 I&O- Last 24 Hours up to 6 AM 08/31/20 06:00 Intake Total 0 ml Output Total 475 ml Balance -475 ml JAIR CARLSON DO Aug 31, 2020 11:16
--- NOTE | 2020-08-31 17:47 | RO ---
OPERATIVE NOTE DATE OF OPERATION: PREOPERATIVE DIAGNOSIS: Pressure sores. POSTOPERATIVE DIAGNOSIS: Stage III pressure sores on the right ischial tuberosity and over the sacrum. Both are Stage III measuring approximately 4 cm in diameter. PROCEDURE: Bedside debridement using sharp excisional debridement through the skin, subcutaneous tissue and fat all the way below the level of the fascia. SURGEON: Angel Luis Carlson DO RECRUITMENT INTERNSHIP: None ANESTHESIA: None ESTIMATED BLOOD LOSS: Minimal. COMPLICATIONS: None. INDICATIONS FOR PROCEDURE: The patient is a 65-year-old female with MS who presented to the hospital with failure to thrive, currently awaiting placement of a PEG tube and group home placement. During her stay, she was found to have pressure sores and recommendation was to proceed with debridement during the stay. I was able to obtain phone consent from her sister yesterday afternoon with the nurse as a witness. Risks and benefits of the procedure not limited to but including bleeding, infection, damage to surrounding structures, need for further surgery were discussed in detail and consent was obtained. DESCRIPTION OF PROCEDURE: At the bedside using a sharp curette as well as an 11 blade scalpel, I was able to sharply debride all of the necrotic skin and fatty tissue and a little bit of muscle overlying both of these wounds. Both wounds measured approximately 4 cm in diameter, one over the right ischial tuberosity and one right over top of the sacrum. Once they were debrided, they were both covered with gauze dressings. They will stay in place for a couple of hours and then the nurse will change back to a foam dressing. Also, I will place an order for an air mattress because I noticed that her wounds already looked worse today than they did 24 hours ago when I looked at them the first time. JACOB
[2020-09-01 06:00] VITALS: BP 120/62
[2020-09-01] MEDS: LEVOTHYROXINE 112MCG TABLET (0.112MG) NG SCH (06:13)
[2020-09-01 06:27] LABS: BASO # 0.1 10^3/uL (0.0-0.2); BASO % 0.3 % (0.0-1.0); EOS # 0.5 10^3/uL (0.0-0.5); HEMOGLOBIN 10.8 g/dl (12.0-15.5); LYMPH # 2.8 10^3/uL (1.5-5.0); LYMPH % 18.3 % (24.0-44.0); MEAN CORPUSCULAR HEMOGLOBIN 24.4 pg (27.0-33.0); MEAN CORPUSCULAR HGB CONC 29.2 g/dl (32.0-36.5); MEAN CORPUSCULAR VOLUME 83.5 fl (80.0-96.0); MONO # 1.6 10^3/uL (0.0-0.8); MONO % 10.2 % (0.0-5.0); NEUTROPHILS # 10.3 10^3/uL (1.5-8.5); NEUTROPHILS % 67.4 % (36.0-66.0); PLATELET COUNT, AUTOMATED 362 10^3/uL (150-450); RED BLOOD COUNT 4.43 10^6/uL (4.00-5.40); WHITE BLOOD COUNT 15.2 10^3/uL (4.0-10.0)
[2020-09-01 06:54] LABS: BLOOD UREA NITROGEN 31 MG/DL (7-18); CARBON DIOXIDE LEVEL 33 MEQ/L (21-32); CHLORIDE LEVEL 104 MEQ/L (98-107); CREATININE FOR GFR 0.38 MG/DL (0.55-1.30); GLOMERULAR FILTRATION RATE > 60.0 (>45); GLUCOSE, FASTING 130 MG/DL (70-100); MAGNESIUM LEVEL 2.3 MG/DL (1.8-2.4); POTASSIUM SERUM 4.6 MEQ/L (3.5-5.1); SODIUM LEVEL 140 MEQ/L (136-145)
[2020-09-01] MEDS: MIRALAX *UNIT DOSE* 17GM PACKET NG SCH (09:29)
[2020-09-01] MEDS: BACLOFEN 10 MG TAB NG SCH ×4 (09:30→21:00)
[2020-09-01] MEDS: oxyBUTYnin 5 MG TAB NG SCH ×2 (09:30→21:00)
[2020-09-01] MEDS: NORCO, ANEXSIA 5/325MG TABLET (HYDROcodone/ACETAMINOPHEN) FT PRN (09:31)
[2020-09-01] MEDS: SENOKOT S TAB NG SCH ×2 (09:31→21:00)
[2020-09-01] MEDS: NYSTATIN 100,000 UNITS/GM TOPICAL PWD 15 GM TOP SCH ×2 (09:32→21:00)
[2020-09-01] MEDS: METOPROLOL TART 25 MG TABLET NG SCH (09:34)
[2020-09-02] MEDS: LEVOTHYROXINE 112MCG TABLET (0.112MG) NG SCH (05:46)
[2020-09-02 06:00] VITALS: BP 145/67
[2020-09-02] MEDS: MIRALAX *UNIT DOSE* 17GM PACKET NG SCH (09:00)
[2020-09-02] MEDS: SENOKOT S TAB NG SCH ×3 (09:00→20:49)
[2020-09-02] MEDS: BACLOFEN 10 MG TAB NG SCH ×4 (09:12→20:48)
[2020-09-02] MEDS: METOPROLOL TART 25 MG TABLET NG SCH (09:13)
[2020-09-02] MEDS: oxyBUTYnin 5 MG TAB NG SCH ×2 (09:13→20:47)
[2020-09-02] MEDS: NYSTATIN 100,000 UNITS/GM TOPICAL PWD 15 GM TOP SCH ×2 (09:14→20:47)
[2020-09-02 17:39] LABS: C REACTIVE PROTEIN QUANTITATIV 1.76 MG/DL (0.00-0.30)
[2020-09-02] MEDS: NORCO, ANEXSIA 5/325MG TABLET (HYDROcodone/ACETAMINOPHEN) FT PRN (17:46)
--- NOTE | 2020-09-02 19:20 | REP ---
INDICATION: Right hip decub. COMPARISON: KUB including the pelvis 08/27/2020 TECHNIQUE: AP and cross-table lateral views. FINDINGS: The bones are demineralized. Degenerative change are present. There is no evidence of acute fracture, dislocation, or subluxation. There is no significant change compared to the prior exam. IMPRESSION: No evidence of acute abnormality. <Electronically signed by Daniele Fairchild > 09/02/201915
[2020-09-02] MEDS: PIPERACILLIN/TAZOBACTAM SOD 3.375 GM in D5W MINI-BAG PLUS 50 ML IV SCH (20:49)
[2020-09-02 22:00] VITALS: BP 126/70
[2020-09-03] VITALS (10 sets, daily range): BP systolic 122–142; BP diastolic 69–83
[2020-09-03] MEDS: PIPERACILLIN/TAZOBACTAM SOD 3.375 GM in D5W MINI-BAG PLUS 50 ML IV SCH ×4 (02:35→20:24)
[2020-09-03] MEDS: LEVOTHYROXINE 112MCG TABLET (0.112MG) NG SCH (05:33)
[2020-09-03] MEDS: METOPROLOL TART 25 MG TABLET NG SCH (08:22)
[2020-09-03] MEDS: BACLOFEN 10 MG TAB NG SCH ×4 (09:00→20:24)
[2020-09-03] MEDS: MIRALAX *UNIT DOSE* 17GM PACKET NG SCH (09:00)
[2020-09-03] MEDS: oxyBUTYnin 5 MG TAB NG SCH ×2 (09:00→20:24)
[2020-09-03] MEDS: SENOKOT S TAB NG SCH ×2 (09:00→20:25)
[2020-09-03] MEDS ORDERED: LIDOCAINE 2% 100MG/5ML SDV (FOR ANES.) As Ordered ONE (09:01)
[2020-09-03] MEDS ORDERED: propofoL 200 MG/20 ML VIAL As Ordered ONE (09:01)
[2020-09-03] MEDS ORDERED: MIDAZOLAM INJ 2MG/2ML VIAL (J2250 PER 1MG) As Ordered ONE (09:01)
--- NOTE | 2020-09-03 09:13 | IPNPDOC ---
Text Note Date of Service The patient was seen on 09/03/20. NOTE No acute events overnight. Plan is for PEG tube this am in the OR. VSSAF NAD A) 65 y/o female with MS, and bed sores, and dysphagia with FTT P) OR for PEG today consent was obtained by her sister no changes to H+P Renny Carlson DO VS,Fishbone, I+O VS, Fishbone, I+O Vital Signs Date Time Temp Pulse Resp B/P (MAP) Pulse Ox O2 Delivery O2 Flow Rate FiO2 09/03/20 08:22 99 136/79 09/03/20 06:00 96.7 18 100 Room Air I&O- Last 24 Hours up to 6 AM 09/03/20 06:00 Intake Total 1310 ml Output Total 900 ml Balance 410 ml JAIR CARLSON DO Sep 03, 2020 09:13
--- NOTE | 2020-09-03 09:29 | IPN ---
PROGRESS NOTE DATE: 09/02/2020 SUBJECTIVE: Gem is going for a G tube tomorrow. I was asked to evaluate by Dr. Carlson regarding her right ischial decubitus ulcer and sacral decubitus ulcer. The patient was seen with the nurse at the bedside. She had no complaints. She denied any fevers or chills. No pain. No nausea, vomiting, or diarrhea. She has an NG tube in place, tolerating tube feeds without residual. She has remained afebrile but her white count has remained elevated. PHYSICAL EXAMINATION: Vital signs: Temperature 97.5, pulse 91, respirations 18, blood pressure 126/70, O2 saturation 97% on room air. Heart: Normal S1, S2. No murmurs. Lungs are clear. No wheezes, rales, or rhonchi. Abdomen is soft, nontender. NG tube in place. Extremities: Emaciated, thin with contractures both arms and legs. Right hip decubitus measuring about 4 x 2 cm with surrounding erythema and yellow fibrinous tissue at the base of the ulcer without granulation tissue. There is no tenderness to touch. The hip decubitus is over the ischial tuberosity and has exposed bone. There is a smaller sacral decubitus measuring about 2 x 2 cm. LABS: Sodium 140, potassium 4.6, chloride 104, bicarb 33, BUN 31, creatinine 0.38, glucose 130, calcium 9, magnesium 2.3, CRP 1.76. White count 15.2. Yesterday it was 16.4. Hemoglobin 10.8, hematocrit 37, platelets 362, 67% neutrophils, 18% lymphocytes, 10% monocytes. ESR on 08/28/2020 was 45. One culture obtained by the nurse is pending. X-ray of right hip ordered this afternoon by myself showed no evidence of acute fracture or osteomyelitis. There are degenerative changes present. IMPRESSION: 1. Recurrent urinary tract infection. Had been treated with multiple courses of antibiotics, most recently linezolid and cefepime. These were all discontinued on August 28. The patient has been off antibiotics for the past five days and her white count has continued to increase. 2. Decubitus ulcers of the sacrum and ischium with elevated white count. X-ray does not show any evidence of osteomyelitis but due to the fact that she has exposed bone makes osteomyelitis very likely. We will obtain MRI of the hip tomorrow. The patient will be started on IV Zosyn while waiting for results of MRI. 3. Failure to thrive. Tolerating tube feeds. The patient is scheduled for PEG tube tomorrow. 4. COVID. The patient has done well without any symptoms. PLAN: 1. IV Zosyn 3.375 gm every 6 hours. 2. MRI tomorrow. 3. The patient can go ahead with G tube as scheduled. 4. Consult Dr. Nicholas regarding wound care for right hip decubitus and sacral decubitus. 5-Depending on MRI findings and wound culture, we will decide on antibiotic choices. MTDD
[2020-09-03] MEDS ORDERED: PHENYLephrine 500MCG 5ML (100MCG/ML) SYRINGE As Ordered ONE (10:04)
[2020-09-03] MEDS ORDERED: LIDOCAINE 1% MDV 20ML VIAL SC ONE (10:13)
[2020-09-03] MEDS ORDERED: LR 1,000 ML IV SCH (10:30)
[2020-09-03] MEDS ORDERED: ONDANSETRON 4MG/2ML VIAL IV PRN (10:30)
[2020-09-03] MEDS ORDERED: fentaNYL 100 MCG/2 ML INJECTION (J3010) IV PRN (10:30)
--- NOTE | 2020-09-03 11:08 | RO ---
OPERATIVE NOTE DATE OF OPERATION: 09/03/2020 PREOPERATIVE DIAGNOSIS: Dysphagia. POSTOPERATIVE DIAGNOSIS: Dysphagia. PROCEDURE: Esophagogastroscopy with placement of percutaneous endoscopic gastrostomy tube using a 20 Turkish tube. SURGEON: Angel Luis Carlson DO. CARE MANAGER CNA: None. ANESTHESIA: IV sedation. COMPLICATIONS: None. INDICATIONS FOR PROCEDURE: The patient is a 65-year-old female with MS currently with dysphagia and failure to thrive. Recommendation was placement of a PEG tube. Risks and benefits of the procedure not limited to, but including bleeding, infection, perforation, damage to surrounding structures, and the need for further surgery were discussed in detail with the patient. She gave me verbal consent and I was able to obtain phone consent as well from her sister. DESCRIPTION OF PROCEDURE: The patient was brought back to operating room one. After satisfactory sedation, the abdomen was sterilely prepped and draped with chlorhexidine. Next, a time-out was done to confirm the proper patient and the proper procedure. Following that, the upper endoscope was passed down the esophagus into the stomach. I was able to transilluminate easily through the abdominal wall, as well as palpate. Next, local was injected into the skin and subcutaneous tissue overlying the stomach. An 11-blade scalpel was used to make an 8-mm incision. The needle was then passed inside of the stomach followed by a guidewire. The guidewire was grabbed with a snare and brought out through the mouth. The 20 Turkish tube was then passed over top of the guidewire and brought out through the abdominal wall. The guidewire was removed. The tube was cut to length. The bumper was put in place. The endoscope was then passed back down inside again to confirm proper placement and that there was no bleeding, which there was not. The scope was then removed. The dressing was applied thus ending the procedure.
[2020-09-03] MEDS: NYSTATIN 100,000 UNITS/GM TOPICAL PWD 15 GM TOP SCH ×2 (11:58→20:25)
--- NOTE | 2020-09-03 16:59 | IPNPDOC ---
Text Note Date of Service The patient was seen on 09/03/20. NOTE SUBJECTIVE: She complains of pain in her nose and back pain. Patient stated having elevated WBC even after being off antibiotics for 5 days. Her right ischial decubiti is deep and bone is exposed. Though hip xray did not show any OM she probably has it. She was restarted on Antibiotics on 09/02/20. She Had a PEG tube placement today. Her status was changed to Acute. She will be getting a n MRI of the hip bone and an advanced wound care consult for her Decubitii. No fever or chills. PHYSICAL EXAMINATION: VITAL SIGNS: Please see below. GENERAL:cachectic bitemporal wasting slow to speak but comprehensible, awake and alert and understands and follows commands. HEENT: no JVD dry mm NG tube in left nares CARDIOVASCULAR: S1S2 RRR, no murmur or gallop RESPIRATORY: Overall diminished with bibasal crackles. ABDOMINAL: soft nt nd +bs chronic torres BACK: Right ischial tuberosity decubiti stage 4 4 cm x 4 cm. Right sacal debubiti 2 cm x 2 cm stage 2. EXTREMITIES: contracted b/l UE, LE atrophy b/l, foot drop. No edema. LABORATORY DATA, IMAGING STUDIES, MICROBIOLOGY: Please see below. Radiology: MRI BRAIN 08/25/20 1. Extensive white matter changes typical of multiple sclerosis. No signs of active demyelination. 2. No acute findings. Electronically signed by: Bob Arzate On 08/25/2020 22:22:39 PM ASSESSMENT AND PLAN: 65y/o F with chronic progressive MS with functional quadriplegia, neurogenic bladder w chronic torres catheter, H/O SADI, Hypothyroidism, anxiety/depression, anemia of chronic disease, severe protein calorie malnutrition BMI 17.1 w cachexia and muscle atrophy / bitemporal wasting transferred from [facility] where she presented with Sepsis felt to be due to Pseudomonas UTI, treated with Cefepime. She was also COVID positive from 08/11/20. She was also having dysphagia with failure to thrive so needed a PEG tube placement for Pseudomonas for feeding tube placement. New Leucocytosis from 08/30/20 possible Right ischial tuberosity OM Has decubitus ulcer there with bone exposed Pending MRI Hip started on zosyn 09/02/20 ID following. Right ischial tuberosity and right sacral decubitii ulcers. Stage IV pressure ulcer on the right ischial tuberosity with bone exposed about 4x 4 cm Stage 2 over the sacrum 2cm x 2cm S/P incision and debridement on 08/31/[address] Carlson. Wound care consult. Recurrent UTI due to Chronic indwelling Torres catheter/ Neurogenic bladder- MS Most recent cultures with VRE and psuedomonas treated with Cefepime and linezolid finished on 08/28/20 Dysphagia s/p PEG tube placement on 09/03/20 COVID-19 infection Diagnosed on 08/11/2020; repeat on 08/21/2020 positive CTA at [facility] on 08/14 was consistent with COVID-like changes Out of infective period at present. Severe protein calorie malnutrition Was on NG tube feeds Now has PEG tube feeding to start Multiple sclerosis (20 years; bed bound; Functional quadriplegia) with contractures and muscle atrophy, Neurogenic bladder turn q2hrs and reposition. cough and incentive spirometry MRI Brain: no acute changes indicative of exacerbation Baclofen for muscle spasm, Oxybutynin for bladder spasms, [place] chronic pain. HTn metoprolol. SADI resolved due to weight loss. Hypothyroidism synthroid Anemia due to chronic disease Anxiety / Depression chronic Constipation / History of fecal impaction bowel regimen Osteoporosis chronic GERD PPI DVT prophylaxis Heparin Code status: DNR / Trial intubation (non-invasive) healthcare proxy, Raquel at [phone] VS,Fishbone, I+O VS, Fishbone, I+O Vital Signs Date Time Temp Pulse Resp B/P (MAP) Pulse Ox O2 Delivery O2 Flow Rate FiO2 09/03/20 14:00 97.5 85 18 124/71 (88) Room Air 09/03/20 12:35 98 I&O- Last 24 Hours up to 6 AM 09/03/20 07:00 Intake Total 1310 ml Output Total 900 ml Balance 410 ml KANDACE HERNANDEZ MD Sep 03, 2020 16:52
[2020-09-03] MEDS: NORCO, ANEXSIA 5/325MG TABLET (HYDROcodone/ACETAMINOPHEN) FT PRN (20:35)
[2020-09-04] MEDS: PIPERACILLIN/TAZOBACTAM SOD 3.375 GM in D5W MINI-BAG PLUS 50 ML IV SCH ×4 (01:12→21:12)
[2020-09-04 02:00] VITALS: BP 144/90
[2020-09-04 06:00] VITALS: BP 122/71
[2020-09-04] MEDS: LEVOTHYROXINE 112MCG TABLET (0.112MG) NG SCH (06:02)
--- NOTE | 2020-09-04 07:41 | IPNPDOC ---
Text Note Date of Service The patient was seen on 09/04/20. NOTE SUBJECTIVE: She complains of back pain. No fever or chills. PEG tube in place. She will have an MRI and a wound care consult today. Labs pending from this am. PHYSICAL EXAMINATION: VITAL SIGNS: Please see below. GENERAL:cachectic bitemporal wasting slow to speak but comprehensible, awake and alert and understands and follows commands. HEENT: no JVD dry mm NG tube in left nares CARDIOVASCULAR: S1S2 RRR, no murmur or gallop RESPIRATORY: Overall diminished with bibasal crackles. ABDOMINAL: soft non tender, non distended. +bs chronic torres, PEG tube in place. BACK: Right ischial tuberosity decubitii stage 4, 4 cm x 4 cm. Right sacral debubiti 2 cm x 2 cm stage 2. EXTREMITIES: contracted b/l UE, LE atrophy b/l, foot drop. No edema. LABORATORY DATA, IMAGING STUDIES, MICROBIOLOGY: Please see below. Radiology: MRI BRAIN 08/25/20 1. Extensive white matter changes typical of multiple sclerosis. No signs of active demyelination. 2. No acute findings. Electronically signed by: Bob Arzate On 08/25/2020 22:22:39 PM ASSESSMENT AND PLAN: 65y/o F with chronic progressive MS with functional quadriplegia, neurogenic bladder w chronic torres catheter, H/O SADI, Hypothyroidism, anxiety/depression, anemia of chronic disease, severe protein calorie malnutrition BMI 17.1 w cachexia and muscle atrophy / bitemporal wasting transferred from [facility] where she presented with Sepsis felt to be due to Pseudomonas UTI, treated with Cefepime. She was also COVID positive from 08/11/20. She was also having dysphagia with failure to thrive so needed a PEG tube placement for Pseudomonas for feeding tube placement. New Leucocytosis from 08/30/20 possible Right ischial tuberosity OM Has decubitus ulcer there with bone exposed, Xray neg. Pending MRI Hip started on zosyn 09/02/20 ID following. Right ischial tuberosity and right sacral decubitii ulcers. Stage IV pressure ulcer on the right ischial tuberosity with bone exposed about 4x 4 cm Stage 2 over the sacrum 2cm x 2cm S/P incision and debridement on 08/31/[address] Carlson. Wound care consult. Recurrent UTI due to Chronic indwelling Torres catheter/ Neurogenic bladder- MS Most recent cultures with VRE and pseudomonas treated with Cefepime and linezolid finished on 08/28/20 Dysphagia s/p PEG tube placement on 09/03/20 COVID-19 infection Diagnosed on 08/11/2020; repeat on 08/21/2020 positive CTA at [facility] on 08/14 was consistent with COVID-like changes Out of infective period at present. Severe protein calorie malnutrition Was on NG tube feeds Now has PEG tube feeding to start Multiple sclerosis (20 years; bed bound; Functional quadriplegia) with contractures and muscle atrophy, Neurogenic bladder turn q2hrs and reposition. cough and incentive spirometry MRI Brain: no acute changes indicative of exacerbation Baclofen for muscle spasm, Oxybutynin for bladder spasms, [place] chronic pain. HTn metoprolol. SADI resolved due to weight loss. Hypothyroidism synthroid Anemia due to chronic disease Anxiety / Depression chronic Constipation / History of fecal impaction bowel regimen Osteoporosis chronic GERD PPI DVT prophylaxis Heparin Code status: DNR / Trial intubation (non-invasive) healthcare proxy, Raquel at [phone] VS,Fishbone, I+O VS, Fishbone, I+O Vital Signs Date Time Temp Pulse Resp B/P (MAP) Pulse Ox O2 Delivery O2 Flow Rate FiO2 09/04/20 06:00 98.1 88 18 122/71 (88) 95 09/03/20 21:05 Room Air I&O- Last 24 Hours up to 6 AM 09/04/20 06:00 Intake Total 545 ml Output Total 500 ml Balance 45 ml KANDACE HERNANDEZ MD Sep 04, 2020 07:41
[2020-09-04] MEDS: MIRALAX *UNIT DOSE* 17GM PACKET NG SCH (08:26)
[2020-09-04] MEDS: SENOKOT S TAB NG SCH ×2 (08:26→21:11)
[2020-09-04] MEDS: oxyBUTYnin 5 MG TAB NG SCH ×2 (08:35→21:12)
[2020-09-04] MEDS: BACLOFEN 10 MG TAB NG SCH ×4 (08:36→21:12)
[2020-09-04] MEDS: METOPROLOL TART 25 MG TABLET NG SCH (08:39)
[2020-09-04] MEDS: NYSTATIN 100,000 UNITS/GM TOPICAL PWD 15 GM TOP SCH ×2 (08:40→21:11)
[2020-09-04 09:13] LABS: BASO % 0.4 % (0.0-1.0); EOS # 0.4 10^3/uL (0.0-0.5); EOS % 3.6 % (0.0-3.0); HEMATOCRIT 33.1 % (36.0-47.0); HEMOGLOBIN 9.6 g/dl (12.0-15.5); LYMPH # 1.7 10^3/uL (1.5-5.0); LYMPH % 16.1 % (24.0-44.0); MEAN CORPUSCULAR HEMOGLOBIN 24.6 pg (27.0-33.0); MEAN CORPUSCULAR VOLUME 84.9 fl (80.0-96.0); MONO # 1.1 10^3/uL (0.0-0.8); MONO % 10.2 % (0.0-5.0); NEUTROPHILS # 7.4 10^3/uL (1.5-8.5); PLATELET COUNT, AUTOMATED 257 10^3/uL (150-450); WHITE BLOOD COUNT 10.7 10^3/uL (4.0-10.0)
[2020-09-04 09:25] LABS: BLOOD UREA NITROGEN 23 MG/DL (7-18); CALCIUM LEVEL 8.6 MG/DL (8.8-10.2); CARBON DIOXIDE LEVEL 30 MEQ/L (21-32); CHLORIDE LEVEL 101 MEQ/L (98-107); CREATININE FOR GFR 0.34 MG/DL (0.55-1.30); GLOMERULAR FILTRATION RATE > 60.0 (>45); GLUCOSE, FASTING 75 MG/DL (70-100); POTASSIUM SERUM 3.8 MEQ/L (3.5-5.1); SODIUM LEVEL 140 MEQ/L (136-145)
[2020-09-04 10:00] VITALS: BP 108/63
[2020-09-04 14:00] VITALS: BP 118/56
[2020-09-04] MEDS ORDERED: PROHANCE 279.3MG/ML 5ML VIAL As Ordered ONE (14:48)
--- NOTE | 2020-09-04 17:51 | REPVR ---
PROCEDURE INFORMATION: Exam: MR Right Lower Extremity Joint Without and With Contrast; Hip Exam date and time: 09/04/2020 3:40 PM Age: 65 years old Clinical indication: Condition or disease; Other: Decubitus ulcer right hip; Additional info: Decubitus ulcer right ip TECHNIQUE: Imaging protocol: MR of the Right lower extremity joint without and with contrast. Exam focused on the hip. Contrast material: PROHANCE; Contrast volume: 8 ml; Contrast route: INTRAVENOUS (IV); COMPARISON: CR Hip, Ap,Lat 09/02/2020 6:25 PM FINDINGS: Tubes, catheters and devices: Small amount of air in the bladder from Borrero catheter placement, with Borrero catheter balloon in the bladder. There are small bladder diverticula. The bladder is not distended, but it is also not completely collapsed. Bones and cartilage: There is a large deep right ischial ulcer which tracks down to bone at the at the ischial tuberosity. Surrounding granulation tissue and/or cellulitis. There is focal edema with increased T2/stir signal in the right ischial tuberosity at the site of exposed bone with corresponding low T1 weighted signal and overlying cortical irregularity highly suspicious for osteomyelitis. Minimal degenerative change at the inferior aspect of the sacroiliac joints. No evidence of avascular necrosis at the femoral heads. Mild degenerative change at the pubic symphysis. Joint spaces: Small bilateral hip joint effusions. Labrum: Probable small partial thickness nondisplaced right superior labral tear. Bursae: No bursal fluid collection. TENDONS: There is at least low-grade partial tearing at the origin of the right common hamstring tendon. No other tendon tear. Muscles: There is diffuse fatty muscle atrophy. Diffuse muscle edema, more pronounced in the bilateral hip short adductor musculature. Soft tissues: No drainable abscess. Bowel: There is a large amount of stool and gas in the rectosigmoid colon. There is diffuse rectal wall thickening suggesting proctitis. IMPRESSION: 1. Large deep right ischial ulcer tracking down to bone at the ischial tuberosity where there are findings highly suspicious for osteomyelitis. Adjacent granulation tissue and cellulitis. No drainable abscess. 2. At least low grade partial tearing at the origin of the right common hamstring tendon. 3. Diffuse fatty muscle atrophy and diffuse muscle edema which is more pronounced in the bilateral hip short adductor musculature. 4. Borrero catheter balloon in the bladder. Although the bladder is not distended, it is not completely collapsed. Suggest correlation with function of the Borrero catheter and whether it is clamped. 5. Large amount of stool and gas in the rectosigmoid colon with findings suggesting proctitis. 6. Probable small partial thickness nondisplaced right superior labral tear. Electronically signed by: Radha Toth On 09/04/2020 17:50:40 PM
[2020-09-04 18:00] VITALS: BP 138/78
[2020-09-04] MEDS: ACETAMINOPHEN TAB 650MG DOSE (2X325MG) NG PRN (21:12)
[2020-09-04 22:00] VITALS: BP 119/69
[2020-09-05] MEDS: PIPERACILLIN/TAZOBACTAM SOD 3.375 GM in D5W MINI-BAG PLUS 50 ML IV SCH ×4 (01:45→20:37)
[2020-09-05] MEDS: LEVOTHYROXINE 112MCG TABLET (0.112MG) NG SCH (05:29)
[2020-09-05 05:53] LABS: BASO % 0.4 % (0.0-1.0); EOS # 0.5 10^3/uL (0.0-0.5); HEMATOCRIT 32.8 % (36.0-47.0); HEMOGLOBIN 9.8 g/dl (12.0-15.5); LYMPH # 1.5 10^3/uL (1.5-5.0); LYMPH % 14.9 % (24.0-44.0); MEAN CORPUSCULAR HGB CONC 29.9 g/dl (32.0-36.5); MEAN CORPUSCULAR VOLUME 83.7 fl (80.0-96.0); MONO # 0.8 10^3/uL (0.0-0.8); MONO % 7.8 % (0.0-5.0); NEUTROPHILS % 71.3 % (36.0-66.0); PLATELET COUNT, AUTOMATED 282 10^3/uL (150-450); RED BLOOD COUNT 3.92 10^6/uL (4.00-5.40); WHITE BLOOD COUNT 9.9 10^3/uL (4.0-10.0)
[2020-09-05 06:00] VITALS: BP 129/62
[2020-09-05 06:26] LABS: BLOOD UREA NITROGEN 17 MG/DL (7-18); CALCIUM LEVEL 8.4 MG/DL (8.8-10.2); CARBON DIOXIDE LEVEL 32 MEQ/L (21-32); CHLORIDE LEVEL 102 MEQ/L (98-107); GLOMERULAR FILTRATION RATE > 60.0 (>45); GLUCOSE, FASTING 156 MG/DL (70-100); SODIUM LEVEL 140 MEQ/L (136-145)
[2020-09-05] MEDS: METOPROLOL TART 25 MG TABLET NG SCH (09:00)
[2020-09-05 10:00] VITALS: BP 124/79
[2020-09-05] MEDS: BACLOFEN 10 MG TAB NG SCH ×4 (10:00→20:37)
[2020-09-05] MEDS: SENOKOT S TAB NG SCH ×2 (10:00→20:37)
[2020-09-05] MEDS: MIRALAX *UNIT DOSE* 17GM PACKET NG SCH (10:00)
[2020-09-05] MEDS: oxyBUTYnin 5 MG TAB NG SCH ×2 (10:00→20:37)
[2020-09-05] MEDS: NYSTATIN 100,000 UNITS/GM TOPICAL PWD 15 GM TOP SCH ×2 (10:01→20:38)
[2020-09-05] MEDS: FLEET ENEMA PR SCH (10:01)
[2020-09-05 14:00] VITALS: BP 123/65
[2020-09-05 18:00] VITALS: BP 120/68
[2020-09-05] MEDS: ACETAMINOPHEN TAB 650MG DOSE (2X325MG) NG PRN (20:40)
[2020-09-05 22:00] VITALS: BP 122/68
[2020-09-06] VITALS (7 sets, daily range): BP systolic 104–127; BP diastolic 60–74
[2020-09-06] MEDS: PIPERACILLIN/TAZOBACTAM SOD 3.375 GM in D5W MINI-BAG PLUS 50 ML IV SCH ×4 (02:47→20:07)
[2020-09-06] MEDS: LEVOTHYROXINE 112MCG TABLET (0.112MG) NG SCH (05:39)
[2020-09-06 06:23] LABS: BASO # 0.1 10^3/uL (0.0-0.2); BASO % 0.5 % (0.0-1.0); EOS # 0.5 10^3/uL (0.0-0.5); EOS % 4.7 % (0.0-3.0); HEMATOCRIT 33.9 % (36.0-47.0); LYMPH # 1.8 10^3/uL (1.5-5.0); LYMPH % 17.2 % (24.0-44.0); MEAN CORPUSCULAR HEMOGLOBIN 24.9 pg (27.0-33.0); MEAN CORPUSCULAR HGB CONC 29.5 g/dl (32.0-36.5); MEAN CORPUSCULAR VOLUME 84.3 fl (80.0-96.0); MONO # 0.9 10^3/uL (0.0-0.8); MONO % 8.9 % (0.0-5.0); NEUTROPHILS # 7.1 10^3/uL (1.5-8.5); NEUTROPHILS % 68.3 % (36.0-66.0); PLATELET COUNT, AUTOMATED 278 10^3/uL (150-450); RED BLOOD COUNT 4.02 10^6/uL (4.00-5.40); WHITE BLOOD COUNT 10.3 10^3/uL (4.0-10.0)
[2020-09-06 06:52] LABS: BLOOD UREA NITROGEN 22 MG/DL (7-18); CALCIUM LEVEL 8.7 MG/DL (8.8-10.2); CARBON DIOXIDE LEVEL 31 MEQ/L (21-32); CHLORIDE LEVEL 103 MEQ/L (98-107); CREATININE FOR GFR 0.39 MG/DL (0.55-1.30); GLOMERULAR FILTRATION RATE > 60.0 (>45); GLUCOSE, FASTING 111 MG/DL (70-100); POTASSIUM SERUM 3.6 MEQ/L (3.5-5.1); SODIUM LEVEL 141 MEQ/L (136-145)
--- NOTE | 2020-09-06 08:58 | IPN ---
PROGRESS NOTE DATE: 09/05/[address] Thompson regarding her long-term plan for swing bed or return to the longterm. Patient had a gastrostomy (G) tube placed which is being used and is functioning well. She has had no fever or chills. Her white count is improving. She has no new complaints. Temperature is 98, pulse 89, respirations 18, blood pressure 120/68, oxygen saturation 94% on room air. Right ischial tuberosity with exposed bone with a decubitus ulcer with mild surrounding erythema. Hip MRI shows large right ischial ulcer tracking down to bone at the ischial tuberosity highly suspicious of osteomyelitis with adjacent granulation tissue and cellulitis. No drainable abscess. LABORATORY DATA: White count 9.9, hemoglobin 9.8, hematocrit 32.8, platelets 282, 71% neutrophils, 15% lymphocytes, 7% monocytes, ESR 63, sodium 140, potassium 4, chloride 102, bicarbonate 32, BUN 17, creatinine 0.4, glucose 156, calcium 8.4. Wound culture polymicrobial lilian with heavy Pseudomonas aeruginosa, moderate Proteus, few Escherichia (E) coli, heavy Enterococcus faecalis and Enterococcus raffinosus. Pseudomonas is sensitive to levofloxacin. Proteus is resistant and Enterococcus is resistant. IMPRESSION: 1. Osteomyelitis of right ischial tuberosity from large decubitus ulcer. 2. Multiple sclerosis with multiple contractures. 3. Leukocytosis from chronic osteomyelitis has resolved after IV Zosyn was started. Currently day #3. 4. SARS-CoV-2 infection with last positive test on 08/27/2020. Patient is a longterm resident that cannot return to the nursing until SARS-CoV-2 is negative and therefore will need some bed placement. PLAN: Continue with IV Zosyn for polymicrobial osteomyelitis of the right ischium. At this point, she is receiving her IV antibiotics through an IV. A peripherally inserted central catheter (PICC) line was not an option as she has severe contractures of the arms. I would suggest once we lose her peripheral IV to switch her to Levaquin which should cover for Escherichia (E) coli and Pseudomonas and Augmentin would cover for the rest of the pathogens. Would use a dose of Levaquin 500 mg daily and Augmentin elixir through the gastrotomy (G) tube 875 mg by mouth twice a day. Case was discussed with Dr. Thompson who agrees with the plan.
[2020-09-06] MEDS: FLEET ENEMA PR SCH ×2 (09:00→10:53)
[2020-09-06] MEDS: MIRALAX *UNIT DOSE* 17GM PACKET NG SCH (10:54)
[2020-09-06] MEDS: SENOKOT S TAB NG SCH ×2 (10:54→20:06)
[2020-09-06] MEDS: NYSTATIN 100,000 UNITS/GM TOPICAL PWD 15 GM TOP SCH ×2 (10:54→20:07)
[2020-09-06] MEDS: BACLOFEN 10 MG TAB NG SCH ×4 (10:55→20:07)
[2020-09-06] MEDS: oxyBUTYnin 5 MG TAB NG SCH ×2 (10:55→20:07)
[2020-09-06] MEDS: METOPROLOL TART 25 MG TABLET NG SCH (10:58)
--- NOTE | 2020-09-06 11:20 | IPNPDOC ---
Text Note Date of Service The patient was seen on 09/06/20. NOTE SUBJECTIVE: She complains of back pain. No fever or chills. PEG tube in place working well. Cannot get PICC line due to contractures. Reviewed cultures with Dr Marshall. PHYSICAL EXAMINATION: VITAL SIGNS: Please see below. GENERAL:cachectic bitemporal wasting slow to speak but comprehensible, awake and alert and understands and follows commands. HEENT: no JVD dry mm NG tube in left nares CARDIOVASCULAR: S1S2 RRR, no murmur or gallop RESPIRATORY: Overall diminished with bibasal crackles. ABDOMINAL: soft non tender, non distended. +bs chronic torres, PEG tube in place. BACK: Right ischial tuberosity decubitii stage 4, 4 cm x 4 cm. Right sacral debubiti 2 cm x 2 cm stage 2. EXTREMITIES: contracted b/l UE, LE atrophy b/l, foot drop. No edema. LABORATORY DATA, IMAGING STUDIES, MICROBIOLOGY: Please see below. Radiology: MRI BRAIN 08/25/20 1. Extensive white matter changes typical of multiple sclerosis. No signs of active demyelination. 2. No acute findings. MRI Hip 1. Large deep right ischial ulcer tracking down to bone at the ischial tuberosity where there are findings highly suspicious for osteomyelitis. Adjacent granulation tissue and cellulitis. No drainable abscess. 2. At least low grade partial tearing at the origin of the right common hamstring tendon. 3. Diffuse fatty muscle atrophy and diffuse muscle edema which is more pronounced in the bilateral hip short adductor musculature. 4. Torres catheter balloon in the bladder. Although the bladder is not distended, it is not completely collapsed. Suggest correlation with function of the Torres catheter and whether it is clamped. 5. Large amount of stool and gas in the rectosigmoid colon with findings suggesting proctitis. 6. Probable small partial thickness nondisplaced right superior labral tear. ASSESSMENT AND PLAN: 65y/o F with chronic progressive MS with functional q uadriplegia, neurogenic bladder w chronic torres catheter, H/O SADI, Hypothyroidism, anxiety/depression, anemia of chronic disease, severe protein calorie malnutrition BMI 17.1 w cachexia and muscle atrophy / bitemporal wasting transferred from [facility] where she presented with Sepsis felt to be due to Pseudomonas UTI, treated with Cefepime. She was also COVID positive from 08/11/20. She was also having dysphagia with failure to thrive so needed a PEG tube placement for Pseudomonas for feeding tube placement. Right ischial tuberosity Osteomyelitis Has deep decubitus ulcer there with bone exposed, started on zosyn 09/02/20 will continue while in hospital will be discharged with PO levofloxacin and Augmentin susp through G tube. While in hospital if we loose IV access will start the oral regimen. Right ischial tuberosity and right sacral decubitii ulcers. Stage IV pressure ulcer on the right ischial tuberosity with bone exposed about 4x 4 cm Stage 2 over the sacrum 2cm x 2cm S/P incision and debridement on 08/31/[address] Carlson. Wound care Recurrent UTI due to Chronic indwelling Torres catheter/ Neurogenic bladder- MS Most recent cultures with VRE and pseudomonas treated with Cefepime and linezolid finished on 08/28/20 Dysphagia s/p PEG tube placement on 09/03/20 COVID-19 infection Diagnosed on 08/11/2020; repeat on 08/21/2020 positive repeat on 08/27/20 positive will again repeat on 09/08/20 CTA at [facility] on 08/14 was consistent with COVID-like changes Out of infective period at present. will need to go to swing bed before going back to [place]. Severe protein calorie malnutrition Was on NG tube feeds Now has PEG tube feeding to start Multiple sclerosis (20 years; bed bound; Functional quadriplegia) with contractures and muscle atrophy, Neurogenic bladder turn q2hrs and reposition. cough and incentive spirometry MRI Brain: no acute changes indicative of exacerbation Baclofen for muscle spasm, Oxybutynin for bladder spasms, [place] chronic pain. HTN resolved. Now Bp low normal range will stop metoprolol. SADI resolved due to weight loss. Hypothyroidism synthroid Anemia due to chronic disease Anxiety / Depression chronic Constipation / History of fecal impaction bowel regimen Osteoporosis chronic GERD PPI DVT prophylaxis Heparin Code status: DNR / Trial intubation (non-invasive) healthcare proxy, Raquel at [phone] VS,Fishbone, I+O VS, Fishbone, I+O Laboratory Tests 09/06/20 05:39 Vital Signs Date Time Temp Pulse Resp B/P (MAP) Pulse Ox O2 Delivery O2 Flow Rate FiO2 1/30/21 10:58 89 113/60 09/06/20 10:00 97.1 17 91 Room Air I&O- Last 24 Hours up to 6 AM 09/06/20 06:00 Intake Total 840 ml Output Total 1150 ml Balance -310 ml KANDACE HERNANDEZ MD Sep 06, 2020 11:20
[2020-09-06] MEDS: ACETAMINOPHEN TAB 650MG DOSE (2X325MG) NG PRN (17:58)
[2020-09-07] MEDS: PIPERACILLIN/TAZOBACTAM SOD 3.375 GM in D5W MINI-BAG PLUS 50 ML IV SCH ×4 (02:09→20:03)
[2020-09-07] MEDS: ACETAMINOPHEN TAB 650MG DOSE (2X325MG) NG PRN (05:33)
[2020-09-07] MEDS: LEVOTHYROXINE 112MCG TABLET (0.112MG) NG SCH (05:33)
[2020-09-07 06:00] VITALS: BP 116/62
[2020-09-07 07:43] LABS: BASO # 0.1 10^3/uL (0.0-0.2); BASO % 0.5 % (0.0-1.0); EOS # 0.5 10^3/uL (0.0-0.5); EOS % 4.2 % (0.0-3.0); HEMOGLOBIN 9.9 g/dl (12.0-15.5); LYMPH # 1.7 10^3/uL (1.5-5.0); LYMPH % 14.7 % (24.0-44.0); MEAN CORPUSCULAR HGB CONC 28.3 g/dl (32.0-36.5); MONO # 0.8 10^3/uL (0.0-0.8); NEUTROPHILS # 8.3 10^3/uL (1.5-8.5); NEUTROPHILS % 73.1 % (36.0-66.0); PLATELET COUNT, AUTOMATED 277 10^3/uL (150-450); RED BLOOD COUNT 4.12 10^6/uL (4.00-5.40); WHITE BLOOD COUNT 11.4 10^3/uL (4.0-10.0)
[2020-09-07 08:08] LABS: BLOOD UREA NITROGEN 13 MG/DL (7-18); CALCIUM LEVEL 8.6 MG/DL (8.8-10.2); CARBON DIOXIDE LEVEL 29 MEQ/L (21-32); CHLORIDE LEVEL 102 MEQ/L (98-107); CREATININE FOR GFR 0.37 MG/DL (0.55-1.30); GLOMERULAR FILTRATION RATE > 60.0 (>45); GLUCOSE, FASTING 103 MG/DL (70-100); SODIUM LEVEL 141 MEQ/L (136-145)
--- NOTE | 2020-09-07 08:44 | IPNPDOC ---
Text Note Date of Service The patient was seen on 09/07/20. NOTE SUBJECTIVE: No new complaints this morning. No fever or chills. PEG tube in p lace working well. Cannot get PICC line due to contractures. Reviewed cultures with Dr Marshall. PHYSICAL EXAMINATION: VITAL SIGNS: Please see below. GENERAL:cachectic bitemporal wasting slow to speak but comprehensible, awake and alert and understands and follows commands. HEENT: no JVD dry mm NG tube in left nares CARDIOVASCULAR: S1S2 RRR, no murmur or gallop RESPIRATORY: Overall diminished with bibasal crackles. ABDOMINAL: soft non tender, non distended. +bs chronic torres, PEG tube in place. BACK: Right ischial tuberosity decubitii stage 4, 4 cm x 4 cm. Right sacral debubiti 2 cm x 2 cm stage 2. EXTREMITIES: contracted b/l UE, LE atrophy b/l, foot drop. No edema. LABORATORY DATA, IMAGING STUDIES, MICROBIOLOGY: Please see below. Radiology: MRI BRAIN 08/25/20 1. Extensive white matter changes typical of multiple sclerosis. No signs of active demyelination. 2. No acute findings. MRI Hip 1. Large deep right ischial ulcer tracking down to bone at the ischial tuberosity where there are findings highly suspicious for osteomyelitis. Adjacent granulation tissue and cellulitis. No drainable abscess. 2. At least low grade partial tearing at the origin of the right common hamstring tendon. 3. Diffuse fatty muscle atrophy and diffuse muscle edema which is more pronounced in the bilateral hip short adductor musculature. 4. Torres catheter balloon in the bladder. Although the bladder is not distended, it is not completely collapsed. Suggest correlation with function of the Torres catheter and whether it is clamped. 5. Large amount of stool and gas in the rectosigmoid colon with findings suggesting proctitis. 6. Probable small partial thickness nondisplaced right superior labral tear. ASSESSMENT AND PLAN: 65y/o F with chronic progressive MS with functional quadriplegia, neurogenic bladder w chronic torres catheter, H/O SADI, Hypothyroidism, anxiety/depression, anemia of chronic disease, severe protein calorie malnutrition BMI 17.1 w cachexia and muscle atrophy / bitemporal wasting [facility] Sepsis felt to be due to Pseudomonas UTI, treated with Cefepime. She was also COVID positive from 08/11/20. She was also having dysphagia with failure to thrive so needed a PEG tube placement for Pseudomonas for feeding tube placement. Right ischial tuberosity Osteomyelitis Has deep decubitus ulcer there with bone exposed, started on zosyn 09/02/20 will continue while in hospital will be discharged with PO levofloxacin and Augmentin susp through G tube. While in hospital if we loose IV access will start the oral regimen. Right ischial tuberosity and right sacral decubitii ulcers. Stage IV pressure ulcer on the right ischial tuberosity with bone exposed about 4x 4 cm Stage 2 over the sacrum 2cm x 2cm S/P incision and debridement on 08/31/[address] Carlson. Wound care Recurrent UTI due to Chronic indwelling Torres catheter/ Neurogenic bladder- MS Most recent cultures with VRE and pseudomonas treated with Cefepime and linezolid finished on 08/28/20 Dysphagia s/p PEG tube placement on 09/03/20 COVID-19 infection Diagnosed on 08/11/2020; repeat on 08/21/2020 positive repeat on 08/27/20 positive will again repeat on 09/08/20 CTA at [facility] on 08/14 was consistent with COVID-like changes Out of infective period at present. will need to go to swing bed before going back to [place]. Severe protein calorie malnutrition Was on NG tube feeds Now has PEG tube feeding to start Multiple sclerosis (20 years; bed bound; Functional quadriplegia) with contractures and muscle atrophy, Neurogenic bladder turn q2hrs and reposition. cough and incentive spirometry MRI Brain: no acute changes indicative of exacerbation Baclofen for muscle spasm, Oxybutynin for bladder spasms, [place] chronic pain. HTN resolved. Now Bp low normal range will stop metoprolol. SADI resolved due to weight loss. Hypothyroidism synthroid Anemia due to chronic disease Anxiety / Depression chronic Constipation / History of fecal impaction bowel regimen Osteoporosis chronic GERD PPI DVT prophylaxis Heparin Code status: DNR / Trial intubation (non-invasive) healthcare proxy, Raquel at [phone] VS,Fishbone, I+O VS, Fishbone, I+O Laboratory Tests 09/07/20 06:25 Vital Signs Date Time Temp Pulse Resp B/P (MAP) Pulse Ox O2 Delivery O2 Flow Rate FiO2 09/07/20 06:00 96.9 84 17 116/62 (58) 98 Room Air I&O- Last 24 Hours up to 6 AM 09/07/20 06:00 Intake Total 1490 ml Output Total 825 ml Balance 665 ml KANDACE HERNANDEZ MD Sep 07, 2020 08:44
[2020-09-07] MEDS: MIRALAX *UNIT DOSE* 17GM PACKET NG SCH ×2 (09:00→09:01)
[2020-09-07] MEDS: FLEET ENEMA PR SCH (09:00)
[2020-09-07] MEDS: SENOKOT S TAB NG SCH ×2 (09:00→20:04)
[2020-09-07] MEDS: BACLOFEN 10 MG TAB NG SCH ×4 (09:01→20:05)
[2020-09-07] MEDS: oxyBUTYnin 5 MG TAB NG SCH ×2 (09:01→20:04)
[2020-09-07] MEDS: NYSTATIN 100,000 UNITS/GM TOPICAL PWD 15 GM TOP SCH ×2 (09:01→20:05)
[2020-09-07 10:00] VITALS: BP 118/64
[2020-09-07 13:56] VITALS: BP 123/72
[2020-09-07 19:12] VITALS: BP 120/71
[2020-09-07 22:00] VITALS: BP 128/85
[2020-09-08 02:00] VITALS: BP 106/66
[2020-09-08] MEDS: PIPERACILLIN/TAZOBACTAM SOD 3.375 GM in D5W MINI-BAG PLUS 50 ML IV SCH ×4 (02:32→20:28)
[2020-09-08] MEDS: LEVOTHYROXINE 112MCG TABLET (0.112MG) NG SCH (05:33)
[2020-09-08 06:00] VITALS: BP 119/81
[2020-09-08 06:22] LABS: BASO # 0.1 10^3/uL (0.0-0.2); BASO % 0.4 % (0.0-1.0); EOS # 0.6 10^3/uL (0.0-0.5); EOS % 5.1 % (0.0-3.0); HEMATOCRIT 34.7 % (36.0-47.0); LYMPH # 1.9 10^3/uL (1.5-5.0); LYMPH % 15.3 % (24.0-44.0); MEAN CORPUSCULAR HEMOGLOBIN 24.6 pg (27.0-33.0); MEAN CORPUSCULAR HGB CONC 28.8 g/dl (32.0-36.5); MEAN CORPUSCULAR VOLUME 85.3 fl (80.0-96.0); MONO % 8.3 % (0.0-5.0); NEUTROPHILS # 8.8 10^3/uL (1.5-8.5); NEUTROPHILS % 70.4 % (36.0-66.0); PLATELET COUNT, AUTOMATED 284 10^3/uL (150-450); RED BLOOD COUNT 4.07 10^6/uL (4.00-5.40); WHITE BLOOD COUNT 12.5 10^3/uL (4.0-10.0)
[2020-09-08 07:14] LABS: BLOOD UREA NITROGEN 11 MG/DL (7-18); C REACTIVE PROTEIN QUANTITATIV 3.12 MG/DL (0.00-0.30); CALCIUM LEVEL 8.8 MG/DL (8.8-10.2); CARBON DIOXIDE LEVEL 27 MEQ/L (21-32); CHLORIDE LEVEL 105 MEQ/L (98-107); CREATININE FOR GFR 0.38 MG/DL (0.55-1.30); GLOMERULAR FILTRATION RATE > 60.0 (>45); GLUCOSE, FASTING 124 MG/DL (70-100); POTASSIUM SERUM 3.5 MEQ/L (3.5-5.1); SODIUM LEVEL 141 MEQ/L (136-145)
[2020-09-08 08:44] LABS: ERYTHROCYTE SEDIMENTATION RATE 68 mm/hr (0-30)
[2020-09-08] MEDS: FLEET ENEMA PR SCH (10:16)
[2020-09-08] MEDS: SENOKOT S TAB NG SCH ×2 (10:17→20:28)
[2020-09-08] MEDS: oxyBUTYnin 5 MG TAB NG SCH ×2 (10:17→20:28)
[2020-09-08] MEDS: MIRALAX *UNIT DOSE* 17GM PACKET NG SCH (10:17)
[2020-09-08] MEDS: BACLOFEN 10 MG TAB NG SCH ×4 (10:17→20:28)
[2020-09-08] MEDS: NYSTATIN 100,000 UNITS/GM TOPICAL PWD 15 GM TOP SCH ×2 (10:17→20:29)
[2020-09-08 14:00] VITALS: BP 110/67
[2020-09-08 22:00] VITALS: BP 110/65
[2020-09-09] MEDS: PIPERACILLIN/TAZOBACTAM SOD 3.375 GM in D5W MINI-BAG PLUS 50 ML IV SCH ×2 (01:09→08:43)
[2020-09-09] MEDS: LEVOTHYROXINE 112MCG TABLET (0.112MG) NG SCH (05:34)
[2020-09-09 06:00] VITALS: BP 110/66
[2020-09-09 06:24] LABS: BASO # 0.1 10^3/uL (0.0-0.2); BASO % 0.7 % (0.0-1.0); EOS # 0.8 10^3/uL (0.0-0.5); EOS % 6.7 % (0.0-3.0); HEMATOCRIT 34.4 % (36.0-47.0); HEMOGLOBIN 10.2 g/dl (12.0-15.5); LYMPH # 1.8 10^3/uL (1.5-5.0); MEAN CORPUSCULAR HEMOGLOBIN 25.1 pg (27.0-33.0); MEAN CORPUSCULAR HGB CONC 29.7 g/dl (32.0-36.5); MEAN CORPUSCULAR VOLUME 84.5 fl (80.0-96.0); MONO # 0.9 10^3/uL (0.0-0.8); MONO % 7.8 % (0.0-5.0); NEUTROPHILS # 8.3 10^3/uL (1.5-8.5); NEUTROPHILS % 69.2 % (36.0-66.0); PLATELET COUNT, AUTOMATED 290 10^3/uL (150-450); RED BLOOD COUNT 4.07 10^6/uL (4.00-5.40)
[2020-09-09 06:43] LABS: BLOOD UREA NITROGEN 11 MG/DL (7-18); CALCIUM LEVEL 8.8 MG/DL (8.8-10.2); CARBON DIOXIDE LEVEL 22 MEQ/L (21-32); CHLORIDE LEVEL 108 MEQ/L (98-107); CREATININE FOR GFR 0.37 MG/DL (0.55-1.30); GLOMERULAR FILTRATION RATE > 60.0 (>45); GLUCOSE, FASTING 106 MG/DL (70-100); POTASSIUM SERUM 3.8 MEQ/L (3.5-5.1); SODIUM LEVEL 138 MEQ/L (136-145)
[2020-09-09] MEDS: BACLOFEN 10 MG TAB NG SCH ×4 (08:42→22:04)
[2020-09-09] MEDS: NYSTATIN 100,000 UNITS/GM TOPICAL PWD 15 GM TOP SCH ×2 (08:43→22:05)
[2020-09-09] MEDS: SENOKOT S TAB NG SCH (08:43)
[2020-09-09] MEDS: FLEET ENEMA PR SCH (08:43)
[2020-09-09] MEDS: oxyBUTYnin 5 MG TAB NG SCH ×2 (08:43→22:04)
[2020-09-09] MEDS: MIRALAX *UNIT DOSE* 17GM PACKET NG SCH (10:05)
--- NOTE | 2020-09-09 10:48 | IPN ---
PROGRESS NOTE DATE: 09/09/2020 SUBJECTIVE: Gem is stable from yesterday. She has had a long hospitalization, seems to be in stable condition today. She is not answering questions as clearly as she apparently was yesterday. PHYSICAL EXAMINATION: VITAL SIGNS: Afebrile. Vital signs are stable. Blood pressure 110/66, O2 saturation 93%. GENERAL APPEARANCE: She is mumbling her answers but not talkative. LUNGS: Decreased breath sounds. HEART: Regular rhythm. ABDOMEN: Soft, nontender. No masses. Her decubiti are dressed. EXTREMITIES: Her extremities are contracted. Her muscles are atrophied. LABORATORY DATA: White count 12,000, hemoglobin 10.2, platelets 290, sodium 138, potassium 3.8, BUN 11, creatinine 0.3, glucose 106. COVID test yesterday was positive, previous positive was from 08/27/2020. IMPRESSION: 1. Right ischial tuberosity osteomyelitis with deep decubitus ulcer, Stage IV pressure ulcers with exposed bone, currently on Zosyn, losing IV access. Will change to Levaquin and Augmentin. 2. Dysphagia. She had a PEG tube placed on 09/03. 3. COVID infection, still COVID positive, will need to go to a swing bed. 4. Severe protein calorie malnutrition. Continue PEG-tube feedings. 5. Hypertension, her metoprolol was held. Blood pressure is well-controlled without this. 6. Anemia of chronic inflammation, this is stable.
[2020-09-09 14:00] VITALS: BP 119/89
[2020-09-09] MEDS: LevoFLOXacin 500 MG TABLET PO SCH (17:15)
[2020-09-09] MEDS ORDERED: AUGMENTIN ES SUSP POWDER 600MG/5ML 125ML BTL PO SCH (21:00)
[2020-09-09 22:00] VITALS: BP 116/69
[2020-09-09] MEDS: AUGMENTIN 875 MG TAB GT SCH (22:04)
[2020-09-09] MEDS: VANCOMYCIN ORAL SOL 250MG/5ML ORAL SYRINGE PO SCH (22:04)
[2020-09-10 06:00] VITALS: BP 120/71
[2020-09-10] MEDS: LevoFLOXacin 500 MG TABLET PO SCH (06:23)
[2020-09-10] MEDS: LEVOTHYROXINE 112MCG TABLET (0.112MG) NG SCH (06:24)
[2020-09-10 06:25] LABS: BASO # 0.1 10^3/uL (0.0-0.2); BASO % 0.6 % (0.0-1.0); EOS # 0.9 10^3/uL (0.0-0.5); EOS % 7.7 % (0.0-3.0); HEMATOCRIT 34.5 % (36.0-47.0); HEMOGLOBIN 9.9 g/dl (12.0-15.5); LYMPH % 17.1 % (24.0-44.0); MEAN CORPUSCULAR HEMOGLOBIN 24.6 pg (27.0-33.0); MEAN CORPUSCULAR HGB CONC 28.7 g/dl (32.0-36.5); MEAN CORPUSCULAR VOLUME 85.6 fl (80.0-96.0); MONO # 0.8 10^3/uL (0.0-0.8); MONO % 6.5 % (0.0-5.0); NEUTROPHILS # 8.1 10^3/uL (1.5-8.5); NEUTROPHILS % 67.7 % (36.0-66.0); PLATELET COUNT, AUTOMATED 301 10^3/uL (150-450); RED BLOOD COUNT 4.03 10^6/uL (4.00-5.40); WHITE BLOOD COUNT 11.9 10^3/uL (4.0-10.0)
[2020-09-10 06:49] LABS: BLOOD UREA NITROGEN 12 MG/DL (7-18); CALCIUM LEVEL 9.3 MG/DL (8.8-10.2); CARBON DIOXIDE LEVEL 27 MEQ/L (21-32); CHLORIDE LEVEL 110 MEQ/L (98-107); GLOMERULAR FILTRATION RATE > 60.0 (>45); GLUCOSE, FASTING 131 MG/DL (70-100); POTASSIUM SERUM 3.7 MEQ/L (3.5-5.1); SODIUM LEVEL 143 MEQ/L (136-145)
[2020-09-10] MEDS: FLEET ENEMA PR SCH (09:00)
[2020-09-10] MEDS: BACLOFEN 10 MG TAB NG SCH ×4 (09:40→21:10)
[2020-09-10] MEDS: AUGMENTIN 875 MG TAB GT SCH ×2 (09:40→21:10)
[2020-09-10] MEDS: VANCOMYCIN ORAL SOL 250MG/5ML ORAL SYRINGE PO SCH ×2 (09:40→21:10)
[2020-09-10] MEDS: oxyBUTYnin 5 MG TAB NG SCH ×2 (09:40→21:10)
[2020-09-10] MEDS: NYSTATIN 100,000 UNITS/GM TOPICAL PWD 15 GM TOP SCH ×2 (09:40→21:11)
--- NOTE | 2020-09-10 10:13 | IPN ---
PROGRESS NOTE DATE: 09/10/2020 SUBJECTIVE: Gem is stable from yesterday and does not seem to have any significant problems. She was more alert today and answered questions appropriate. OBJECTIVE: VITAL SIGNS: Stable, afebrile. GENERAL APPEARANCE: Answers are appropriate for questions. LUNGS: Decreased breath sounds. HEART: Regular rate and rhythm. ABDOMEN: Soft and nontender. EXTREMITIES: Decubiti are dressed. Extremities are contracted. LABORATORY DATA: White count 11.9, hemoglobin 9.1, platelets 301,000. Sodium 143, potassium 3.7, BUN 12, creatinine 1.4, glucose 131. She was COVID positive on 09/08. ASSESSMENT AND PLAN: 1. Right tibial ulcer and osteomyelitis with stage 4 pressure ulcers with exposed bone currently on Levaquin and Augmentin with prophylactic vancomycin per infectious disease. 2. Dysphagia. Percutaneous endoscopic gastrostomy (PEG) tube placed. 3. COVID infection. COVID positive on 09/08. 4. Severe protein-calorie malnutrition. Continue her current PEG tube feedings. 5. Hypertension. Blood pressure is well-controlled. 6. Anemia of chronic inflammation, which is stable. Waiting to hear on disposition from [facility].
[2020-09-10 14:00] VITALS: BP 115/63
[2020-09-10 22:00] VITALS: BP 107/64
[2020-09-11] MEDS: LevoFLOXacin 500 MG TABLET PO SCH (05:27)
[2020-09-11] MEDS: LEVOTHYROXINE 112MCG TABLET (0.112MG) NG SCH (05:30)
[2020-09-11 06:00] VITALS: BP 116/66
[2020-09-11] MEDS: VANCOMYCIN ORAL SOL 250MG/5ML ORAL SYRINGE PO SCH ×2 (09:04→22:23)
[2020-09-11] MEDS: NYSTATIN 100,000 UNITS/GM TOPICAL PWD 15 GM TOP SCH ×2 (09:05→22:24)
[2020-09-11] MEDS: BACLOFEN 10 MG TAB NG SCH ×4 (09:05→22:24)
[2020-09-11] MEDS: FLEET ENEMA PR SCH (09:05)
[2020-09-11] MEDS: AUGMENTIN 875 MG TAB GT SCH ×2 (09:05→22:23)
[2020-09-11] MEDS: oxyBUTYnin 5 MG TAB NG SCH ×2 (09:05→22:24)
[2020-09-11] MEDS: ACETAMINOPHEN TAB 650MG DOSE (2X325MG) NG PRN (09:06)
[2020-09-11] MEDS ORDERED: LEVO500T3 PO (10:31)
[2020-09-11] MEDS ORDERED: FIRV50SO PO (10:31)
[2020-09-11] MEDS ORDERED: AMOX875T2 GT (10:31)
[2020-09-11] MEDS ORDERED: BACL10TA2 NG (10:31)
[2020-09-11] MEDS ORDERED: traMADol 50 MG TAB PO ONE (10:45)
--- NOTE | 2020-09-11 12:20 | DSES ---
DISCHARGE SUMMARY DATE OF ADMISSION: 08/25/2020 DATE OF DISCHARGE: 09/11/2020 PRINCIPAL DIAGNOSES: 1. Osteomyelitis right ischial tuberosity with stage 4 right ischial and right sacral decubiti ulcers with osteomyelitis. 2. Positive COVID infection. 3. Dysphagia with failure to thrive requiring PEG tube placement. 4. Recurrent urinary tract infection from neurogenic bladder. 5. Multiple sclerosis. 6. Recent urinary tract infection with vancomycin resistant Enterococcus and Pseudomonas treated with cefepime and linezolid. 7. COVID-associated pneumonia. 8. Severe protein-calorie malnutrition. 9. Functional quadriplegia with contractures, muscle atrophy, neurogenic bladder, and decubitus ulcers. 10. Hypothyroidism. 11. Anemia of chronic disease. CODE STATUS: DNR, noninvasive ventilatory support. HEALTH CARE PROXY: Raquel, . HISTORY: Patient was admitted for numerous medical problems, primarily osteomyelitis of the right ischial tuberosity. HOSPITAL COURSE: She had a long hospitalization. She was initially treated for polymicrobial UTI with cefepime and linezolid. She had polymicrobial wound infection from her osteomyelitis. She was seen in consultation by Dr. Marshall who has adjusted her medication. She was on IV Zosyn as well as Levaquin. The plan is for a prolonged regimen, I believe six weeks was planned. Today she had some left elbow pain. There has been no falls, injuries, or trauma. Did not respond to Tylenol so she received a single dose of tramadol. LABORATORY DATA: Significant labs: Yesterday white count was 11.9, hemoglobin 9.9, platelets 301. Sodium 143, potassium 3.7, BUN 12, creatinine 0.4, glucose 131. COVID test was positive on 08/27 as well as 09/08. Wound cultures were polymicrobial. DISPOSITION: The patient is going to [facility] swing bed today. Her activity is limited and as tolerated. DISCHARGE INSTRUCTIONS: She should follow up with her PCP after discharge from [facility] a week after discharge. Activity as tolerated. Her tube feedings are Jevity 1.5 calorie 25 mL per hour with 75 mL flush every four hours. She should follow up with Dr. Enrique Marshall from Infectious Disease after discharge. DISCHARGE MEDICATIONS: 1. Tylenol as needed. 2. Baclofen 10 mg q.i.d. 3. Bowel care as needed. 4. Lovenox 30 mg subcu daily. 5. Drisdol 50,000 units monthly. 6. Estradiol 1 gram per vagina at bedtime. 7. Augmentin 875 mg per G-tube b.i.d. for six weeks. 8. Levaquin 500 mg daily per G-tube for six weeks. 9. Levothyroxine 112 mcg daily. 10. Nystatin powder as needed. 11. Oxybutynin 5 mg b.i.d. 12. Vancomycin 125 mg b.i.d. for prophylaxis against C. difficile colitis. 13. Fleets enemas are used as needed. 14. Guaifenesin 10 mg per G-tube every four hours as needed for cough or congestion.
[2020-09-11 14:00] VITALS: BP 117/66
[2020-09-11 22:00] VITALS: BP 116/67
[2020-09-12 06:00] VITALS: BP 118/73
[2020-09-12] MEDS: ACETAMINOPHEN TAB 650MG DOSE (2X325MG) NG PRN (06:09)
[2020-09-12] MEDS: LEVOTHYROXINE 112MCG TABLET (0.112MG) NG SCH (06:09)
[2020-09-12] MEDS: LevoFLOXacin 500 MG TABLET PO SCH (06:09)
[2020-09-12] MEDS: VANCOMYCIN ORAL SOL 250MG/5ML ORAL SYRINGE PO SCH ×2 (09:00→20:40)
[2020-09-12] MEDS: FLEET ENEMA PR SCH (09:00)
[2020-09-12] MEDS: oxyBUTYnin 5 MG TAB NG SCH ×2 (10:17→20:40)
[2020-09-12] MEDS: AUGMENTIN 875 MG TAB GT SCH ×2 (10:17→20:40)
[2020-09-12] MEDS: BACLOFEN 10 MG TAB NG SCH ×4 (10:17→20:41)
[2020-09-12] MEDS: NYSTATIN 100,000 UNITS/GM TOPICAL PWD 15 GM TOP SCH ×2 (10:17→20:41)
[2020-09-12 14:00] VITALS: BP 133/68
[2020-09-12 22:00] VITALS: BP 119/73
[2020-09-13] MEDS: LEVOTHYROXINE 112MCG TABLET (0.112MG) NG SCH (05:47)
[2020-09-13] MEDS: LevoFLOXacin 500 MG TABLET PO SCH (05:47)
[2020-09-13] MEDS: ACETAMINOPHEN TAB 650MG DOSE (2X325MG) NG PRN ×2 (05:48→21:48)
[2020-09-13 06:00] VITALS: BP 114/74
[2020-09-13] MEDS: FLEET ENEMA PR SCH (09:00)
[2020-09-13] MEDS: BACLOFEN 10 MG TAB NG SCH ×4 (09:51→21:49)
[2020-09-13] MEDS: oxyBUTYnin 5 MG TAB NG SCH ×2 (09:51→21:49)
[2020-09-13] MEDS: AUGMENTIN 875 MG TAB GT SCH ×2 (09:51→21:49)
[2020-09-13] MEDS: VANCOMYCIN ORAL SOL 250MG/5ML ORAL SYRINGE PO SCH ×2 (09:51→21:48)
[2020-09-13] MEDS: NYSTATIN 100,000 UNITS/GM TOPICAL PWD 15 GM TOP SCH ×2 (09:52→21:49)
[2020-09-13 14:00] VITALS: BP 121/66
[2020-09-13 22:00] VITALS: BP 111/60
[2020-09-14] MEDS: LevoFLOXacin 500 MG TABLET PO SCH (05:29)
[2020-09-14] MEDS: ACETAMINOPHEN TAB 650MG DOSE (2X325MG) NG PRN (05:29)
[2020-09-14] MEDS: LEVOTHYROXINE 112MCG TABLET (0.112MG) NG SCH (05:30)
[2020-09-14 06:00] VITALS: BP 127/74
[2020-09-14] MEDS: FLEET ENEMA PR SCH (09:00)
[2020-09-14] MEDS: VANCOMYCIN ORAL SOL 250MG/5ML ORAL SYRINGE PO SCH ×2 (09:55→21:12)
[2020-09-14] MEDS: NYSTATIN 100,000 UNITS/GM TOPICAL PWD 15 GM TOP SCH ×2 (09:56→21:13)
[2020-09-14] MEDS: BACLOFEN 10 MG TAB NG SCH ×4 (09:56→21:12)
[2020-09-14] MEDS: AUGMENTIN 875 MG TAB GT SCH ×2 (09:56→21:12)
[2020-09-14] MEDS: oxyBUTYnin 5 MG TAB NG SCH ×2 (09:56→21:12)
--- NOTE | 2020-09-14 22:12 | IPN ---
PROGRESS NOTE DATE: 09/14/2020 SUBJECTIVE: Last I saw Gerardo Cifuentes was on 09/11/2020, I was told she was being discharged to [facility] swing bed and dictated her discharge summary. Today, it was revealed to the hospitalist [facility] that the patient was never discharged and has been sitting [facility] without any medical evaluation since that date. There was no communication about this, and this was the first I or the hospitalist group was aware that the patient was not discharged. She seems stable. I do not see any change. Blood pressure is 124/74. She has been afebrile, O2 sat is 95%. She is alert and communicates with me. PHYSICAL EXAMINATION: Exam is unchanged. I did not get a chance to see her decubiti. LAST LABS: Were four days ago. IMPRESSION AND PLAN: As noted above; was not made aware that this patient had not been discharged. I will put on SNF level of care. We will get some lab work tomorrow. CURRENT MEDICATIONS: Look appropriate for her current condition.
[2020-09-15] MEDS: LevoFLOXacin 500 MG TABLET PO SCH (05:28)
[2020-09-15] MEDS: LEVOTHYROXINE 112MCG TABLET (0.112MG) NG SCH (05:30)
[2020-09-15 06:00] VITALS: BP 120/70
[2020-09-15 06:32] LABS: HEMOGLOBIN 10.1 g/dl (12.0-15.5); MEAN CORPUSCULAR HEMOGLOBIN 25.2 pg (27.0-33.0); MEAN CORPUSCULAR HGB CONC 29.7 g/dl (32.0-36.5); MEAN CORPUSCULAR VOLUME 84.8 fl (80.0-96.0); PLATELET COUNT, AUTOMATED 431 10^3/uL (150-450); RED BLOOD COUNT 4.01 10^6/uL (4.00-5.40); WHITE BLOOD COUNT 11.6 10^3/uL (4.0-10.0)
[2020-09-15 07:10] LABS: BLOOD UREA NITROGEN 14 MG/DL (7-18); CALCIUM LEVEL 8.8 MG/DL (8.8-10.2); CARBON DIOXIDE LEVEL 29 MEQ/L (21-32); CHLORIDE LEVEL 107 MEQ/L (98-107); CREATININE FOR GFR 0.36 MG/DL (0.55-1.30); GLOMERULAR FILTRATION RATE > 60.0 (>45); GLUCOSE, FASTING 87 MG/DL (70-100); POTASSIUM SERUM 4.4 MEQ/L (3.5-5.1); SODIUM LEVEL 143 MEQ/L (136-145)
[2020-09-15] MEDS: oxyBUTYnin 5 MG TAB NG SCH ×2 (11:01→22:38)
[2020-09-15] MEDS: AUGMENTIN 875 MG TAB GT SCH ×2 (11:01→22:36)
[2020-09-15] MEDS: FLEET ENEMA PR SCH (11:02)
[2020-09-15] MEDS: NYSTATIN 100,000 UNITS/GM TOPICAL PWD 15 GM TOP SCH ×2 (11:02→22:37)
[2020-09-15] MEDS: VANCOMYCIN ORAL SOL 250MG/5ML ORAL SYRINGE PO SCH ×2 (11:02→22:35)
[2020-09-15] MEDS: BACLOFEN 10 MG TAB NG SCH ×4 (11:04→22:36)
[2020-09-15 15:00] VITALS: BP 116/65
[2020-09-15 16:37] LABS: C REACTIVE PROTEIN QUANTITATIV 1.19 MG/DL (0.00-0.30)
[2020-09-15] MEDS: ACETAMINOPHEN TAB 650MG DOSE (2X325MG) NG PRN (22:37)
[2020-09-16 06:00] VITALS: BP 124/58
[2020-09-16] MEDS: LEVOTHYROXINE 112MCG TABLET (0.112MG) NG SCH (06:38)
[2020-09-16] MEDS: LevoFLOXacin 500 MG TABLET PO SCH (06:38)
[2020-09-16] MEDS: FLEET ENEMA PR SCH (09:00)
[2020-09-16] MEDS: VANCOMYCIN ORAL SOL 250MG/5ML ORAL SYRINGE PO SCH ×2 (09:26→22:32)
[2020-09-16] MEDS: BACLOFEN 10 MG TAB NG SCH ×4 (09:26→22:34)
[2020-09-16] MEDS: oxyBUTYnin 5 MG TAB NG SCH ×2 (09:26→22:34)
[2020-09-16] MEDS: AUGMENTIN 875 MG TAB GT SCH ×2 (09:26→22:32)
[2020-09-16] MEDS: NYSTATIN 100,000 UNITS/GM TOPICAL PWD 15 GM TOP SCH ×2 (09:27→22:34)
[2020-09-16] MEDS: ACETAMINOPHEN TAB 650MG DOSE (2X325MG) NG PRN (22:33)
[2020-09-17] MEDS: LEVOTHYROXINE 112MCG TABLET (0.112MG) NG SCH (05:38)
[2020-09-17] MEDS: LevoFLOXacin 500 MG TABLET PO SCH (05:38)
[2020-09-17 06:00] VITALS: BP 104/70
[2020-09-17] MEDS: ACETAMINOPHEN TAB 650MG DOSE (2X325MG) NG PRN ×2 (07:00→13:31)
[2020-09-17] MEDS: oxyBUTYnin 5 MG TAB NG SCH ×2 (08:41→21:25)
[2020-09-17] MEDS: BACLOFEN 10 MG TAB NG SCH ×4 (08:41→21:25)
[2020-09-17] MEDS: AUGMENTIN 875 MG TAB GT SCH ×2 (08:41→21:25)
[2020-09-17] MEDS: VANCOMYCIN ORAL SOL 250MG/5ML ORAL SYRINGE PO SCH ×2 (08:41→21:25)
[2020-09-17] MEDS: NYSTATIN 100,000 UNITS/GM TOPICAL PWD 15 GM TOP SCH ×2 (08:42→21:25)
[2020-09-17] MEDS: FLEET ENEMA PR SCH (10:12)
--- NOTE | 2020-09-17 12:36 | IPN ---
PROGRESS NOTE DATE: 09/17/2020 SUBJECTIVE: Gerardo seems to be doing pretty well. She has a stronger voice, is more verbal. She denies any complaints except for some back pain whenever she is turned around to examine her decubitus ulcers. She has had no fever or chills. MEDICATIONS: - Augmentin 875 mg per G-tube twice a day - levofloxacin 500 mg daily - vancomycin 125 mg twice a day preemptively to prevent Clostridium (C) difficile infection in a patient with very high risk - Nystatin powder to groin LABORATORY DATA: Sodium 143, potassium 4.4, chloride 107, bicarbonate 29, BUN 14, creatinine 0. 36, glucose 87, calcium 8.8. C-reactive protein (CRP) 1.19. White count 11.6, hemoglobin 10.1, hematocrit 34, platelets 431. Erythrocyte sedimentation rate (ESR) 68. Right hip culture had polymicrobial lilian including Pseudomonas, Proteus, Escherichia (E) coli, Enterococcus faecalis and Enterococcus raffinosus from September 02, 2020. PHYSICAL EXAMINATION: HEART: Normal S1, S2. No murmurs, rubs or gallops. LUNGS: Clear. No wheezes, rales or rhonchi. ABDOMEN: Soft, nontender. Gastrostomy (G) tube in place without any problems. No residue. Decubitus ulcer right ischial shows tuberosity with no exposed bone, some granulation tissue, 50%, some fibrinous exudate, but no surrounding cellulitis, no foul smell. Minimal serosanguineous discharge on the dressing measuring 3 x 3 cm with about 0.5 cm depth. Another ulcer on her sacral area measuring 1.5 x 1 cm. IMPRESSION: 1. Acute osteomyelitis of right ischial tuberosity from decubitus ulcer doing much better after debridement and antibiotics, treated initially with intravenous (IV) Zosyn, currently on combination Augmentin, levofloxacin. 2. High risk Clostridium (C) difficile. Patient on oral vancomycin 125 mg twice a day preemptively. 3. SARS-COV-2 infection early August, so patient is still waiting for return to snf once her COVID tests negative. PLAN: 1. Continue current antibiotics for a total of six weeks from start of therapy, which was September 02, 2020. End of treatment would be October 14, 2020. 2. Continue oral vancomycin for one week after Levaquin and Augmentin are discontinued. 3. Follow up with wound care once back to the snf. 4. Monitor with CBC, ESR, CRP every other week. MTDD
[2020-09-18] MEDS: LEVOTHYROXINE 112MCG TABLET (0.112MG) NG SCH (05:51)
[2020-09-18] MEDS: LevoFLOXacin 500 MG TABLET PO SCH (05:51)
[2020-09-18 06:00] VITALS: BP 111/70
[2020-09-18] MEDS: FLEET ENEMA PR SCH (09:00)
[2020-09-18] MEDS: AUGMENTIN 875 MG TAB GT SCH ×2 (09:45→20:38)
[2020-09-18] MEDS: VANCOMYCIN ORAL SOL 250MG/5ML ORAL SYRINGE PO SCH ×2 (09:45→20:38)
[2020-09-18] MEDS: oxyBUTYnin 5 MG TAB NG SCH ×2 (09:45→20:38)
[2020-09-18] MEDS: NYSTATIN 100,000 UNITS/GM TOPICAL PWD 15 GM TOP SCH ×2 (09:45→20:38)
[2020-09-18] MEDS: BACLOFEN 10 MG TAB NG SCH ×4 (09:45→20:38)
[2020-09-19] MEDS: LevoFLOXacin 500 MG TABLET PO SCH (05:34)
[2020-09-19] MEDS: LEVOTHYROXINE 112MCG TABLET (0.112MG) NG SCH (05:34)
[2020-09-19 06:00] VITALS: BP 133/74
[2020-09-19] MEDS: BACLOFEN 10 MG TAB NG SCH ×4 (09:00→21:38)
[2020-09-19] MEDS: oxyBUTYnin 5 MG TAB NG SCH ×2 (09:00→21:38)
[2020-09-19] MEDS: AUGMENTIN 875 MG TAB GT SCH ×2 (09:00→21:38)
[2020-09-19] MEDS: FLEET ENEMA PR SCH (09:00)
[2020-09-19] MEDS: VANCOMYCIN ORAL SOL 250MG/5ML ORAL SYRINGE PO SCH ×2 (09:00→21:38)
[2020-09-19] MEDS: NYSTATIN 100,000 UNITS/GM TOPICAL PWD 15 GM TOP SCH ×2 (09:00→21:39)
[2020-09-19] MEDS: ACETAMINOPHEN TAB 650MG DOSE (2X325MG) NG PRN (13:07)
--- NOTE | 2020-09-19 19:34 | IPN ---
PROGRESS NOTE DATE: 09/19/2020 SUBJECTIVE: Gerardo is asking about her COVID Test whether it was positive or not. She is anxious to go back to the senior living. Unfortunately, her COVID Test was still positive on 09/19/2020. She has no other complaints. No fever, chills, nausea, vomiting or diarrhea. She is tolerating her tube feeds well. OBJECTIVE: VITAL SIGNS: Temperature 97.1, pulse 77, respirations 16, blood pressure 133/74, O2 sat 96% on room air. HEART: Normal S1, S2. No murmurs, rubs or gallops. LUNGS: Clear. ABDOMEN: Soft, nontender. G tube in place. EXTREMITIES: Hip decubitus ulcer was not examined today. LABORATORY DATA: White count 11.6, hemoglobin 10.1, hematocrit 34, platelets 431,000. Sodium 143, potassium 4.4, chloride 107, bicarb 29, BUN 14, creatinine 0.36. CRP 1.19. All these labs were done on 09/15/2020 and have not been repeated. IMPRESSION: 1. Right ischial tuberosity osteomyelitis from decubitus ulcer on p.o. Levaquin and Augmentin; doing well. 2. High risk for C. difficile: Patient on oral Vancomycin prophylactically twice a day to prevent risk of C. difficile. 3. SARS-COV2 infection with persistent COVID PCR positive: Preventing her placement back to her senior living. PLAN: Continue current antibiotics for six weeks with end of therapy planned for October 14. Continue oral Vancomycin till October 21 to prevent C. difficile. Follow-up with wound care once back at the senior living and infectious disease in a couple weeks. Monitor CBC, ESR, CRP weekly; these will be ordered for Tuesday.
[2020-09-20 06:00] VITALS: BP 127/60
[2020-09-20] MEDS: LevoFLOXacin 500 MG TABLET PO SCH (06:20)
[2020-09-20] MEDS: LEVOTHYROXINE 112MCG TABLET (0.112MG) NG SCH (06:21)
[2020-09-20] MEDS: FLEET ENEMA PR SCH (09:00)
[2020-09-20] MEDS: oxyBUTYnin 5 MG TAB NG SCH ×2 (09:50→20:58)
[2020-09-20] MEDS: BACLOFEN 10 MG TAB NG SCH ×4 (09:51→20:58)
[2020-09-20] MEDS: ACETAMINOPHEN TAB 650MG DOSE (2X325MG) NG PRN (09:51)
[2020-09-20] MEDS: AUGMENTIN 875 MG TAB GT SCH ×2 (09:51→20:57)
[2020-09-20] MEDS: NYSTATIN 100,000 UNITS/GM TOPICAL PWD 15 GM TOP SCH ×2 (09:52→20:58)
[2020-09-20] MEDS: VANCOMYCIN ORAL SOL 250MG/5ML ORAL SYRINGE PO SCH ×2 (09:52→20:58)
[2020-09-21] MEDS: LEVOTHYROXINE 112MCG TABLET (0.112MG) NG SCH (05:44)
[2020-09-21] MEDS: LevoFLOXacin 500 MG TABLET PO SCH (05:44)
[2020-09-21 06:00] VITALS: BP 130/70
[2020-09-21] MEDS: AUGMENTIN 875 MG TAB GT SCH ×2 (10:07→20:51)
[2020-09-21] MEDS: BACLOFEN 10 MG TAB NG SCH ×4 (10:07→20:51)
[2020-09-21] MEDS: oxyBUTYnin 5 MG TAB NG SCH ×2 (10:07→20:51)
[2020-09-21] MEDS: VANCOMYCIN ORAL SOL 250MG/5ML ORAL SYRINGE PO SCH ×2 (10:08→20:51)
[2020-09-21] MEDS: ACETAMINOPHEN TAB 650MG DOSE (2X325MG) NG PRN (10:08)
[2020-09-21] MEDS: FLEET ENEMA PR SCH (10:08)
[2020-09-21] MEDS: NYSTATIN 100,000 UNITS/GM TOPICAL PWD 15 GM TOP SCH ×2 (10:09→20:52)
[2020-09-22] MEDS: LEVOTHYROXINE 112MCG TABLET (0.112MG) NG SCH (05:31)
[2020-09-22] MEDS: LevoFLOXacin 500 MG TABLET PO SCH (05:31)
[2020-09-22 06:00] VITALS: BP 139/86
[2020-09-22 06:04] LABS: HEMATOCRIT 35.2 % (36.0-47.0); HEMOGLOBIN 10.1 g/dl (12.0-15.5); MEAN CORPUSCULAR HEMOGLOBIN 24.2 pg (27.0-33.0); MEAN CORPUSCULAR HGB CONC 28.7 g/dl (32.0-36.5); MEAN CORPUSCULAR VOLUME 84.2 fl (80.0-96.0); PLATELET COUNT, AUTOMATED 418 10^3/uL (150-450); RED BLOOD COUNT 4.18 10^6/uL (4.00-5.40); WHITE BLOOD COUNT 11.9 10^3/uL (4.0-10.0)
[2020-09-22 06:27] LABS: ALBUMIN 2.5 GM/DL (3.2-5.2); ALT/SGPT 11 U/L (12-78); BILIRUBIN,TOTAL 0.1 MG/DL (0.2-1.0); BLOOD UREA NITROGEN 15 MG/DL (7-18); C REACTIVE PROTEIN QUANTITATIV 0.65 MG/DL (0.00-0.30); CALCIUM LEVEL 8.8 MG/DL (8.8-10.2); CARBON DIOXIDE LEVEL 28 MEQ/L (21-32); CHLORIDE LEVEL 107 MEQ/L (98-107); CREATININE FOR GFR 0.47 MG/DL (0.55-1.30); GLOMERULAR FILTRATION RATE > 60.0 (>45); GLUCOSE, FASTING 112 MG/DL (70-100); POTASSIUM SERUM 4.1 MEQ/L (3.5-5.1); SODIUM LEVEL 142 MEQ/L (136-145); TOTAL PROTEIN 7.4 GM/DL (6.4-8.2)
[2020-09-22 06:31] LABS: ERYTHROCYTE SEDIMENTATION RATE 70 mm/hr (0-30)
[2020-09-22] MEDS: FLEET ENEMA PR SCH (09:00)
[2020-09-22] MEDS: AUGMENTIN 875 MG TAB GT SCH ×2 (09:15→20:43)
[2020-09-22] MEDS: BACLOFEN 10 MG TAB NG SCH ×4 (09:15→20:43)
[2020-09-22] MEDS: oxyBUTYnin 5 MG TAB NG SCH ×2 (09:16→20:43)
[2020-09-22] MEDS: VANCOMYCIN ORAL SOL 250MG/5ML ORAL SYRINGE PO SCH ×2 (09:17→20:44)
[2020-09-22] MEDS: NYSTATIN 100,000 UNITS/GM TOPICAL PWD 15 GM TOP SCH ×2 (09:17→20:44)
[2020-09-22] MEDS: ACETAMINOPHEN TAB 650MG DOSE (2X325MG) NG PRN (10:56)
--- NOTE | 2020-09-22 13:12 | IPNPDOC ---
Text Note Date of Service The patient was seen on 09/22/20. NOTE Subjective: Patient was seen and examined this morning at bedside. Patient has her Covid test results of culture was positive on the . She says she's feeling well otherwise eager to go home back to half-way. She says she's been eating well and has no complaints at this time. Objective: Constitutional: Awake and alert, answering questions appropriately, in no apparent distress ENT: Sclera are clear. Respiratory: Lungs decreased breath sounds bilaterally. No respiratory distress. Cardiovascular: RRR S1 and S2 are normal Gastrointestinal: Abdomen is soft, non distended, non tender, BS present. Musculoskeletal: Decubiti are dressed I did not examine them. Her extremities are contracted Assessment/plan: # Right tibial ulcer and ostial myelitis and stage IV pressure ulcers with exposed bone: On oral Levaquin and Augmentin until October 14 per infectious dise ase 6 weeks total # High risk for Clostridium difficile: Patient is an oral vancomycin prophylactically twice a day up until October 21 per infectious disease # Dysphagia: PEG tube in place # Covid 19 infection: Repeat Covid 19 testing is still positive on 05/19/2021 unfortunately this is complicating her discharge back to her half-way # Anemia of chronic disease: Stable no need for daily blood work # Hypertension: Continue home meds. Monitor and titrate # Severe protein calorie malnutrition: Receiving feeding through PEG tube [facility] CASTRO, I+O Alma CASTRO I+O Laboratory Tests 09/22/20 05:31 Vital Signs Date Time Temp Pulse Resp B/P (MAP) Pulse Ox O2 Delivery O2 Flow Rate FiO2 09/22/20 06:00 97.6 81 18 139/86 (103) 95 09/21/20 06:00 Room Air I&O- Last 24 Hours up to 6 AM 09/22/20 06:00 Intake Total 2220 ml Output Total 550 ml Balance 1670 ml JADON THOMASON MD Sep 22, 2020 13:12
[2020-09-22 13:30] VITALS: BP 114/66
[2020-09-23] MEDS: LEVOTHYROXINE 112MCG TABLET (0.112MG) NG SCH (05:35)
[2020-09-23] MEDS: LevoFLOXacin 500 MG TABLET PO SCH (05:35)
[2020-09-23 06:00] VITALS: BP 126/68
[2020-09-23] MEDS: FLEET ENEMA PR SCH (09:00)
[2020-09-23] MEDS: NYSTATIN 100,000 UNITS/GM TOPICAL PWD 15 GM TOP SCH ×2 (10:17→20:27)
[2020-09-23] MEDS: VANCOMYCIN ORAL SOL 250MG/5ML ORAL SYRINGE PO SCH ×2 (10:17→20:27)
[2020-09-23] MEDS: AUGMENTIN 875 MG TAB GT SCH ×2 (10:18→20:27)
[2020-09-23] MEDS: BACLOFEN 10 MG TAB NG SCH ×4 (10:18→20:27)
[2020-09-23] MEDS: oxyBUTYnin 5 MG TAB NG SCH ×2 (10:18→20:27)
[2020-09-24] MEDS: ACETAMINOPHEN TAB 650MG DOSE (2X325MG) NG PRN (00:43)
[2020-09-24] MEDS: LevoFLOXacin 500 MG TABLET PO SCH (05:38)
[2020-09-24] MEDS: LEVOTHYROXINE 112MCG TABLET (0.112MG) NG SCH (05:39)
[2020-09-24 06:00] VITALS: BP 121/58
[2020-09-24] MEDS: FLEET ENEMA PR SCH (07:25)
[2020-09-24] MEDS: NYSTATIN 100,000 UNITS/GM TOPICAL PWD 15 GM TOP SCH ×2 (09:12→21:57)
[2020-09-24] MEDS: VANCOMYCIN ORAL SOL 250MG/5ML ORAL SYRINGE PO SCH ×2 (09:13→21:56)
[2020-09-24] MEDS: BACLOFEN 10 MG TAB NG SCH ×4 (09:13→21:58)
[2020-09-24] MEDS: AUGMENTIN 875 MG TAB GT SCH ×2 (09:13→21:56)
[2020-09-24] MEDS: oxyBUTYnin 5 MG TAB NG SCH ×2 (09:14→21:56)
[2020-09-25 06:00] VITALS: BP 135/72
[2020-09-25] MEDS: LEVOTHYROXINE 112MCG TABLET (0.112MG) NG SCH (06:32)
[2020-09-25] MEDS: LevoFLOXacin 500 MG TABLET PO SCH (06:32)
[2020-09-25] MEDS: FLEET ENEMA PR SCH (09:00)
[2020-09-25] MEDS: NYSTATIN 100,000 UNITS/GM TOPICAL PWD 15 GM TOP SCH ×2 (09:59→21:28)
[2020-09-25] MEDS: VANCOMYCIN ORAL SOL 250MG/5ML ORAL SYRINGE PO SCH ×2 (10:00→21:27)
[2020-09-25] MEDS: AUGMENTIN 875 MG TAB GT SCH ×2 (10:00→21:27)
[2020-09-25] MEDS: BACLOFEN 10 MG TAB NG SCH ×4 (10:00→21:27)
[2020-09-25] MEDS: oxyBUTYnin 5 MG TAB NG SCH ×2 (10:00→21:27)
[2020-09-25] MEDS: ACETAMINOPHEN TAB 650MG DOSE (2X325MG) NG PRN ×2 (13:23→21:27)
[2020-09-26] MEDS: LEVOTHYROXINE 112MCG TABLET (0.112MG) NG SCH (05:51)
[2020-09-26] MEDS: LevoFLOXacin 500 MG TABLET PO SCH (05:51)
[2020-09-26 06:00] VITALS: BP 115/61
[2020-09-26] MEDS: NYSTATIN 100,000 UNITS/GM TOPICAL PWD 15 GM TOP SCH ×2 (09:43→21:16)
[2020-09-26] MEDS: BACLOFEN 10 MG TAB NG SCH ×4 (09:43→21:16)
[2020-09-26] MEDS: oxyBUTYnin 5 MG TAB NG SCH ×2 (09:43→21:16)
[2020-09-26] MEDS: VANCOMYCIN ORAL SOL 250MG/5ML ORAL SYRINGE PO SCH ×2 (09:43→21:16)
[2020-09-26] MEDS: AUGMENTIN 875 MG TAB GT SCH ×2 (09:43→21:16)
--- NOTE | 2020-09-26 09:49 | IPN ---
PROGRESS NOTE DATE: 09/26/2020 SUBJECTIVE: Gem is seen [facility]. She is on SNF level of care. Status is stable per staff. OBJECTIVE: VITAL SIGNS: Afebrile. Vital signs stable 115/61. GENERAL APPEARANCE: Unchanged from last exam. LUNGS: Clear. HEART: Regular rhythm. ABDOMEN: Soft. ASSESSMENT/PLAN: 1. Right tibial ulcer with osteomyelitis stage IV pressure ulcers on oral Levaquin and Augmentin until October 14. 2. High risk for Clostridium difficile colitis. Continue oral vancomycin prophylactically to go back one week past the antibiotics discontinued (October 21). 3. Dysphagia. She is fed through a percutaneous endoscopic gastrostomy (PEG) tube. 4. Persistently positive COVID tests. This is complicating her discharge. Last positive test was on 09/19. I will order another one for Tuesday.
[2020-09-26] MEDS: FLEET ENEMA PR SCH (10:14)
[2020-09-27] MEDS: LEVOTHYROXINE 112MCG TABLET (0.112MG) NG SCH (05:38)
[2020-09-27] MEDS: LevoFLOXacin 500 MG TABLET PO SCH (05:39)
[2020-09-27 06:00] VITALS: BP 114/69
[2020-09-27] MEDS: FLEET ENEMA PR SCH (09:00)
[2020-09-27] MEDS: AUGMENTIN 875 MG TAB GT SCH ×2 (09:09→21:09)
[2020-09-27] MEDS: BACLOFEN 10 MG TAB NG SCH ×4 (09:09→21:09)
[2020-09-27] MEDS: VANCOMYCIN ORAL SOL 250MG/5ML ORAL SYRINGE PO SCH ×2 (09:09→21:09)
[2020-09-27] MEDS: oxyBUTYnin 5 MG TAB NG SCH ×2 (09:09→21:09)
[2020-09-27] MEDS: NYSTATIN 100,000 UNITS/GM TOPICAL PWD 15 GM TOP SCH ×2 (09:10→21:10)
[2020-09-28] MEDS: LevoFLOXacin 500 MG TABLET PO SCH (05:26)
[2020-09-28] MEDS: LEVOTHYROXINE 112MCG TABLET (0.112MG) NG SCH (05:30)
[2020-09-28 06:00] VITALS: BP_SYST 111; BP_SYST 114; BP_DIAS 69; BP_DIAS 70
[2020-09-28] MEDS: FLEET ENEMA PR SCH (09:00)
[2020-09-28] MEDS: oxyBUTYnin 5 MG TAB NG SCH ×2 (09:15→21:09)
[2020-09-28] MEDS: AUGMENTIN 875 MG TAB GT SCH ×2 (09:15→21:09)
[2020-09-28] MEDS: BACLOFEN 10 MG TAB NG SCH ×4 (09:15→21:09)
[2020-09-28] MEDS: VANCOMYCIN ORAL SOL 250MG/5ML ORAL SYRINGE PO SCH ×2 (09:16→21:09)
[2020-09-28] MEDS: NYSTATIN 100,000 UNITS/GM TOPICAL PWD 15 GM TOP SCH ×2 (09:17→21:09)
[2020-09-28] MEDS: ACETAMINOPHEN TAB 650MG DOSE (2X325MG) NG PRN ×2 (09:30→21:09)
[2020-09-29] MEDS: LevoFLOXacin 500 MG TABLET PO SCH (05:41)
[2020-09-29] MEDS: LEVOTHYROXINE 112MCG TABLET (0.112MG) NG SCH (05:41)
[2020-09-29 06:00] VITALS: BP 114/68
[2020-09-29 06:02] LABS: HEMATOCRIT 35.1 % (36.0-47.0); HEMOGLOBIN 9.7 g/dl (12.0-15.5); MEAN CORPUSCULAR HEMOGLOBIN 23.7 pg (27.0-33.0); MEAN CORPUSCULAR HGB CONC 27.6 g/dl (32.0-36.5); MEAN CORPUSCULAR VOLUME 85.6 fl (80.0-96.0); PLATELET COUNT, AUTOMATED 331 10^3/uL (150-450)
[2020-09-29 06:20] LABS: BLOOD UREA NITROGEN 22 MG/DL (7-18); CALCIUM LEVEL 9.1 MG/DL (8.8-10.2); CARBON DIOXIDE LEVEL 31 MEQ/L (21-32); CHLORIDE LEVEL 106 MEQ/L (98-107); CREATININE FOR GFR 0.46 MG/DL (0.55-1.30); GLOMERULAR FILTRATION RATE > 60.0 (>45); GLUCOSE, FASTING 93 MG/DL (70-100); POTASSIUM SERUM 3.9 MEQ/L (3.5-5.1); SODIUM LEVEL 141 MEQ/L (136-145)
[2020-09-29 08:30] VITALS: BP 118/70
[2020-09-29] MEDS: AUGMENTIN 875 MG TAB GT SCH ×2 (10:58→20:36)
[2020-09-29] MEDS: BACLOFEN 10 MG TAB NG SCH ×4 (10:58→20:36)
[2020-09-29] MEDS: VANCOMYCIN ORAL SOL 250MG/5ML ORAL SYRINGE PO SCH ×2 (10:59→20:37)
[2020-09-29] MEDS: oxyBUTYnin 5 MG TAB NG SCH ×2 (10:59→20:36)
[2020-09-29] MEDS: NYSTATIN 100,000 UNITS/GM TOPICAL PWD 15 GM TOP SCH ×2 (11:02→20:37)
[2020-09-29] MEDS: FLEET ENEMA PR SCH (13:00)
[2020-09-29] MEDS: ACETAMINOPHEN TAB 650MG DOSE (2X325MG) NG PRN (16:01)
[2020-09-30 06:00] VITALS: BP 116/67
[2020-09-30] MEDS: LEVOTHYROXINE 112MCG TABLET (0.112MG) NG SCH (06:00)
[2020-09-30] MEDS: LevoFLOXacin 500 MG TABLET PO SCH (06:00)
[2020-09-30] MEDS: FLEET ENEMA PR SCH (09:00)
[2020-09-30] MEDS: AUGMENTIN 875 MG TAB GT SCH ×2 (09:07→20:49)
[2020-09-30] MEDS: BACLOFEN 10 MG TAB NG SCH ×4 (09:07→20:49)
[2020-09-30] MEDS: oxyBUTYnin 5 MG TAB NG SCH ×2 (09:07→20:49)
[2020-09-30] MEDS: VANCOMYCIN ORAL SOL 250MG/5ML ORAL SYRINGE PO SCH ×2 (09:07→20:50)
[2020-09-30] MEDS: NYSTATIN 100,000 UNITS/GM TOPICAL PWD 15 GM TOP SCH ×2 (09:08→20:50)
[2020-10-01] MEDS: LevoFLOXacin 500 MG TABLET PO SCH (05:56)
[2020-10-01] MEDS: LEVOTHYROXINE 112MCG TABLET (0.112MG) NG SCH (05:56)
[2020-10-01 06:00] VITALS: BP 114/61
[2020-10-01] MEDS: FLEET ENEMA PR SCH (09:00)
[2020-10-01] MEDS: oxyBUTYnin 5 MG TAB NG SCH (09:12)
[2020-10-01] MEDS: AUGMENTIN 875 MG TAB GT SCH (09:12)
[2020-10-01] MEDS: VANCOMYCIN ORAL SOL 250MG/5ML ORAL SYRINGE PO SCH (09:12)
[2020-10-01] MEDS: BACLOFEN 10 MG TAB NG SCH ×2 (09:12→13:31)
[2020-10-01] MEDS: NYSTATIN 100,000 UNITS/GM TOPICAL PWD 15 GM TOP SCH (09:13)
[2020-10-01] MEDS ORDERED: traMADol 50 MG TAB PO ONE (10:55)
[2020-10-01] MEDS ORDERED: FIRV50SO PO (12:40)
[2020-10-01] MEDS ORDERED: LEVO500T3 PO (12:42)
[2020-10-01] MEDS ORDERED: AMOX875T2 GT (12:42)
--- NOTE | 2020-10-01 18:38 | DS.PDOC ---
Discharge Summary General Date of Admission Aug 25, 2020 at 15:30 Date of Discharge 10/01/20 Attending Physician: Keila Tesfaye MD Discharge Summary HPI: Patient is a 65-year-old female who is transferred from [facility] for urinary tract infection secondary to Pseudomonas. Patient was found to be COVID19 positive on 08/11/20, however, did not require any intervention for this. Patient presented to [facility] ER for burning with urination on 08/15/20. She was initially started on ceftriaxone for suspected Proteus UTI. She was changed to Cefepime on 08/24/20 for a Pseudomonas UTI (08/18/2020). Currently patient denies any chest pain, shortness of breath, palpitations, nausea, vomiting, abdominal pain, diarrhea. Admitting physician discussed with the patients sister, Raquel ([phone]). Patient has been having a regression in her ability to maintain her caloric intake and has had a weight loss since April 2020. Patient was admitted for dysphagia, poor oral intake possibly 2/2 to progression of MS, suspected MS exacerbation. HOSPITAL COURSE: MRI brain showed no active demyelination so exacerbation was later ruled out. During her hospitalization, PEG tube was placed and she was started on tube feedings which she has tolerated well. 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 ID was consulted and suggested abx treatment with oral Levaquin and Augmentin until October 14 per ID- 6 weeks total. She is high risk for Clostridium difficile infection so it was also suggested she continue with oral vancomycin prophylactically twice a day up until October 21 per infectious disease. Borrero catheter was placed this admission but taken out on 09/30/20 due to high risk of CAUTI. She had multiple + COVID tests which complicated her discharge back to [place] but on 09/29/20 she tested neg. She had no residual issues from this infection. Other chronic issues remained stable. On 10/01/20 patient was discharged back to [facility] to f/u with providers at the facility. At time of discharge, she denied chest pain, n/v/d, fevers, chills, shortness of breath. PMH: Multiple sclerosis (20 years; bed bound; Functional quadriplegia) SADI; not on CPAP Hypothyroidism Neurogenic bladder (s/p Borrero catheter) Anemia Anxiety / Depression Hx of Nephrolithiasis Constipation / History of fecal impaction Osteoporosis GERD PAST SURGICAL HX: Removal of upper teeth (12/2014) Dental surgery Tubal ligation DISCHARGE MEDS: Please see below PHYSICAL EXAM: VS: Please see below GENERAL: emaciated female, awake and alert, answering questions appropriately, in no apparent distress HEENT: PERRLA, head to the left side, preferred by patient. Sclera are clear. NECK: NO JVD, neck tilted to left side CVS: S1S2 +, no M/R/G PULM: Lungs decreased breath sounds bilaterally. No respiratory distress. No W /R/R GI: thin abdomen is soft, non distended, non tender, BS present. No organomegaly Musculoskeletal: Her extremities are contracted at baseline. heel protectors/boots on b/l lower ext INTEGUMENTARY: Decubiti are dressed. 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 Failure to thrive/ severe protein calorie malnutrition -Receiving feeding through PEG tube Multiple sclerosis -20 years; bed bound; Functional quadriplegia SADI -not on CPAP DISPOSITION: Discharging to [facility] today. TIME SPENT ON DISCHARGE: 35 minutes. Vital Signs/I&Os Vital Signs Date Time Temp Pulse Resp B/P (MAP) Pulse Ox O2 Delivery O2 Flow Rate FiO2 10/01/20 11:47 110 18 96 Room Air 10/01/20 06:00 97.4 114/61 (78) I&O- Last 24 Hours up to 6 AM 10/01/20 06:00 Intake Total 60 ml Output Total 0 ml Balance 60 ml Discharge Medications Scheduled Amoxicillin/Potassium Clav (Amox-Clav 875-125 mg Tablet) 1 Each Tablet, 875 MG GT BID Baclofen (Baclofen) 10 Mg Tab, 10 MG PO QID, (Reported) Baclofen (Baclofen) 10 Mg Tablet, 10 MG NG QID Levofloxacin (Levofloxacin) 500 Mg Tablet, 500 MG PO DAILY@06 Levothyroxine Sodium (Synthroid) 112 Mcg Tablet, 112 MCG PO QAM, (Reported) Oxybutynin Chloride (Oxybutynin Chloride ER) 5 Mg Tab.er.24, 5 MG PO BID, (Reported) Vancomycin HCl (Firvanq) 50 Mg/1 Ml Soln.recon, 125 MG PO BID Scheduled PRN Acetaminophen (Acetaminophen) 325 Mg Tab, 650 MG PO Q6H PRN for FEVER, (Reported) Acetaminophen (Acetaminophen) 650 Mg Supp.rect, 650 MG IN Q6H PRN for PAIN, (Reported) Guaifenesin (Guaifenesin) 100 Mg/5 Ml Liquid, 10 ML PO Q4H PRN for emeli, (Reported) Sodium Phosphate,[place]-Dibasic (Fleet Enema) 133 Ml Enema, 1 SILVESTRE IN DAILY PRN for CONSTIPATION, (Reported) Allergies Coded Allergies: ciprofloxacin (Verified Allergy, Unknown, 04/20/20) Keila Tesfaye MD Oct 01, 2020 18:38
== END 2020-10-01 16:46 | DRG 981 ==
LOC: M MSPAV 15:30
PROVIDERS: ADMIT Internal Medicine Nephrology; ATTEND Internal Medicine
PROC: 0KBF0ZZ Excision of Right Trunk Muscle, Open Approach (ICD-10-PCS; principal; 2020-08-31)
PROC: 0DH64UZ Insertion of Feeding Device into Stomach, Percutaneous Endoscopic Approach (ICD-10-PCS; 2020-09-03)
DX: R13.10 Dysphagia, unspecified (principal); E43 Unspecified severe protein-calorie malnutrition; R53.2 Functional quadriplegia; U07.1 COVID-19; L89.153 Pressure ulcer of sacral region, stage 3; L89.314 Pressure ulcer of right buttock, stage 4; R64 Cachexia; T83.511A Infection and inflammatory reaction due to indwelling urethral catheter, initial encounter; N39.0 Urinary tract infection, site not specified; M86.18 Other acute osteomyelitis, other site; G35 Multiple sclerosis; N31.9 Neuromuscular dysfunction of bladder, unspecified; E03.9 Hypothyroidism, unspecified; G47.33 Obstructive sleep apnea (adult) (pediatric); F41.9 Anxiety disorder, unspecified; F32.9 Major depressive disorder, single episode, unspecified; K21.9 Gastro-esophageal reflux disease without esophagitis; M81.0 Age-related osteoporosis without current pathological fracture; Z79.899 Other long term (current) drug therapy; Z88.8 Allergy status to other drugs, medicaments and biological substances; Z66 Do not resuscitate; D63.8 Anemia in other chronic diseases classified elsewhere; B96.5 Pseudomonas (aeruginosa) (mallei) (pseudomallei) as the cause of diseases classified elsewhere; B37.2 Candidiasis of skin and nail; Z93.1 Gastrostomy status

== ENCOUNTER 2020-11-01 18:42 | Emergency (ER) | payer MEDICARE, MEDICAID ==
[~2020-11-01 18:42] MED LIST changes: +AMOX875T2 GT; +BACL10TA2 NG; +CEFE1INJ IV; +ENOX30IN3 SC; +FIRV50SO PO; +LEVO500T3 PO; +METO1TAB32 PO; +POTA10CA32 PO; +SENO8.6T10 PO; +SYNT112T2 PO; +[UNRECOGNIZED DRUG - CODE] IV
[2020-11-01] MEDS ORDERED: GASTROGRAFIN SOLUTION 30ML (Q9963) GT ONE (19:45)
--- NOTE | 2020-11-01 21:54 | REPVR ---
PROCEDURE INFORMATION: Exam: XR Abdomen Exam date and time: 11/01/2020 8:58 PM Age: 65 years old Clinical indication: Device placement; Gi device; Other: G tube; Additional info: Check g tube placement with gastrografin through g tube TECHNIQUE: Imaging protocol: XR of the abdomen. Views: Frontal supine view of the abdomen. 1 View. Other contrast: Catheter, prohance, 10 ml ; COMPARISON: CR ABDOMEN, 1 VIEW - OUTSIDE PRIOR 08/23/2020 6:14 PM FINDINGS: Tubes, catheters and devices: There is a percutaneous gastrostomy tube entering into the body of the stomach in appropriate position. Gastrointestinal tract: Injected contrast material is seen within the lumen of the stomach and duodenal bulb without extraluminal extravasation. There are nonspecific air-fluid loops of bowel. No dilated loops of bowel are noted. Bones/joints: Unremarkable. Other findings: Embolization coils are noted in the left upper quadrant of the abdomen. IMPRESSION: Gastrostomy tube in appropriate position in the body of the stomach. Electronically signed by: Jad Patricio On 11/01/2020 21:54:29 PM
[2020-11-01 22:12] VITALS: BP 111/69
== END 2020-11-01 22:21 | disposition home or self-care (01) ==
LOC: M ED 18:42
DX: K94.29 Other complications of gastrostomy (principal); Z88.1 Allergy status to other antibiotic agents; G82.50 Quadriplegia, unspecified; K21.9 Gastro-esophageal reflux disease without esophagitis; E03.9 Hypothyroidism, unspecified; F33.9 Major depressive disorder, recurrent, unspecified; F41.9 Anxiety disorder, unspecified; Z79.899 Other long term (current) drug therapy; Z79.890 Hormone replacement therapy
CPT/HCPCS: 74018; 99284; Q9963